=== PATIENT | male | born 1960 | race American Indian/Alaskan Native ===

== ENCOUNTER 2017-02-24 11:29 | Emergency (ER) | payer MEDICARE, MEDICAID ==
[2017-02-24 11:41] VITALS: BP 98/83
[2017-02-24] MEDS ORDERED: Bupivacaine 0.5%/EPINEPHrine 1:200,000 30 ML SDV INJECT ONE (12:02)
--- NOTE | 2017-02-24 12:04 | EDM.PDOC ---
ED HPI Skin/Rash - General Chief Complaint: Skin Complaint Stated Complaint: BOIL ON TESTICLE Time Seen by Provider: 02/24/17 11:51 Source: Reports: Patient - History of Present Illness INITIAL COMMENTS - FREE TEXT/NARRATIVE: Patient here today as he has noted a boil on his scrotum. He first noted this 2 days ago and this is growing and painful. Denies fever/chills. 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 ELECTRICIAN: Reports: Other (see below) Other 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 ELECTRICIAN: percocet at 0600 - Related Data Allergies Allergy/AdvReac Type Severity Reaction Status Date / Time No Known Allergies Allergy Verified 02/24/17 11:33 Home Meds: Ambulatory Orders Medication Instructions Recorded Confirmed Clopidogrel [Plavix] 75 mg PO DAILY 01/15/15 12/09/16 Rosuvastatin [Crestor] 1 tab PO BEDTIME 01/15/15 12/09/16 Cyclobenzaprine [Flexeril] 10 mg PO TID 04/20/16 12/09/16 Isosorbide Mononitrate [Isosorbide 120 mg PO BID 04/20/16 12/09/16 Mononitrate ER] Metoprolol Tartrate [Metoprolol 25 mg PO BID 04/20/16 12/09/16 Tartrate] Ranolazine [Ranexa] 500 mg PO BID 04/20/16 12/09/16 Acetaminophen/oxyCODONE [Percocet 1 tab PO Q8HR PRN 08/15/16 12/09/16 325-5 MG] Fluticasone/Salmeterol [Advair 1 puff INH BID PRN 08/15/16 12/09/16 250-50 Diskus] Pantoprazole [Protonix] 40 mg PO DAILY 08/15/16 12/09/16 Amitriptyline [Elavil] 75 mg PO BEDTIME 09/10/16 12/09/16 Aspirin 81 mg PO BID 09/10/16 12/09/16 Multivits,Ca,Min/Iron/FA/Lycop 1 tab PO DAILY 09/10/16 12/09/16 [Centrum Men's Tablet] Cephalexin [Keflex] 500 mg PO BID #14 capsule 02/24/17 Past Medical History HEENT History: Reports: Impaired vision Cardiovascular History: Reports: Bypass, CAD, High cholesterol, Hypertension, Stents, Other (see below) Other Cardiovascular History: Triple Bypass in November 2012, perpipheral vascular disease; 2 stents of Oct 2016: total of 9 stents. Respiratory History: Reports: Asthma, COPD Gastrointestinal History: Reports: GERD, GI bleed, Inflammatory bowel disease, PUD Genitourinary History: Reports: BPH, Prostate disorder Musculoskeletal History: Reports: Arthritis, Back pain, chronic, RA Other Musculoskeletal History: compression fracture Endocrine/Metabolic History: Reports: Other (see below) Other Endocrine/Metabolic History: hyperglycemia - Past Surgical History Cardiovascular Surgical History: Reports: Coronary artery bypass, Coronary artery stent Musculoskeletal Surgical History: Reports: Other (see below) Other Musculoskeletal Surgeries/Procedures:: lower back surgery, L4-S1 fusion, plate to R ulna, R knee arthroscopy Social & Family History - Family History Family Medical History: Noncontributory - Tobacco Use Smoking Status *Q: Current Every Day Smoker Years of Tobacco use: 45 Packs/Tins Daily: 1 Used Tobacco, but Quit: No - Caffeine Use Caffeine Use: Reports: Coffee, Soda - Alcohol Use Days Per Week of Alcohol Use: 0 - Recreational Drug Use Recreational Drug Use: No - Living Situation & Occupation Living situation: Reports: Occupation: unemployed ED ROS GENERAL - Review of Systems Review Of Systems: See Below Constitutional: Denies: fever, chills, malaise, weakness Respiratory: Reports: No Symptoms Cardiovascular: Reports: No symptoms : Reports: other (boil to scrotum) ED EXAM, SKIN/RASH Exam: See Below Exam Limited By: No limitations General Appearance: alert, WD/WN, no apparent distress Respiratory/Chest: no respiratory distress, lungs clear Cardiovascular: regular rate, rhythm, no murmur GI/Abdominal: normal bowel sounds, soft, non tender (Male) Exam: Other (Abscess to mid-scrotum adjacent to perineum. ) Skin: Warm, Dry, Other (scrotal abscess with warmth and erythema) ED SKIN PROCEDURES - I&D Site: scrotum Skin prep: providone-iodine (betadine), isopropyl alcohol (alcohol) Local anesthesia - Bupivicaine (Marcaine): 0.5% plain Local anesthetic volume: 4cc Area incised with: 11 blade Drainage: purulent, moderate amount Sterile dressing: other (Gauze) Complications: No Course - Vital Signs Last Recorded V/S: Last Vital Signs Temp 96.6 F 02/24/17 11:34 Pulse 96 02/24/17 11:34 Resp 16 02/24/17 11:34 BP 98/83 02/24/17 11:34 Pulse Ox 98 02/24/17 11:34 - Orders/Labs/Meds Orders: Active Orders 24 hr Category Date Time Status CULTURE WOUND [RM] Stat Lab 02/24/17 12:20 Received Meds: Medications Discontinued Medications Generic Name Dose Route Start Last Admin Trade Name Wu PRN Reason Stop Dose Admin Bupivacaine HCl 10 ml 02/24/17 12:10 02/24/17 12:23 Sensorcaine-Mpf 0.5% INJECT 02/24/17 12:11 10 ml ONETIME ONE Administration - Re-Assessments/Exams Free Text/Narrative Re-Assessment/Exam: Options discussed, patient is anti-coagulated due to atrial fibrillation so initial treatment with PO antibiotics was recommended. Patient requesting this to be drained, R/V/SE discussed at length and patient verbalized understanding of this. Consent was signed, area drained without difficulty and very minimal bleeding. Will start Keflex BID x7 days. Wound care instructions discussed, patient verbalized understanding of this. He is to follow-up with PCP on Monday. 02/24/17 22:06 Departure - Departure Time of Disposition: 12:25 Disposition: Home, Self-Care 01 Condition: good Clinical Impression: Scrotal abscess Prescriptions: Cephalexin [Keflex] 500 mg PO BID #14 capsule Instructions: Abscess Referrals: Danny Espino MD [Primary Care Provider] - Forms: ED Department Discharge Additional Instructions: Keep area clean and dry. Apply warm compresses to keep this draining. Take full course of antibiotics, I recommend probiotic with this. Follow-up with primary provider next week or certainly back to ER if any worsening or fever > 101F. - My Orders Last 24 Hours: My Active Orders 02/24/17 12:20 CULTURE WOUND [RM] Stat - Assessment/Plan Last 24 Hours: My Active Orders 02/24/17 12:20 CULTURE WOUND [RM] Stat
[2017-02-24] MEDS ORDERED: Bupivacaine 0.5% 10 ML SDV INJECT ONE (12:10)
== END 2017-02-24 12:45 | disposition home or self-care (01) ==
LOC: JD.ED 11:29
DX: N49.2 Inflammatory disorders of scrotum (principal); E78.00 Pure hypercholesterolemia, unspecified; I25.10 Atherosclerotic heart disease of native coronary artery without angina pectoris; I11.9 Hypertensive heart disease without heart failure; Z95.5 Presence of coronary angioplasty implant and graft; K21.9 Gastro-esophageal reflux disease without esophagitis; F17.210 Nicotine dependence, cigarettes, uncomplicated; Z79.899 Other long term (current) drug therapy
CPT/HCPCS: 54700; 56405; 87070; 99283; 99284-25

== ENCOUNTER 2017-03-29 10:29 | Day surgery (SDC) | payer OTHER, MEDICAID, MEDICARE ==
--- NOTE | 2017-03-29 05:52 | PCM.HP ---
H&P History of Present Illness - General Date of Service: 03/29/17 Admit Problem/Dx: sebaceous cyst to right chest, reflux, heartburn, history of tubular adenomatous colon polyps, family hx of colon cancer -nephew age 40, opioid induced constipation, tobacco dependence, left flank pain need for diagnostic EGD and surveillance colonoscopy and excision of chest sebaceous cyst. Source of Information: Patient History Limitations: Reports: No limitations - History of Present Illness Initial Comments - Free Text/Narative: The patient is a 56-year-old male referred by Dr. Espino for colonoscopy and sebaceous cyst removal. The patient presents today for the above noted concern. He was last evaluated in the clinic on 01/25/17. Patient has significant cardiac history. Patient was cleared for procedure by Dr. Mora. However, it was noted if this was a screening colonoscopy he could not stop the Plavix. If there were known lesions he could stop 7 days prior. He was instructed to stay on aspirin. Case discussed with Dr. Perez. Dr. Perez's polyp detection rate is 50%. Paitent instructed to stop Plavix 5 days prior to endoscopy. Dr. Perez was aware of risks. Patient was to continue aspirin. Dr. Mora's office updated. patient denies any major health changes since his last visit. He did complete the prep. He has had some intermittent nausea lately. He has some LUQ pain today. He has had this off and on, mostly in the flank, today, is more abdominal. He has been holding his Plavix since . He has been taking his aspirin. The patient has hx of intermittent constipation.. Has hx of adenomatous colon polyp. NO: diarrhea/ hematochezia/ melena/blood on tissue paper. Told he had internal hemorrhoids. Has 1 soft, brown, formed, BMs daily to every three days. Bowel movements are described as regular and easy to hard pass. No unintentional weight loss. Has lost weight cut out soda was drinking 6 plus sodas daily, now down to 3 sodas daily. No change in stool caliber. Denies history of ulcerative colitis or Crohn's disease. Denies any family history of inflammatory bowel disease. Family hx of colon cancer at 40 in a nephew. He thought last colonoscopy was at age 40 ( however, last colonoscopy 2011 with adenomatous polyp and three year follow up recommended.) Has reflux, heartburn. Takes Protonix. Has had reflux for years. Has had EGDs in the past. Last EGD was 5-10 years ago in [place]. Told he had a ulcer, "told he was missing a door." He still does have reflux and reflux come up his nose. No vomit on his pillows. Nothing makes reflux better. Spicy foods and tomatoes make symptoms worse. Has nausea. NO: vomiting, or dysphagia. He does smoke cigarettes. He has a sebaceous cyst that he is concerned about to his central chest. He reports the cyst seems to come and go and he will squeeze it and get a white bloody stinky discharge out of it. Cyst is still bothersome, no signs of infection. - Related Data Allergies/Adverse Reactions: Allergies Allergy/AdvReac Type Severity Reaction Status Date / Time No Known Allergies Allergy Verified 03/28/17 15:23 Home Medications: Home Meds Clopidogrel [Plavix] 75 mg PO DAILY 01/15/15 [History] Rosuvastatin [Crestor] 20 mg PO BEDTIME 01/15/15 [History] Metoprolol Tartrate [Metoprolol Tartrate] 25 mg PO BID 04/20/16 [History] Acetaminophen/oxyCODONE [Percocet 325-5 MG] 1 tab PO Q8HR PRN 08/15/16 [History] Pantoprazole [Protonix] 40 mg PO DAILY 08/15/16 [History] Amitriptyline [Elavil] 75 mg PO BEDTIME 09/10/16 [History] Aspirin 81 mg PO BID 09/10/16 [History] Fish Oil/[place]-3 Fatty Acids [Fish Oil 1,000 MG] 1,000 mg PO DAILY 03/28/17 [ History] Ipratropium/Albuterol Sulfate [Combivent Respimat Inhal [place]] 1 puff INH ASDIRECTED 03/28/17 [History] Isosorbide Mononitrate [Isosorbide Mononitrate ER] 60 mg PO DAILY 03/28/17 [ History] Lisinopril 10 mg PO DAILY 03/28/17 [History] Nitroglycerin [Nitrostat] 0.4 mg SL ASDIRECTED PRN 03/28/17 [History] Orphenadrine [Norflex] 100 mg PO ASDIRECTED PRN 03/28/17 [History] Ranolazine [Ranexa] 500 mg PO DAILY 03/28/17 [History] Umeclidinium Brm/Vilanterol Tr [Anoro Ellipta 62.5-25 Mcg INH] 1 puff INH DAILY 03/28/17 [History] metFORMIN [Glucophage XR] 500 mg PO DAILY 03/28/17 [History] traMADol HCl [Tramadol HCl] 50 mg PO QID PRN 03/28/17 [History] Past Medical History HEENT History: Reports: Hard of hearing, Impaired vision, Other (see below) Other HEENT History: hard of hearing Cardiovascular History: Reports: Bypass, CAD, High cholesterol, Hypertension, Stents, Other (see below) Other Cardiovascular History: Triple Bypass in November 2012, perpipheral vascular disease; 2 stents of Oct 2016: total of 9 stents. 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 Musculoskeletal History: Reports: Arthritis, Back pain, chronic, RA Other Musculoskeletal History: compression fracture, chronic pain, lumbar degenerative disc disease, polyarthraliga, sternum pain Neurological History: Reports: None Psychiatric History: Reports: None Endocrine/Metabolic History: Reports: Diabetes, type II, Other (see below) Other Endocrine/Metabolic History: hyperglycemia Hematologic History: Reports: None Immunologic History: Reports: None Oncologic (Cancer) History: Reports: None Dermatologic History: Reports: Other (see below) Other Dermatologic History: sebaceous cyst - Past Surgical History Cardiovascular Surgical History: Reports: Coronary artery bypass, Coronary artery stent GI Surgical History: Reports: Colonoscopy, EGD Musculoskeletal Surgical History: Reports: Other (see below) Other Musculoskeletal Surgeries/Procedures:: lower back surgery, L4-S1 fusion, plate to R ulna, R knee arthroscopy Social & Family History - Family History Family Medical History: Noncontributory - Tobacco Use Smoking Status *Q: Current Every Day Smoker Years of Tobacco use: 45 Packs/Tins Daily: 1 Used Tobacco, but Quit: No - Caffeine Use Caffeine Use: Reports: Coffee, Soda - Alcohol Use Days Per Week of Alcohol Use: 0 - Recreational Drug Use Recreational Drug Use: No - Living Situation & Occupation Living situation: Reports: Occupation: unemployed H&P Review of Systems - Review of Systems: Review Of Systems: See Below Free Text/Narrative: Denies any exertional chest pain. Has exertional shortness of breath. Has chronic non-exertional chest pain. History of any easy bleeding or bruising. No personal history of clotting or bleeding disorders. He thinks his sister has a clotting disorder. Sister is diabetic. No history of anesthetic complications. No history of familial anesthetic complications. Has chronic chest pain. Has been evaluated by cardiology. He has hx of chest pain. NO: Palpitations. Occasionally has lower extremity edema. NO: dyspnea at rest. Has Orthopnea. NO: claudication. Has wheezing, obstructive sleep apnea , chronic cough. NO: upper respiratory symptoms in the last two weeks. History of blood thinner use, has been on Plavix since 2012. Slight anemia presently, 13.7. No history of seizure or stroke. No history of fever, chills, or nightsweats. Follows with Dr. Mora [facility] in cardiology. -Hx of CABG in 2012. Hx of 7 plus cardiac stents placed. Reports last stent placement was September 2016. -History of severe ischemic heart disease history of bypass as well as multivessel angioplasty and stenting. -March 2016: Angiography and occluded vein graft to RCA with stenting. -September 2016: Presented to [facility] ED for chest pain -September 2016 CT no PE, no dissecting aneurysm. Multiple very small soft tissue nodule; reveals unchanged from prior CT 10/19/2016: Coronary artery catheterization EF greater than 55%. Angioplasty as well as stenting of vein graft to RCA. Placement of primary stenting of proximal RCA using drug-eluting stent. 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 Patient was diagnosed with chronic chest pain syndrome. His school office assistant did not feel his chest pain was related to his ischemic heart disease. He felt he was optimized from a cardiac standpoint. Follow up in 6 months is recommended. EKG 09/29/2016 reportedly normal ECG in sinus rhythm. I do not see the actual EKG tracing. This in the ED report from [facility] in [place]. NO: pulmonology evaluation. Hx of back pain. History of chronic left flank pain. History of chronic pain. Follows with pain management. Denies any UTI symptoms. Recent UA negative. Records received from [facility]: Appears patient had colonoscopy 03/27/2012. Follow up colonoscopy was recommended 3 years due to tubular adenoma. I did not get the actual operative report. CABG x3 in 2012 Cardiac cath November 2013 Amoxicillin is listed as an allergy 01/23/2014 Persantine nuclear stress test negative for ischemia EF was 47%. I did locate mention of an EGD completed 08/09/2011 that showed a hiatal hernia , duodenitis, normal esophagus and stomach Diverticulosis on CT scan in [place] Hx updated All other systems reviewed and were negative except as per history of present illness. General: Reports: no symptoms. Denies: fever, chills HEENT: Reports: no symptoms Pulmonary: Reports: No Symptoms. Denies: Shortness of Breath Cardiovascular: Reports: no symptoms. Denies: chest pain, palpitations Gastrointestinal: Reports: Abdominal pain (left flank pain; hx constipation; did finish prep; intermittent nausea recently), Other (see hpi) Genitourinary: Reports: no symptoms Musculoskeletal: Reports: other (chronic joint pain) Skin: Reports: other (sebaceous cyst to right chest is bothersome; no s/s infection) Psychiatric: Reports: no symptoms Neurological: Reports: No Symptoms Hematologic/Lymphatic: Reports: no symptoms, other (stopped Plavix on 03/22) Immunologic: Reports: no symptoms Exam - Exam Exam: See Below - Vital Signs Weight: 112.945 kg - Exam General: alert, oriented HEENT: Conjunctiva clear. No: Scleral icterus Lungs: Clear to auscultation, Normal respiratory effort Cardiovascular: regular rate, regular rhythm, normal S1, normal S2 Abdomen: normal bowel sounds, soft, tenderness (LUQ, mild -moderate) Back Exam: normal inspection Extremities: normal inspection. No: clubbing, cyanosis, edema Skin: warm, dry, intact, other (small cystic lesion to right chest, to the right of upper sternotomy scar) Neuro Extensive - Mental Status: alert, oriented x3, normal mood/affect, normal cognition Psychiatric: alert, normal affect, normal mood *Q Meaningful Use (ADM) - VTE *Q VTE Criteria *Q: - Stroke *Q Stroke Criteria *Q: - AMI *Q AMI Criteria *Q: - Problem List (1) Reflux esophagitis SNOMED Code(s): 370826103 ICD Code: K21.0 - GASTRO-ESOPHAGEAL REFLUX DISEASE WITH ESOPHAGITIS Status : Acute Current Visit: Yes (2) Heartburn SNOMED Code(s): 42396143 ICD Code: R12 - HEARTBURN Status: Acute Current Visit: Yes (3) History of adenomatous polyp of colon SNOMED Code(s): 298510144 ICD Code: Z86.010 - PERSONAL HISTORY OF COLONIC POLYPS Status: Acute Current Visit: Yes (4) Family history of colon cancer SNOMED Code(s): 320593237 ICD Code: Z80.0 - FAMILY HISTORY OF MALIGNANT NEOPLASM OF DIGESTIVE ORGANS Status: Acute Current Visit: Yes (5) Cyst SNOMED Code(s): 974890104 ICD Code: REH1297 - Status: Acute Current Visit: Yes (6) Constipation SNOMED Code(s): 40941304 ICD Code: K59.00 - CONSTIPATION, UNSPECIFIED Status: Acute Current Visit : Yes (7) Left lateral abdominal pain SNOMED Code(s): 299831738 ICD Code: R10.9 - UNSPECIFIED ABDOMINAL PAIN Status: Acute Current Visit : Yes (8) Abdominal pain SNOMED Code(s): 40193968 ICD Code: R10.9 - UNSPECIFIED ABDOMINAL PAIN Status: Acute Current Visit : No Qualifiers: Abdominal location: left upper quadrant Qualified Code(s): R10.12 - Left upper quadrant pain Problem List Initiated/Reviewed/Updated: Yes Orders Last 24hrs: Active Orders 24 hr Category Date Time Status Peripheral IV Care [RC] . DIRECTED Care 03/29/17 00:01 Active Verify Patient Consent Obtain [RC] ASDIRECTED Care 03/29/17 00:01 Active Lactated Ringers [Ringers, Lactated] 1,000 ml Med 03/29/17 00:01 Active IV ASDIRECTED Lidocaine 1%/Sod Bicarbonate [Buffered Lidocaine 1% in Med 03/29/17 00:01 Active NS 8.4%] 0.25 ml IV ONETIME PRN Sodium Chloride 0.9% [Saline Flush] Med 03/29/17 00:01 Active 10 ml FLUSH ASDIRECTED PRN Medication Administration Instruction [OM.PC] Routine Oth 03/29/17 00:01 Ordered Peripheral IV Insertion Adult [OM.PC] Routine Oth 03/29/17 00:01 Ordered Medication Orders Lactated Ringer's (Ringers, Lactated) 1,000 mls @ 125 mls/hr IV ASDIRECTED BRYCE Lidocaine/Sodium Bicarbonate (Buffered Lidocaine 1% In Ns 8.4%) 0.25 ml IV ONETIME PRN PRN Reason: Prior to IV Start Sodium Chloride (Saline Flush) 10 ml FLUSH ASDIRECTED PRN PRN Reason: Keep Vein Open Assessment/Plan Comment:: 56 year old male with sebaceous cyst to right chest, reflux, heartburn, history of tubular adenomatous colon polyps, family hx of colon cancer -nephew age 40, opioid induced constipation, left lateral abdominal pain, need for diagnostic EGD and surveillance colonoscopy and excision of chest sebaceous cyst. We discussed performing a diagnostic EGD and surveillance colonoscopy with excision of chest sebaceous cyst. We discussed the procedure and post operative expectations. We reviewed the risks and benefits of the procedure including pain , bleeding, infection, damage to surrounding structures, need for additional procedures, bowel perforation. Informed consent was obtained. This procedure will be done today at [facility] due to multiple comorbidities. Patient evaluated with Dr. Thalia Perez. Plan formulated by Dr. Thalia Perez. Anne-Marie Núñez NP scribing for Dr. Thalia Perez
--- NOTE | 2017-03-29 09:51 | PCM.PREANE ---
Preanesthetic Assessment - Anesthesia/Transfusion/Family Hx Anesthesia History: Prior Anesthesia Without Reaction Family History of Anesthesia Reaction: No Transfusion History: No Prior Transfusion(s) Intubation History: Unknown - Review of Systems General: No Symptoms Pulmonary: No Symptoms (History of COPD/smokes 0.75 packs/day times 45 years.), Wheezing (when asleep), Cough Cardiovascular: No Symptoms (History of HTN, CAD, CABG (2012) times 3,history of 9 plus cardiac stents placed with last ZACKERY stent placed 10/19/16, CHF, chronic chest pain syndrome, 10/19/16 Coronay artery catheterization EF greater than 55%), Dyspnea on Exertion, Lightheadedness (with over exertion.) Gastrointestinal: No symptoms (GERD), Constipation Neurological: No Symptoms (poly arthralgia's noted.), Numbness (chronic midline low back pain with bilateral sciatica), Tingling (left hand third finger tingling noted.), Difficulty Walking (patient walks currently with a cane.) Other: Reports: None (history of chronic back pain), Easy Bleeding, Easy Bruising, Diabetes (am blood sugar @ 1047= 136), Neck Pain (stiffness on occasion.) - Physical Assessment NPO Status Date: 03/29/17 NPO Status Time: 00:01 Pulse: 97 O2 Sat by Pulse Oximetry: 96 Respiratory Rate: 16 Blood Pressure: 130/100 Temperature: 36.2 C Height: 1.85 m Weight: 111 kg ASA Class: 3 Mental Status: Alert & Oriented x3 Airway Class: Mallampati = 2 Dentition: Reports: Dentures (upper), Partial, Missing Tooth/Teeth, Caries ( poor dentition noted.) Thyro-Mental Finger Breadths: 3 Mouth Opening Finger Breadths: 3 ROM/Head Extension: Full Lungs: Clear to auscultation, Normal respiratory effort, Decreased breath sounds Cardiovascular: Regular Rate, Regular Rhythm - Lab Values: hgb=13.7 hct=40.7 platelets= 302,000 bun=8 Cr=1.10 by=562 k=4.5 wj=562 co2=26 - Imaging/EKG Impressions: EKG: SR without any ischemia. - Allergies Allergies/Adverse Reactions: Allergies Allergy/AdvReac Type Severity Reaction Status Date / Time No Known Allergies Allergy Verified 03/28/17 15:23 - Anesthesia Plan Pre-Op Medication Ordered: Beta Martha Beta Martha: Metoprolol Med Last Dose Date: 03/29/17 Med Last Dose Time: 07:30 - Acknowledgements Anesthesia Type Planned: MAC Pt an Appropriate Candidate for the Planned Anesthesia: Yes Alternatives and Risks of Anesthesia Discussed w Pt/Guardian: Yes Pt/Guardian Understands and Agrees with Anesthesia Plan: Yes PreAnesthesia Questionnaire HEENT History: Reports: Hard of hearing, Impaired vision, Other (see below) Other HEENT History: hard of hearing Cardiovascular History: Reports: Bypass, CAD, High cholesterol, Hypertension, Stents, Other (see below) Other Cardiovascular History: Triple Bypass in November 2012, perpipheral vascular disease; 2 stents of Oct 2016: total of 9 stents. 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 Musculoskeletal History: Reports: Arthritis, Back pain, chronic, RA Other Musculoskeletal History: compression fracture, chronic pain, lumbar degenerative disc disease, polyarthraliga, sternum pain Neurological History: Reports: None Psychiatric History: Reports: None Endocrine/Metabolic History: Reports: Diabetes, type II, Other (see below) Other Endocrine/Metabolic History: hyperglycemia Hematologic History: Reports: None Immunologic History: Reports: None Oncologic (Cancer) History: Reports: None Dermatologic History: Reports: Other (see below) Other Dermatologic History: sebaceous cyst - Past Surgical History Cardiovascular Surgical History: Reports: Coronary artery bypass, Coronary artery stent GI Surgical History: Reports: Colonoscopy, EGD Musculoskeletal Surgical History: Reports: Other (see below) Other Musculoskeletal Surgeries/Procedures:: lower back surgery, L4-S1 fusion, plate to R ulna, R knee arthroscopy - SUBSTANCE USE Smoking Status *Q: Current Every Day Smoker Tobacco Use Within Last Twelve Months: Cigarettes Days Per Week of Alcohol Use: 0 Recreational Drug Use History: No - HOME MEDS Home Medications: Home Meds Clopidogrel [Plavix] 75 mg PO DAILY 01/15/15 [History] Rosuvastatin [Crestor] 20 mg PO BEDTIME 01/15/15 [History] Metoprolol Tartrate [Metoprolol Tartrate] 25 mg PO BID 04/20/16 [History] Acetaminophen/oxyCODONE [Percocet 325-5 MG] 1 tab PO Q8HR PRN 08/15/16 [History] Pantoprazole [Protonix] 40 mg PO DAILY 08/15/16 [History] Amitriptyline [Elavil] 75 mg PO BEDTIME 09/10/16 [History] Aspirin 81 mg PO BID 09/10/16 [History] Fish Oil/[place]-3 Fatty Acids [Fish Oil 1,000 MG] 1,000 mg PO DAILY 03/28/17 [ History] Ipratropium/Albuterol Sulfate [Combivent Respimat Inhal [place]] 1 puff INH ASDIRECTED 03/28/17 [History] Isosorbide Mononitrate [Isosorbide Mononitrate ER] 60 mg PO DAILY 03/28/17 [ History] Lisinopril 10 mg PO DAILY 03/28/17 [History] Nitroglycerin [Nitrostat] 0.4 mg SL ASDIRECTED PRN 03/28/17 [History] Orphenadrine [Norflex] 100 mg PO ASDIRECTED PRN 03/28/17 [History] Ranolazine [Ranexa] 500 mg PO DAILY 03/28/17 [History] Umeclidinium Brm/Vilanterol Tr [Anoro Ellipta 62.5-25 Mcg INH] 1 puff INH DAILY 03/28/17 [History] metFORMIN [Glucophage XR] 500 mg PO DAILY 03/28/17 [History] traMADol HCl [Tramadol HCl] 50 mg PO QID PRN 03/28/17 [History] - CURRENT (IN HOUSE) MEDS Current Meds: Current Medications Lactated Ringer's (Ringers, Lactated) 1,000 mls @ 125 mls/hr IV ASDIRECTED BRYCE Lidocaine/Sodium Bicarbonate (Buffered Lidocaine 1% In Ns 8.4%) 0.25 ml IV ONETIME PRN PRN Reason: Prior to IV Start Sodium Chloride (Saline Flush) 10 ml FLUSH ASDIRECTED PRN PRN Reason: Keep Vein Open
[~2017-03-29 10:29] MED LIST: Lactated Ringers 1,000 ML IV SCH; Lidocaine 1%/Sod Bicarbonate in NS 8.4% 1 ML Syringe IV PRN; Sodium Chloride 0.9% 10 ML Syringe FLUSH PRN
[2017-03-29] MEDS ORDERED: Lidocaine 1% with EPINEPHrine 1:100,000 20 ML MDV ONE (10:52)
[2017-03-29] MEDS ORDERED: Bupivacaine 0.5%/EPINEPHrine 1:200,000 50 ML MDV ONE (10:53)
[2017-03-29] MEDS ORDERED: Bacitracin Oint 15 GM Tube ONE (11:54)
[2017-03-29] MEDS ORDERED: Propofol 200 MG/20 ML SDV ONE ×2 (11:56→12:29)
[2017-03-29] MEDS ORDERED: Lidocaine 1% 4 ML ONE (11:56)
[2017-03-29] MEDS ORDERED: Midazolam 1 MG/ML 2 ML SDV ONE (11:56)
[2017-03-29] MEDS ORDERED: fentaNYL 100 MCG/2 ML SDV ONE (11:56)
--- NOTE | 2017-03-29 12:49 | PCM48HPAN ---
Post Anesthesia Note - EVALUATION WITHIN 48HRS OF ANESTHETIC Vital Signs in Normal Range: Yes Patient Participated in Evaluation: Yes Respiratory Function Stable: Yes Airway Patent: Yes Cardiovascular Function Stable: Yes Hydration Status Stable: Yes Pain Control Satisfactory: Yes Nausea and Vomiting Control Satisfactory: Yes Mental Status Recovered: Yes
--- NOTE | 2017-03-29 12:52 | PCM.OPNOTE ---
- General Post-Op/Procedure Note Date of Surgery/Procedure: 03/29/17 Operative Procedure(s): Diagnostic EGD with cold forceps biopsy, Diagnostic colonoscopy with hot snare and cold forceps polypectomy, Excision of chest wall sebaceous cyst Pre Op Diagnosis: Chest wall sebaceous cyst, reflux, heartburn, history of adenomatous colon polyps Post-Op Diagnosis: Sebaceous cyst, colon polyps, poor prep Anesthesia Technique: MAC Primary Surgeon: Thalia Perez Anesthesia Provider: Ty Gill Emergency Operator: Anne-Marie Núñez Pathology: 1. Small bowel biopsy 2. Antral biopsy 3. Distal esophageal biopsy 4. Ascending colon polyp 5. Hepatic flexure polyp 6. Transverse colon polyp 7. Splenic flexure polyp 8. Descending colon polyp 9. Rectal polyp 10. Chest wall sebaceous cyst Fluid Replacement, Intraop: 1,000 (mL crystalloid ) EBL in mLs: 1 Complications: None Condition: Good Free Text/Narrative:: INDICATION FOR PROCEDURE: The patient is a 56-year-old man who was referred to me by Dr. Danny Espino for evaluation for GERD, heartburn, sebaceous cyst, personal history of adenomatous polyps, family history of colon cancer in a nephew. Performing a colonoscopy and EGD as well as the removal of the chest sebaceous cyst and the associated risks of the procedures had been discussed with the patient. The patient found these risks acceptable and agreed to proceed. DESCRIPTION OF PROCEDURE: The patient was taken to the operating room and placed in the supine position. The chest was prepped and draped in usual sterile fashion. Local anesthetic was injected and treat the lesion which had been preoperatively marked. A 6 mm punch was used to excise to excise the central punctum and associated surrounding tissue down to subcutaneous fat. The specimen was passed off the field. The skin was then approximated using 2 interrupted 4-0 Monocryl sutures. Bacitracin and Band-Aid was applied. The patient was then repositioned into the left lateral decubitus position. After induction of adequate sedation, a bite block was placed. A standard Olympus gastroscope was inserted into the oropharynx and guided down the esophagus without difficulty. The gastroesophageal junction was appreciated at 42 cm from the teeth. There was no evidence of stricture or esophageal ulcerations. The scope was advanced into the stomach, and there were no ulcers or obvious inflammation. The scope was passed into the proximal jejunum and the duodenum which were unremarkable. There were no petechiae or ulcerations. The proximal jejunum was grossly normal in appearance. Multiple cold forceps biopsies were obtained of the proximal jejunum and duodenum. The scope was withdrawn into the antrum, and additional cold forceps biopsies were obtained. The remainder of the gastric body was examined, and there were no additional findings. The scope was retroflexed, and there was no evidence of hiatal hernia. The scope was straightened and withdrawn to the GE junction. Additional cold forceps biopsies were obtained of the distal esophagus. The scope was withdrawn through the remainder of the esophagus and no further abnormalities were noted. The posterior oropharynx was grossly normal in appearance. The scope was fully withdrawn and attention was then turned to the colonoscopy. A digital rectal exam was performed which was unremarkable. The prostate was non-nodular. An adult Olympus colonoscope was inserted into the rectum and guided under direct visualization to the appendiceal orifice and ileocecal valve. The patient's prep quality was poor, views were about 50% in the ascending colon and the transverse colon as well as part of the descending colon due to retained solid stool that could not be irrigated or suctioned. The scope was then slowly withdrawn through the colon. There was no evidence of angiodysplasias. There were numerous small polyps noted throughout the colon. A small ascending colon polyp was noted and removed using hot snare and retrieved. A hepatic flexure small sessile polyp was noted and removed using hot snare and retrieved. A transverse colon polyp was removed using cold forceps biopsies. A splenic flexure colon polyp was removed using hot snare and retrieved. A descending colon polyp was removed using hot snare and retrieved. A rectal polyp was removed using hot snare and retrieved. The scope was withdrawn into the rectum and retroflexed. There was no significant prominence of the patient's internal hemorrhoids. The scope was straightened, the colon was desufflated, and the scope was withdrawn. The patient was awakened from sedation and transferred to the recovery room in stable condition having tolerated the procedure well. POSTOPERATIVE PLAN: I discussed with the patient and his my intraoperative findings and recommendations. The patient will follow up in approximately 2 weeks to discuss pathology and how their symptoms are progressing. I do think the patient may benefit from a gallbladder workup as his upper endoscopy was fairly unremarkable given his symptoms. The patient is to restart his Plavix tomorrow. We will also remove any remaining sutures at the time of his followup visit. He will need a repeat colonoscopy in no greater than one year due to the poor quality of his prep and we discussed this. The patient is to call with any worsening of symptoms or questions prior to the appointment.
[2017-03-29 13:40] VITALS: BP 111/71
== END 2017-03-29 13:31 | disposition home or self-care (01) ==
LOC: JD.SDS 10:29
PROVIDERS: ATTEND Surgery
PROC: 0DBK8ZX Excision of Ascending Colon, Via Natural or Artificial Opening Endoscopic, Diagnostic (ICD-10-PCS; principal; 2017-03-29)
PROC: 0DBL8ZX Excision of Transverse Colon, Via Natural or Artificial Opening Endoscopic, Diagnostic (ICD-10-PCS; 2017-03-29)
PROC: 0DBP8ZX Excision of Rectum, Via Natural or Artificial Opening Endoscopic, Diagnostic (ICD-10-PCS; 2017-03-29)
PROC: 0DBL8ZX Excision of Transverse Colon, Via Natural or Artificial Opening Endoscopic, Diagnostic (ICD-10-PCS; 2017-03-29)
PROC: 0DB68ZX Excision of Stomach, Via Natural or Artificial Opening Endoscopic, Diagnostic (ICD-10-PCS; 2017-03-29)
PROC: 0HB5XZZ Excision of Chest Skin, External Approach (ICD-10-PCS; 2017-03-29)
DX: K21.0 Gastro-esophageal reflux disease with esophagitis (principal); K59.00 Constipation, unspecified; L72.3 Sebaceous cyst; Z80.0 Family history of malignant neoplasm of digestive organs; R10.9 Unspecified abdominal pain; Z95.1 Presence of aortocoronary bypass graft; Z98.61 Coronary angioplasty status; I10 Essential (primary) hypertension; I73.9 Peripheral vascular disease, unspecified; F17.210 Nicotine dependence, cigarettes, uncomplicated
CPT/HCPCS: 11400; 43239; 45380; 45385; 82962; 88304; 88305; A9270; J2250; J3010; J7120; 00400; J2704

== ENCOUNTER 2017-06-27 19:35 | Emergency (ER) | payer MEDICARE, OTHER, MEDICAID ==
[2017-06-27] MEDS ORDERED: Nitroglycerin 0.4 MG Tab.SL SL PRN (19:58)
[2017-06-27] MEDS ORDERED: Aspirin 81 MG Tab.Chew PO ONE (19:58)
--- NOTE | 2017-06-27 19:58 | EDM.PDOC ---
ED HPI GENERAL MEDICAL PROBLEM - General Chief Complaint: Chest Pain Stated Complaint: CHEST PAIN Time Seen by Provider: 06/27/17 19:51 - History of Present Illness INITIAL COMMENTS - FREE TEXT/NARRATIVE: 56-year-old male presents emergency room with chest pain. This chest pain started early this morning around 3 AM. Describes his pain as a 10 out of 10 it is subsided to about a 9 out of 10 at this point. Patient has advanced coronary artery disease he had three-vessel bypass in November 2012 and after that time he's had 9 stents placed most recently 2 stents placed in October of this last year cording to the patient he has a non-operable lesion. Patient has not had any associated nausea vomiting or shortness of breath the pain is substernal. Patient has not used nitroglycerin because he's been told not to use because his blood pressure drops. Patient is treated for hypertension hyperlipidemia and he continues to smoke. Chest Pain Score (Numeric/FACES): 9 - Related Data Allergies Allergy/AdvReac Type Severity Reaction Status Date / Time No Known Allergies Allergy Verified 06/27/17 19:43 Home Meds: Home Meds Clopidogrel [Plavix] 75 mg PO DAILY 01/15/15 [History] Rosuvastatin [Crestor] 20 mg PO BEDTIME 01/15/15 [History] Metoprolol Tartrate 25 mg PO BID 04/20/16 [History] Acetaminophen/oxyCODONE [Percocet 325-5 MG] 1 tab PO Q8HR PRN 08/15/16 [History] Pantoprazole [ProTONIX] 40 mg PO DAILY 08/15/16 [History] Amitriptyline [Elavil] 75 mg PO BEDTIME 09/10/16 [History] Aspirin 81 mg PO BID 09/10/16 [History] Fish Oil/[place]-3 Fatty Acids [Fish Oil 1,000 MG] 1,000 mg PO DAILY 03/28/17 [ History] Ipratropium/Albuterol Sulfate [Combivent Respimat Inhal [place]] 1 puff INH ASDIRECTED 03/28/17 [History] Isosorbide Mononitrate [Isosorbide Mononitrate ER] 60 mg PO DAILY 03/28/17 [ History] Lisinopril 10 mg PO DAILY 03/28/17 [History] Nitroglycerin [Nitrostat] 0.4 mg SL ASDIRECTED PRN 03/28/17 [History] Orphenadrine [Norflex] 100 mg PO ASDIRECTED PRN 03/28/17 [History] Ranolazine [Ranexa] 500 mg PO DAILY 03/28/17 [History] Umeclidinium Brm/Vilanterol Tr [Anoro Ellipta 62.5-25 Mcg INH] 1 puff INH DAILY 03/28/17 [History] metFORMIN [Glucophage XR] 500 mg PO DAILY 03/28/17 [History] traMADol HCl [Tramadol HCl] 50 mg PO QID PRN 03/28/17 [History] Past Medical History HEENT History: Reports: Hard of Hearing, Impaired Vision, Other (See Below) Other HEENT History: hard of hearing Cardiovascular History: Reports: Bypass, CAD, High Cholesterol, Hypertension, Stents, Other (See Below) Other Cardiovascular History: Triple Bypass in November 2012, perpipheral vascular disease; 2 stents of Oct 2016: total of 9 stents. 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 Musculoskeletal History: Reports: Arthritis, Back Pain, Chronic, RA Other Musculoskeletal History: compression fracture, chronic pain, lumbar degenerative disc disease, polyarthraliga, sternum pain Neurological History: Reports: None Psychiatric History: Reports: None Endocrine/Metabolic History: Reports: Diabetes, Type II, Other (See Below) Other Endocrine/Metabolic History: hyperglycemia Hematologic History: Reports: None Immunologic History: Reports: None Oncologic (Cancer) History: Reports: None Dermatologic History: Reports: Other (See Below) Other Dermatologic History: sebaceous cyst - Past Surgical History Cardiovascular Surgical History: Reports: Coronary Artery Bypass, Coronary Artery Stent Musculoskeletal Surgical History: Reports: Other (See Below) Social & Family History - Family History Family Medical History: Noncontributory - Tobacco Use Smoking Status *Q: Current Every Day Smoker Years of Tobacco use: 25 Packs/Tins Daily: 0.2 Used Tobacco, but Quit: No - Caffeine Use Caffeine Use: Reports: Coffee, Soda - Alcohol Use Days Per Week of Alcohol Use: 0 - Recreational Drug Use Recreational Drug Use: No - Living Situation & Occupation Living situation: Reports: Occupation: Unemployed ED ROS GENERAL - Review of Systems Review Of Systems: See Below Constitutional: Reports: No Symptoms HEENT: Reports: No Symptoms Respiratory: Denies: Shortness of Breath, Cough, Sputum Cardiovascular: Reports: Dyspnea on Exertion. Denies: Chest Pain, Edema, Palpitations GI/Abdominal: Reports: Abdominal Pain. Denies: Constipation, Diarrhea, Nausea, Vomiting : Reports: No Symptoms Skin: Reports: No Symptoms Neurological: Reports: No Symptoms Psychiatric: Reports: No Symptoms ED EXAM, GENERAL - Physical Exam Exam: See Below Exam Limited By: No Limitations General Appearance: Alert, No Apparent Distress Ears: Normal External Exam, Normal Canal, Hearing Grossly Normal, Normal TMs Nose: Normal Inspection, Normal Mucosa Throat/Mouth: Normal Inspection, Normal Oropharynx, No Airway Compromise Head: Atraumatic Neck: Normal Inspection, Supple, Non-Tender, Full Range of Motion. No: Lymphadenopathy (L), Lymphadenopathy (R) Respiratory/Chest: No Respiratory Distress, Lungs Clear Cardiovascular: Regular Rate, Rhythm, No Edema, No Murmur GI/Abdominal: Normal Bowel Sounds, Soft, Non-Tender, Other (Morbid obesity) Extremities: Normal Inspection, No Pedal Edema Neurological: Alert, Oriented, Normal Cognition Course - Vital Signs Last Recorded V/S: Last Vital Signs Temp 36.7 C 06/27/17 19:40 Pulse 91 06/27/17 19:40 Resp 18 06/27/17 19:40 BP 145/88 H 06/27/17 19:40 Pulse Ox 95 06/27/17 19:40 - Orders/Labs/Meds Orders: Active Orders 24 hr Category Date Time Status EKG Documentation Completion [RC] STAT Care 06/27/17 19:59 Active Chest 1V Frontal [CR] Stat Exams 06/27/17 19:59 Taken Sodium Chloride 0.9% [Normal Saline] 1,000 ml Med 06/27/17 20:15 Active IV ASDIRECTED Medication Orders Sodium Chloride (Normal Saline) 1,000 mls @ 75 mls/hr IV ASDIRECTED BRYCE Last Admin: 06/27/17 20:14 Dose: 75 mls/hr Labs: Laboratory Tests 06/27/17 06/27/17 06/27/17 Range/Units 19:50 19:50 19:50 WBC 10.68 H (4.23-9.07) K/mm3 RBC 4.08 L (4.63-6.08) M/mm3 Hgb 12.7 L (13.7-17.5) gm/L Hct 38.4 L (40.1-51.0) % MCV 94.1 H (79.0-92.2) fl MCH 31.1 (25.7-32.2) pg MCHC 33.1 (32.2-35.5) g/dl RDW Std Deviation 45.6 H (35.1-43.9) fL Plt Count 301 (163-337) K/mm3 MPV 8.9 L (9.4-12.3) fl Neutrophils % (Manual) 56 (40-60) % Band Neutrophils % 0 (0-10) % Lymphocytes % (Manual) 41 H (20-40) % Atypical Lymphs % 0 % Monocytes % (Manual) 1 L (2-10) % Eosinophils % (Manual) 1 (0.8-7.0) % Basophils % (Manual) 1 (0.2-1.2) Platelet Estimate Adequate Plt Morphology Comment Normal RBC Morph Comment Normal PT 10.0 (8.0-13.0) SECONDS INR 0.92 APTT (22-36) SECONDS Sodium 139 (136-145) mEq/L Potassium 3.5 (3.5-5.1) mEq/L Chloride 106 (98-107) mEq/L Carbon Dioxide 23 (21-32) mEq/L Anion Gap 13.5 (5-15) BUN 12 (7-18) mg/dL Creatinine 1.4 H (0.7-1.3) mg/dL Est Cr Clr Drug Dosing 67.84 mL/min Estimated GFR (MDRD) 53 (>60) mL/min BUN/Creatinine Ratio 8.6 L (14-18) Glucose 154 H (74-106) mg/dL Calcium 8.5 (8.5-10.1) mg/dL Total Bilirubin 0.3 (0.2-1.0) mg/dL AST 18 (15-37) U/L ALT 26 (16-63) U/L Alkaline Phosphatase 85 (46-116) U/L Troponin I < 0.017 (0.00-0.056) ng/mL Total Protein 7.4 (6.4-8.2) g/dl Albumin 3.8 (3.4-5.0) g/dl Globulin 3.6 gm/dL Albumin/Globulin Ratio 1.1 (1-2) Lipase 154 (73-393) U/L 06/27/17 06/27/17 Range/Units 19:50 23:05 WBC (4.23-9.07) K/mm3 RBC (4.63-6.08) M/mm3 Hgb (13.7-17.5) gm/L Hct (40.1-51.0) % MCV (79.0-92.2) fl MCH (25.7-32.2) pg MCHC (32.2-35.5) g/dl RDW Std Deviation (35.1-43.9) fL Plt Count (163-337) K/mm3 MPV (9.4-12.3) fl Neutrophils % (Manual) (40-60) % Band Neutrophils % (0-10) % Lymphocytes % (Manual) (20-40) % Atypical Lymphs % % Monocytes % (Manual) (2-10) % Eosinophils % (Manual) (0.8-7.0) % Basophils % (Manual) (0.2-1.2) Platelet Estimate Plt Morphology Comment RBC Morph Comment PT (8.0-13.0) SECONDS INR APTT 27 (22-36) SECONDS Sodium (136-145) mEq/L Potassium (3.5-5.1) mEq/L Chloride (98-107) mEq/L Carbon Dioxide (21-32) mEq/L Anion Gap (5-15) BUN (7-18) mg/dL Creatinine (0.7-1.3) mg/dL Est Cr Clr Drug Dosing mL/min Estimated GFR (MDRD) (>60) mL/min BUN/Creatinine Ratio (14-18) Glucose (74-106) mg/dL Calcium (8.5-10.1) mg/dL Total Bilirubin (0.2-1.0) mg/dL AST (15-37) U/L ALT (16-63) U/L Alkaline Phosphatase (46-116) U/L Troponin I < 0.017 (0.00-0.056) ng/mL Total Protein (6.4-8.2) g/dl Albumin (3.4-5.0) g/dl Globulin gm/dL Albumin/Globulin Ratio (1-2) Lipase (73-393) U/L Meds: Medications Generic Name Dose Route Start Last Admin Trade Name Wu PRN Reason Stop Dose Admin Sodium Chloride 1,000 mls @ 75 mls/hr 06/27/17 20:15 06/27/17 20:14 Normal Saline IV 75 mls/hr ASDIRECTED BRYCE Administration Discontinued Medications Generic Name Dose Route Start Last Admin Trade Name Wu PRN Reason Stop Dose Admin Aspirin 324 mg 06/27/17 19:58 06/27/17 20:05 Aspirin PO 06/27/17 19:59 324 mg ONETIME ONE Administration Morphine Sulfate 2 mg 06/27/17 20:07 06/27/17 20:15 Morphine IVPUSH 06/27/17 20:08 2 mg ONETIME ONE Administration Morphine Sulfate 2 mg 06/27/17 20:57 06/27/17 21:03 Morphine IVPUSH 06/27/17 20:58 2 mg ONETIME ONE Administration Morphine Sulfate 2 mg 06/27/17 21:59 06/27/17 22:08 Morphine IVPUSH 06/27/17 22:00 2 mg ONETIME ONE Administration Nitroglycerin 0.4 mg 06/27/17 19:58 Nitrostat SL 06/27/17 20:09 Q5M PRN Chest Pain - Re-Assessments/Exams Free Text/Narrative Re-Assessment/Exam: 06/27/17 23:30 Second troponin pending. The patient's pain is down to about a 3 this is baseline for him he wants to go home. Awaiting second troponin. 06/28/17 00:10 Second troponin negative patient wants to go home his pain is controlled. He agrees to follow-up with his interventional sale consultant by the end of this week or first part of next week. Departure - Departure Time of Disposition: 00:10 Disposition: Home, Self-Care 01 Clinical Impression: Chest pain Forms: ED Department Discharge Additional Instructions: Return to the emergency room with any questions problems or worsening symptoms. Follow-up with your heart doctor by the end of this week or first part of next week. - My Orders Last 24 Hours: My Active Orders 06/27/17 19:59 EKG Documentation Completion [RC] STAT Chest 1V Frontal [CR] Stat 06/27/17 20:15 Sodium Chloride 0.9% [Normal Saline] 1,000 ml IV ASDIRECTED - Assessment/Plan Last 24 Hours: My Active Orders 06/27/17 19:59 EKG Documentation Completion [RC] STAT Chest 1V Frontal [CR] Stat 06/27/17 20:15 Sodium Chloride 0.9% [Normal Saline] 1,000 ml IV ASDIRECTED
[2017-06-27] MEDS ORDERED: Morphine 2 MG/ML Syringe IVPUSH ONE ×3 (20:07→21:59)
[2017-06-27] MEDS ORDERED: Sodium Chloride 0.9% 1,000 ML IV SCH (20:15)
[2017-06-28 01:57] VITALS: BP 130/87
--- NOTE | 2017-06-28 07:11 | CR ---
Chest: Portable view of the chest was obtained. Comparison: Previous chest x-ray of 12/09/16. Heart size and mediastinum are within normal limits. Previous sternotomy is noted. Lungs are clear with no acute infiltrates. Bony structures are grossly intact. Impression: 1. Nothing acute is appreciated on portable chest x-ray. Diagnostic code #2
== END 2017-06-28 00:32 | disposition home or self-care (01) ==
LOC: JD.ED 19:35
DX: R07.9 Chest pain, unspecified (principal); F17.210 Nicotine dependence, cigarettes, uncomplicated; I10 Essential (primary) hypertension; I25.10 Atherosclerotic heart disease of native coronary artery without angina pectoris; E78.00 Pure hypercholesterolemia, unspecified; J45.909 Unspecified asthma, uncomplicated; J44.9 Chronic obstructive pulmonary disease, unspecified; G47.30 Sleep apnea, unspecified; K21.9 Gastro-esophageal reflux disease without esophagitis; M19.90 Unspecified osteoarthritis, unspecified site; E11.9 Type 2 diabetes mellitus without complications; Z95.1 Presence of aortocoronary bypass graft; Z95.5 Presence of coronary angioplasty implant and graft; Z79.84 Long term (current) use of oral hypoglycemic drugs; Z79.899 Other long term (current) drug therapy; Z79.02 Long term (current) use of antithrombotics/antiplatelets
CPT/HCPCS: 36415; 71010; 80053; 83690; 84484; 85025; 85610; 85730; 93005; 96361; 96374; 96376; 99285; A9270; J2270; J7040; 99284

== ENCOUNTER 2017-08-04 11:47 | Emergency (ER) | payer MEDICARE, OTHER, MEDICAID ==
[2017-08-04] MEDS ORDERED: Sodium Chloride 0.9% 10 ML Syringe FLUSH PRN (12:21)
[2017-08-04] MEDS ORDERED: Ondansetron 4 MG/2 ML SDV IVPUSH ONE (12:21)
[2017-08-04] MEDS ORDERED: Ketorolac 15 MG/ML SDV IVPUSH ONE (12:23)
--- NOTE | 2017-08-04 12:59 | EDM.PDOC ---
ED HPI GENERAL MEDICAL PROBLEM - General Chief Complaint: Chest Pain Stated Complaint: CHEST PAIN Time Seen by Provider: 08/04/17 12:05 Source of Information: Reports: Patient History Limitations: Reports: No Limitations - History of Present Illness INITIAL COMMENTS - FREE TEXT/NARRATIVE: 56-year-old male presents for evaluation and treatment of chest pain. Patient reports that the chest pain began last night and was present again this morning when he woke up. He reports that the pain radiates into both sides of his neck, left arm and into his right shoulder blade. Patient has a past medical history of chest pain. He states that this is worse than normal. He has seen cardiology in the past was inserted to come to the ER if he develops worsening chest pain. Patient reports "a little " shortness of breath, nausea and fatigue. He also reports "a little "of dizziness. No vomiting or syncope. Patient is currently in a pain contract and is on Percocet and Lyrica for chronic chest pain. He also has nitroglycerin at home. He did not take any nitroglycerin prior to arrival in the ER. Past cardiac history includes a triple bypass in 9 stents. Currently sees cardiology and pain management for his chronic chest pain. Patient reports he took a Percocet last around on 7 AM. Patient was supposed to see and Pretty today for cholecystectomy consult and about constipation. Reports his last bowel movement was Monday. Previously has had an ultrasound and HIDA scan. Believes the plan is to take his gallbladder out. Patient has been seen in the ER numerous occasions for chest pain. On my previous encounters with him he has had a negative cardiac workup. Patient reports to me he saw his supervisor pleating last month. He had an angiogram done which shows "a clogged artery "states there is nothing more to be done. He is unsure how much percentages occluded. Next visit with cardiology as September 01. States the supervisor pleating did not feel any intervention was needed. No plan for stents or bypass currently. Patient is a diabetic. He is a current every day smoker. Reports he is cutting down on his smoking. mid sternum, right shoulder blade, jaw Pain Score (Numeric/FACES): 9 - Related Data Allergies Allergy/AdvReac Type Severity Reaction Status Date / Time No Known Allergies Allergy Verified 08/04/17 11:58 Home Meds: Home Meds Clopidogrel [Plavix] 75 mg PO DAILY 01/15/15 [History] Rosuvastatin [Crestor] 20 mg PO BEDTIME 01/15/15 [History] Metoprolol Tartrate 25 mg PO BID 04/20/16 [History] Pantoprazole [ProTONIX] 40 mg PO DAILY 08/15/16 [History] Amitriptyline [Elavil] 75 mg PO BEDTIME 09/10/16 [History] Aspirin 81 mg PO BID 09/10/16 [History] Fish Oil/[place]-3 Fatty Acids [Fish Oil 1,000 MG] 1,000 mg PO DAILY 03/28/17 [ History] Ipratropium/Albuterol Sulfate [Combivent Respimat Inhal [place]] 1 puff INH ASDIRECTED 03/28/17 [History] Isosorbide Mononitrate [Isosorbide Mononitrate ER] 60 mg PO DAILY 03/28/17 [ History] Lisinopril 10 mg PO DAILY 03/28/17 [History] Nitroglycerin [Nitrostat] 0.4 mg SL ASDIRECTED PRN 03/28/17 [History] Orphenadrine [Norflex] 100 mg PO ASDIRECTED PRN 03/28/17 [History] Ranolazine [Ranexa] 1,000 mg PO DAILY 03/28/17 [History] Umeclidinium Brm/Vilanterol Tr [Anoro Ellipta 62.5-25 Mcg INH] 1 puff INH DAILY 03/28/17 [History] metFORMIN [Glucophage XR] 500 mg PO DAILY 03/28/17 [History] Ondansetron [Zofran ODT] 4 mg PO Q6H 08/04/17 [History] Pregabalin [Lyrica] 50 mg PO BID 08/04/17 [History] oxyCODONE HCl/Acetaminophen [Oxycodone-Acetaminophen 10-300] 1 each PO QID 08/04 [History] Past Medical History HEENT History: Reports: Hard of Hearing, Impaired Vision, Other (See Below) Other HEENT History: hard of hearing Cardiovascular History: Reports: Bypass, CAD, High Cholesterol, Hypertension, Stents, Other (See Below) Other Cardiovascular History: Triple Bypass in November 2012, perpipheral vascular disease; 2 stents of Oct 2016: total of 9 stents. Respiratory History: Reports: Asthma, COPD, Sleep Apnea, SOB Gastrointestinal History: Reports: Colon Polyp, GERD, GI Bleed, Helicobacter Pylori, Inflammatory Bowel Disease, PUD, Other (See Below) Other Gastrointestinal History: tubular adenoma, constipation, PUD Genitourinary History: Reports: BPH, Prostate Disorder SOFTWARE SUPPORT SPECIALIST History: Reports: None Musculoskeletal History: Reports: Arthritis, Back Pain, Chronic, RA Other Musculoskeletal History: compression fracture, chronic pain, lumbar degenerative disc disease, polyarthraliga, sternum pain Neurological History: Reports: None Psychiatric History: Reports: None Endocrine/Metabolic History: Reports: Diabetes, Type II, Other (See Below) Other Endocrine/Metabolic History: hyperglycemia Hematologic History: Reports: None Immunologic History: Reports: None Oncologic (Cancer) History: Reports: None Dermatologic History: Reports: Other (See Below) Other Dermatologic History: sebaceous cyst - Past Surgical History Cardiovascular Surgical History: Reports: Coronary Artery Bypass, Coronary Artery Stent Musculoskeletal Surgical History: Reports: Other (See Below) Social & Family History - Family History Family Medical History: Noncontributory - Tobacco Use Smoking Status *Q: Current Every Day Smoker Years of Tobacco use: 46 Packs/Tins Daily: 0.5 Used Tobacco, but Quit: No - Caffeine Use Caffeine Use: Reports: Soda - Alcohol Use Days Per Week of Alcohol Use: 0 - Recreational Drug Use Recreational Drug Use: No - Living Situation & Occupation Living situation: Reports: Occupation: Unemployed ED ROS GENERAL - Review of Systems Review Of Systems: See Below Constitutional: Reports: Fatigue Respiratory: Reports: Shortness of Breath ("little bit") Cardiovascular: Reports: Chest Pain GI/Abdominal: Reports: Nausea. Denies: Abdominal Pain, Vomiting Neurological: Reports: Dizziness ('little bit"). Denies: Syncope ED EXAM, GENERAL - Physical Exam Exam: See Below Exam Limited By: No Limitations General Appearance: Alert, WD/WN, No Apparent Distress Nose: Normal Inspection Throat/Mouth: Normal Inspection, Normal Voice, No Airway Compromise Neck: Normal Inspection Respiratory/Chest: No Respiratory Distress, Lungs Clear, Normal Breath Sounds Cardiovascular: Normal Peripheral Pulses, Regular Rate, Rhythm, No Murmur, Other (scar to thechest from previous sternometry ) GI/Abdominal: Soft, Non-Tender Neurological: Alert, Oriented, Normal Cognition Psychiatric: Normal Affect, Normal Mood Skin Exam: Warm, Dry, Normal Color EKG INTERPRETATION EKG Date: 08/04/17 Time: 11:55 Rhythm: NSR Rate (Beats/Min): 76 [place]: Normal P-Wave: Present QRS: Normal ST-T: Normal QT: Normal EKG Interpretation Comments: NSR at 76 bpm. No acute changes. Reviewed by myself and Dr. Maldonado. Course - Vital Signs Last Recorded V/S: Last Vital Signs Temp 36.5 C 08/04/17 11:47 Pulse 70 08/04/17 14:02 Resp 12 08/04/17 14:02 BP 100/65 08/04/17 14:02 Pulse Ox 98 08/04/17 14:02 - Orders/Labs/Meds Orders: Active Orders 24 hr Category Date Time Status Cardiac Monitoring [RC] . DIRECTED Care 08/04/17 12:21 Active EKG Documentation Completion [RC] STAT Care 08/04/17 12:21 Active Peripheral IV Care [RC] . DIRECTED Care 08/04/17 12:21 Active Peripheral IV Insertion Adult [OM.PC] Routine Oth 08/04/17 12:19 Ordered Labs: Laboratory Tests 08/04/17 08/04/17 08/04/17 Range/Units 12:00 12:00 12:00 WBC 12.95 H (4.23-9.07) K/mm3 RBC 4.25 L (4.63-6.08) M/mm3 Hgb 13.1 L (13.7-17.5) gm/L Hct 40.2 (40.1-51.0) % MCV 94.6 H (79.0-92.2) fl MCH 30.8 (25.7-32.2) pg MCHC 32.6 (32.2-35.5) g/dl RDW Std Deviation 46.1 H (35.1-43.9) fL Plt Count 274 (163-337) K/mm3 MPV 9.0 L (9.4-12.3) fl Neut % (Auto) 78.0 H (34.0-67.9) % Lymph % (Auto) 14.8 L (21.8-53.1) % [place] % (Auto) 5.6 (5.3-12.2) % Eos % (Auto) 1.2 (0.8-7.0) Baso % (Auto) 0.1 (0.1-1.2) % Neut # (Auto) 10.09 H (1.78-5.38) K/mm3 Lymph # (Auto) 1.92 (1.32-3.57) K/mm3 [place] # (Auto) 0.73 (0.30-0.82) K/mm3 Eos # (Auto) 0.16 (0.04-0.54) K/mm3 Baso # (Auto) 0.01 (0.01-0.08) K/mm3 PT 10.0 (8.0-13.0) SECONDS INR 0.92 Sodium 137 (136-145) mEq/L Potassium 4.2 (3.5-5.1) mEq/L Chloride 104 (98-107) mEq/L Carbon Dioxide 24 (21-32) mEq/L Anion Gap 13.2 (5-15) BUN 14 (7-18) mg/dL Creatinine 1.1 (0.7-1.3) mg/dL Est Cr Clr Drug Dosing 86.76 mL/min Estimated GFR (MDRD) > 60 (>60) mL/min BUN/Creatinine Ratio 12.7 L (14-18) Glucose 143 H (74-106) mg/dL Calcium 8.5 (8.5-10.1) mg/dL Total Bilirubin 0.4 (0.2-1.0) mg/dL AST 13 L (15-37) U/L ALT 20 (16-63) U/L Alkaline Phosphatase 76 (46-116) U/L CK-MB (CK-2) 0.5 (0-3.6) ng/ml Troponin I < 0.017 (0.00-0.056) ng/mL Total Protein 6.9 (6.4-8.2) g/dl Albumin 3.5 (3.4-5.0) g/dl Globulin 3.4 gm/dL Albumin/Globulin Ratio 1.0 (1-2) Lipase 106 (73-393) U/L Meds: Medications Discontinued Medications Generic Name Dose Route Start Last Admin Trade Name Freq PRN Reason Stop Dose Admin Ketorolac Tromethamine 15 mg 08/04/17 12:23 08/04/17 12:41 Toradol IVPUSH 08/04/17 12:24 15 mg ONETIME ONE Administration Ondansetron HCl 4 mg 08/04/17 12:21 08/04/17 12:41 Zofran IVPUSH 08/04/17 12:22 4 mg ONETIME ONE Administration Sodium Chloride 10 ml 08/04/17 12:21 08/04/17 12:41 Saline Flush FLUSH 10 ml ASDIRECTED PRN Administration Keep Vein Open - Radiology Interpretation Free Text/Narrative:: chest [address] Sal[place]: Nothing acute is seen on portable chest xray - Re-Assessments/Exams Free Text/Narrative Re-Assessment/Exam: 08/04/17 13:40 Labs returned. I reviewed the labs, chest xray and ekg results with the patient. Does not appear to be cardiac in nature. Possibly is gallbladder. HIDA scan showed and EF of 44% and ultrasound showed minimal dilation to the ducts. Patient was given toradol for pain control due to him being in a pain contract for his chest pain, I felt it was inappropriate to give narcotics unless an acute event was occurring. The patient repeatedly asked for something more for pain. I advised him to take the medication he has at home for his pain. ' Discharge instructions as documented . Departure - Departure Time of Disposition: 13:45 Disposition: Home, Self-Care 01 Condition: Fair Clinical Impression: Atypical chest pain Instructions: Nonspecific Chest Pain Referrals: PCP,None [Primary Care Provider] - Forms: ED Department Discharge Additional Instructions: Continue with your current plan of care. Take your pain medicine and your nitroglycerin as needed. Follow up with your supervisor pleating and your GI specialist as planned. Please return to the ER if your symptoms change or worsen. - My Orders Last 24 Hours: My Active Orders 08/04/17 12:19 Peripheral IV Insertion Adult [OM.PC] Routine 08/04/17 12:21 Cardiac Monitoring [RC] . DIRECTED EKG Documentation Completion [RC] STAT Peripheral IV Care [RC] . DIRECTED - Assessment/Plan Last 24 Hours: My Active Orders 08/04/17 12:19 Peripheral IV Insertion Adult [OM.PC] Routine 08/04/17 12:21 Cardiac Monitoring [RC] . DIRECTED EKG Documentation Completion [RC] STAT Peripheral IV Care [RC] . DIRECTED
[2017-08-04 14:05] VITALS: BP 100/65
--- NOTE | 2017-08-04 15:03 | CR ---
Chest: Portable view of the chest was obtained. Comparison: Previous chest x-ray of 06/27/17. Heart size at the upper limits of normal. Upper mediastinum is normal. Previous sternotomy is noted. Lungs are clear with no acute infiltrates. Bony structures are grossly intact. Impression: 1. Nothing acute is seen on portable chest x-ray. Diagnostic code #2
== END 2017-08-04 14:05 | disposition home or self-care (01) ==
LOC: JD.ED 11:47
DX: R07.89 Other chest pain (principal); F17.210 Nicotine dependence, cigarettes, uncomplicated; I25.10 Atherosclerotic heart disease of native coronary artery without angina pectoris; E78.00 Pure hypercholesterolemia, unspecified; I10 Essential (primary) hypertension; J44.9 Chronic obstructive pulmonary disease, unspecified; K21.9 Gastro-esophageal reflux disease without esophagitis; E11.65 Type 2 diabetes mellitus with hyperglycemia; Z79.82 Long term (current) use of aspirin; Z79.84 Long term (current) use of oral hypoglycemic drugs; Z79.899 Other long term (current) drug therapy
CPT/HCPCS: 36415; 71010; 80053; 82553; 83690; 84484; 85025; 85610; 93005; 96374; 96375; 99285; J1885; J2405; J7050

== ENCOUNTER 2017-11-17 10:06 | Emergency (ER) | payer MEDICARE, OTHER, MEDICAID ==
[2017-11-17 10:18] VITALS: BP 133/91
[2017-11-17] MEDS ORDERED: HYDROmorphone 1 MG/ML Syringe IM ONE ×2 (10:40→11:51)
--- NOTE | 2017-11-17 11:08 | EDM.PDOC ---
ED HPI GENERAL MEDICAL PROBLEM - General Chief Complaint: Back Pain or Injury Stated Complaint: FALL/BACK PAIN Time Seen by Provider: 11/17/17 10:22 Source of Information: Reports: Patient, Family History Limitations: Reports: No Limitations - History of Present Illness INITIAL COMMENTS - FREE TEXT/NARRATIVE: The patient slipped on his handicap ramp at home and hit his head and hurt his c -spine, thoracic and lumbar spine. He may have had a LOC. He came to [facility] to see his doctor Dr Espino for an appointment. Dr Espino told the patient to come here to get evaluated. He has a headache, neck pain, and back pain. He has no chest pain, shortness of breath, abdominal pain, or numbness. He has generalized weakness that is not localized to one side. Onset: Sudden Duration: Hour(s): Location: Reports: Head, Neck, Back Quality: Reports: Sharp Severity: Severe Improves with: Reports: Immobilization Worsens with: Reports: Movement Context: Reports: Activity (He fell going down his handicapped ramp) Associated Symptoms: Reports: Headaches. Denies: Chest Pain, Cough, Fever/ Chills, Nausea/Vomiting Back Pain Score (Numeric/FACES): 10 - Related Data Allergies Allergy/AdvReac Type Severity Reaction Status Date / Time No Known Allergies Allergy Verified 11/17/17 10:18 Home Meds: Home Meds Clopidogrel [Plavix] 75 mg PO DAILY 01/15/15 [History] Rosuvastatin [Crestor] 20 mg PO BEDTIME 01/15/15 [History] Metoprolol Tartrate 25 mg PO BID 04/20/16 [History] Pantoprazole [ProTONIX] 40 mg PO DAILY 08/15/16 [History] Amitriptyline [Elavil] 75 mg PO BEDTIME 09/10/16 [History] Aspirin 81 mg PO BID 09/10/16 [History] Fish Oil/[place]-3 Fatty Acids [Fish Oil 1,000 MG] 1,000 mg PO DAILY 03/28/17 [ History] Ipratropium/Albuterol Sulfate [Combivent Respimat Inhal [place]] 1 puff INH ASDIRECTED 03/28/17 [History] Isosorbide Mononitrate [Isosorbide Mononitrate ER] 60 mg PO DAILY 03/28/17 [ History] Lisinopril 10 mg PO DAILY 03/28/17 [History] Nitroglycerin [Nitrostat] 0.4 mg SL ASDIRECTED PRN 03/28/17 [History] Orphenadrine [Norflex] 100 mg PO ASDIRECTED PRN 03/28/17 [History] Ranolazine [Ranexa] 1,000 mg PO BID 03/28/17 [History] Umeclidinium Brm/Vilanterol Tr [Anoro Ellipta 62.5-25 Mcg INH] 1 puff INH DAILY PRN 03/28/17 [History] metFORMIN [Glucophage XR] 500 mg PO DAILY 03/28/17 [History] Ondansetron [Zofran ODT] 4 mg PO Q6H 08/04/17 [History] Pregabalin [Lyrica] 75 mg PO BID 08/04/17 [History] oxyCODONE HCl/Acetaminophen [Oxycodone-Acetaminophen 10-300] 1 each PO QID 08/04 [History] Past Medical History HEENT History: Reports: Hard of Hearing, Impaired Vision, Other (See Below) Other HEENT History: hard of hearing Cardiovascular History: Reports: Bypass, CAD, High Cholesterol, Hypertension, Stents, Other (See Below) Other Cardiovascular History: Triple Bypass in November 2012, perpipheral vascular disease; 2 stents of Oct 2016: total of 9 stents. 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: None Musculoskeletal History: Reports: Arthritis, Back Pain, Chronic, RA Other Musculoskeletal History: compression fracture, chronic pain, lumbar degenerative disc disease, polyarthraliga, sternum pain Neurological History: Reports: None Psychiatric History: Reports: None Endocrine/Metabolic History: Reports: Diabetes, Type II, Other (See Below) Other Endocrine/Metabolic History: hyperglycemia Hematologic History: Reports: None Immunologic History: Reports: None Oncologic (Cancer) History: Reports: None Dermatologic History: Reports: Other (See Below) Other Dermatologic History: sebaceous cyst - Past Surgical History Cardiovascular Surgical History: Reports: Coronary Artery Bypass, Coronary Artery Stent Musculoskeletal Surgical History: Reports: Other (See Below) Social & Family History - Family History Family Medical History: Noncontributory - Tobacco Use Smoking Status *Q: Current Every Day Smoker Years of Tobacco use: 40 Packs/Tins Daily: 0.5 Used Tobacco, but Quit: No - Caffeine Use Caffeine Use: Reports: Coffee, Soda - Alcohol Use Days Per Week of Alcohol Use: 0 - Recreational Drug Use Recreational Drug Use: No - Living Situation & Occupation Living situation: Reports: Occupation: Unemployed ED ROS GENERAL - Review of Systems Review Of Systems: See Below Constitutional: Reports: No Symptoms HEENT: Reports: No Symptoms Respiratory: Reports: No Symptoms Cardiovascular: Reports: No Symptoms Endocrine: Reports: No Symptoms GI/Abdominal: Reports: No Symptoms : Reports: No Symptoms Musculoskeletal: Reports: Neck Pain, Back Pain ED EXAM,LOWER BACK PAIN/INJURY - Physical Exam Exam: See Below Exam Limited By: No Limitations General Appearance: Alert, No Apparent Distress Ears: Normal External Exam Nose: Normal Inspection Head: Normocephalic, Other (Pain upon palpation to the occipital region) Neck: Tender Midline (mid cervical spine) Respiratory/Chest: No Respiratory Distress, Lungs Clear, Normal Breath Sounds Cardiovascular: Regular Rate, Rhythm, No Edema, No Murmur GI/Abdominal: Soft, Non-Tender, No Organomegaly, No Mass Back Exam: Vertebral Tenderness (Thoracic and lumbar spine) Extremities: Normal Inspection Neurological: Alert, No Motor/Sensory Deficits, Oriented x 3 Course - Vital Signs Last Recorded V/S: Last Vital Signs Temp 97.4 F 11/17/17 10:15 Pulse 50 L 11/17/17 10:15 Resp 13 11/17/17 10:15 BP 133/91 H 11/17/17 10:15 Pulse Ox 99 11/17/17 10:15 - Orders/Labs/Meds Orders: Active Orders 24 hr Category Date Time Status Lumbar Spine 2 or 3V [CR] Stat Exams 11/17/17 10:35 Taken Thoracic Spine 2V [CR] Stat Exams 11/17/17 10:35 Taken HYDROmorphone [Dilaudid] Med 11/17/17 11:51 Once 1 mg IM ONETIME ONE Meds: Medications Discontinued Medications Generic Name Dose Route Start Last Admin Trade Name Elvinq PRN Reason Stop Dose Admin Hydromorphone HCl 1 mg 11/17/17 10:40 11/17/17 10:54 Dilaudid IM 11/17/17 10:41 1 mg ONETIME ONE Administration - Re-Assessments/Exams Free Text/Narrative Re-Assessment/Exam: 11/17/17 11:[address] of his head and cervical spine. I also ordered an x-ray of his thoracic and lumbar spine. His CTs show nothing acute his lumbar and thoracic spine show arthritis and there is some decreased vertebral height. Nothing appears acute. I gave him a couple doses of dilaudid. He has enough percocet at home. He sees [facility]. Departure - Departure Time of Disposition: 12:00 Disposition: Home, Self-Care 01 Condition: Good Clinical Impression: Acute exacerbation of chronic low back pain Fall Qualifiers: Encounter type: initial encounter Qualified Code(s): W19.XXXA - Unspecified fall, initial encounter Contusion of scalp Qualifiers: Encounter type: initial encounter Qualified Code(s): S00.03XA - Contusion of scalp, initial encounter Cervical strain Qualifiers: Encounter type: initial encounter Qualified Code(s): S16.1XXA - Strain of muscle, fascia and tendon at neck level, initial encounter Thoracic back pain Qualifiers: Chronicity: acute Back pain laterality: bilateral Qualified Code(s): M54.6 - Pain in thoracic spine - Discharge Information Referrals: Danny Espino MD [Primary Care Provider] - Forms: ED Department Discharge Additional Instructions: Take your medication as prescribed. Ice the areas that hurt. Follow up with Dr Espino. - My Orders Last 24 Hours: My Active Orders 11/17/17 10:35 Lumbar Spine 2 or 3V [CR] Stat Thoracic Spine 2V [CR] Stat 11/17/17 11:51 HYDROmorphone [Dilaudid] 1 mg IM ONETIME ONE - Assessment/Plan Last 24 Hours: My Active Orders 11/17/17 10:35 Lumbar Spine 2 or 3V [CR] Stat Thoracic Spine 2V [CR] Stat 11/17/17 11:51 HYDROmorphone [Dilaudid] 1 mg IM ONETIME ONE
--- NOTE | 2017-11-17 11:45 | CT ---
CT cervical spine Technique: Multiple axial sections were obtained from above C1 inferiorly to the top of T3. Reconstructed sagittal and coronal images were reviewed. Comparison: No prior cervical spine imaging. Findings: Degenerative spurring is between C1 and the dens of C2. Prominent osteophytes are seen anteriorly at C2-C3 and C3-C4. Lesser osteophytes are seen at C6-C7 and C7-T1 as well as calcification anterior to the discs at C5-C6 and C6-C7. Mild degenerative change is scattered throughout the apophyseal joints. Minimal degenerative spurring is scattered within the uncovertebral joints. Mild scoliosis is seen. Posterior skull base is intact. Vertebral bodies and posterior arches are intact. No fracture is seen. No bony central or bony neural foraminal stenosis is seen. No abnormal subluxation is seen on the reconstructed sagittal images. Impression: 1. Multilevel degenerative change as noted above. 2. No acute fracture or abnormal subluxation is seen. Diagnostic code #2
--- NOTE | 2017-11-17 11:46 | CT ---
Head CT Technique: Multiple axial sections through the brain were obtained. Intravenous contrast was not utilized. Comparison: No prior intracranial imaging. Findings: Ventricles along with basal cisterns and sulci over the convexities are within normal limits for the patient's age. No abnormal parenchymal densities are seen. No evidence of intracranial hemorrhage. No midline shift or mass effect is seen. Bone window settings were reviewed which shows minimal mucosal thickening within the ethmoid and maxillary sinuses which is incidental. No acute calvarial abnormality is identified. Impression: 1. Sinus findings which are incidental. 2. No acute intracranial abnormality is seen. No skull fracture is identified. Diagnostic code #2
--- NOTE | 2017-11-17 12:46 | CR ---
Lumbar spine: AP, lateral and coned-down lateral views centered to the lumbosacral junction were obtained. Comparison: Previous lumbar spine exam of 05/03/16. Moderate disc space narrowing is seen at L5-S1. Compression deformities are seen within the lower thoracic spine and at L1. These are stable. Posterior disc space narrowing is noted at L1-L2. Scattered endplate osteophytes are seen. Pedicles are intact. Transverse and spinous processes are intact. No abnormal subluxation is seen. Impression: 1. Compression deformities within the lower thoracic spine and at L1. These findings are stable from previous exam. 2. Degenerative change as noted above which is also stable. 3. Nothing acute is seen. Diagnostic code #2
--- NOTE | 2017-11-17 13:29 | CR ---
Thoracic spine: AP and lateral views of the thoracic spine were obtained. Comparison: Prior thoracic spine exam of 05/03/16. Multiple compression deformities with anterior wedging is seen within the lower thoracic spine. These findings are stable from prior exam. Scattered disc space narrowing throughout the thoracic spine is seen as well as anterior endplate osteophytes. No new compression deformity is seen. No abnormal subluxation or discrete fracture is seen. Impression: 1. Stable compression deformities. Mild degenerative change. 2. Nothing acute is appreciated on two-view thoracic spine study. Diagnostic code #2
== END 2017-11-17 12:22 | disposition home or self-care (01) ==
LOC: JD.ED 10:06
DX: S16.1XXA Strain of muscle, fascia and tendon at neck level, initial encounter (principal); S00.03XA Contusion of scalp, initial encounter; M54.5 Low back pain; M54.6 Pain in thoracic spine; F17.210 Nicotine dependence, cigarettes, uncomplicated; I25.10 Atherosclerotic heart disease of native coronary artery without angina pectoris; I10 Essential (primary) hypertension; Z95.5 Presence of coronary angioplasty implant and graft; J44.9 Chronic obstructive pulmonary disease, unspecified; Z79.82 Long term (current) use of aspirin; E11.9 Type 2 diabetes mellitus without complications; W01.0XXA Fall on same level from slipping, tripping and stumbling without subsequent striking against object, initial encounter; Z79.899 Other long term (current) drug therapy; Z95.1 Presence of aortocoronary bypass graft
CPT/HCPCS: 70450; 72070; 72100; 72125; 96372; 99284; J1170; 99283

== ENCOUNTER 2017-11-30 12:44 | Emergency (ER) | payer MEDICARE, OTHER, MEDICAID ==
--- NOTE | 2017-11-30 12:50 | EDM.PDOC ---
ED HPI GENERAL MEDICAL PROBLEM - General Chief Complaint: Chest Pain Stated Complaint: CHEST PAIN Time Seen by Provider: 11/30/17 12:50 - History of Present Illness INITIAL COMMENTS - FREE TEXT/NARRATIVE: 57-year-old male presents emergency room with abdominal pain. This pain has been getting worse over the last couple weeks. Patient states she' s had severe constipation hasn't been able to have movement 2 weeks. The pain is progressively getting worse over the last 4-5 days the pain started a radiated into his chest. Patient has a history of coronary artery disease he's had open-heart surgery with resultant three-vessel bypass and multiple stents after this. Patient is not having chest pressure or typical heart type pain. Patient denies any nausea or vomiting. The patient is on chronic opioid therapy. Chest Pain Score (Numeric/FACES): 10 - Related Data Allergies Allergy/AdvReac Type Severity Reaction Status Date / Time No Known Allergies Allergy Verified 11/30/17 12:48 Home Meds: Home Meds Clopidogrel [Plavix] 75 mg PO DAILY 01/15/15 [History] Rosuvastatin [Crestor] 20 mg PO BEDTIME 01/15/15 [History] Metoprolol Tartrate 25 mg PO BID 04/20/16 [History] Pantoprazole [ProTONIX] 40 mg PO DAILY 08/15/16 [History] Amitriptyline [Elavil] 75 mg PO BEDTIME 09/10/16 [History] Aspirin 81 mg PO BID 09/10/16 [History] Fish Oil/[place]-3 Fatty Acids [Fish Oil 1,000 MG] 1,000 mg PO DAILY 03/28/17 [ History] Ipratropium/Albuterol Sulfate [Combivent Respimat Inhal [place]] 1 puff INH ASDIRECTED 03/28/17 [History] Isosorbide Mononitrate [Isosorbide Mononitrate ER] 60 mg PO DAILY 03/28/17 [ History] Lisinopril 10 mg PO DAILY 03/28/17 [History] Nitroglycerin [Nitrostat] 0.4 mg SL ASDIRECTED PRN 03/28/17 [History] Orphenadrine [Norflex] 100 mg PO ASDIRECTED PRN 03/28/17 [History] Ranolazine [Ranexa] 1,000 mg PO BID 03/28/17 [History] Umeclidinium Brm/Vilanterol Tr [Anoro Ellipta 62.5-25 Mcg INH] 1 puff INH DAILY PRN 03/28/17 [History] metFORMIN [Glucophage XR] 500 mg PO DAILY 03/28/17 [History] Ondansetron [Zofran ODT] 4 mg PO Q6H 08/04/17 [History] Pregabalin [Lyrica] 75 mg PO BID 08/04/17 [History] oxyCODONE HCl/Acetaminophen [Oxycodone-Acetaminophen 10-300] 1 each PO QID 08/04 [History] Lactulose 20 gm PO Q12H #1000 ml 11/30/17 [Rx] Past Medical History HEENT History: Reports: Hard of Hearing, Impaired Vision, Other (See Below) Other HEENT History: hard of hearing Cardiovascular History: Reports: Bypass, CAD, High Cholesterol, Hypertension, Stents, Other (See Below) Other Cardiovascular History: Triple Bypass in November 2012, perpipheral vascular disease; 2 stents of Oct 2016: total of 9 stents. Respiratory History: Reports: Asthma, COPD, Sleep Apnea, SOB Gastrointestinal History: Reports: Colon Polyp, GERD, GI Bleed, Helicobacter Pylori, Inflammatory Bowel Disease, PUD, Other (See Below) Other Gastrointestinal History: tubular adenoma, constipation, PUD Genitourinary History: Reports: BPH, Prostate Disorder CATALOGUE LIBRARIAN History: Reports: None Musculoskeletal History: Reports: Arthritis, Back Pain, Chronic, RA Other Musculoskeletal History: compression fracture, chronic pain, lumbar degenerative disc disease, polyarthraliga, sternum pain Neurological History: Reports: None Psychiatric History: Reports: None Endocrine/Metabolic History: Reports: Diabetes, Type II, Other (See Below) Other Endocrine/Metabolic History: hyperglycemia Hematologic History: Reports: None Immunologic History: Reports: None Oncologic (Cancer) History: Reports: None Dermatologic History: Reports: Other (See Below) Other Dermatologic History: sebaceous cyst - Past Surgical History Cardiovascular Surgical History: Reports: Coronary Artery Bypass, Coronary Artery Stent Musculoskeletal Surgical History: Reports: Other (See Below) Social & Family History - Family History Family Medical History: Noncontributory - Tobacco Use Smoking Status *Q: Current Every Day Smoker Years of Tobacco use: 40 Packs/Tins Daily: 0.5 Used Tobacco, but Quit: No - Caffeine Use Caffeine Use: Reports: Coffee, Soda - Alcohol Use Days Per Week of Alcohol Use: 0 - Recreational Drug Use Recreational Drug Use: No - Living Situation & Occupation Living situation: Reports: Occupation: Unemployed ED ROS GENERAL - Review of Systems Review Of Systems: See Below Constitutional: Denies: Fever, Chills HEENT: Reports: No Symptoms Respiratory: Reports: No Symptoms Cardiovascular: Reports: Chest Pain. Denies: Dyspnea on Exertion, Edema GI/Abdominal: Reports: Abdominal Pain, Constipation. Denies: Nausea, Vomiting : Reports: No Symptoms Musculoskeletal: Reports: No Symptoms Neurological: Reports: No Symptoms Psychiatric: Reports: No Symptoms Hematologic/Lymphatic: Reports: No Symptoms Immunologic: Reports: No Symptoms ED EXAM, GENERAL - Physical Exam Exam: See Below Exam Limited By: No Limitations General Appearance: Alert, No Apparent Distress Head: Atraumatic, Normocephalic Neck: Normal Inspection, Supple, Non-Tender, Full Range of Motion Respiratory/Chest: No Respiratory Distress, Lungs Clear, Normal Breath Sounds Cardiovascular: Regular Rate, Rhythm, No Edema, No Murmur GI/Abdominal: Normal Bowel Sounds, Other (Diffuse mild discomfort with palpation ). No: Guarding, Rigid, Rebound Back Exam: Normal Inspection. No: CVA Tenderness (L), CVA Tenderness (R) Extremities: Normal Inspection, No Pedal Edema Psychiatric: Normal Affect, Normal Mood Course - Vital Signs Last Recorded V/S: Last Vital Signs Temp 35.8 C 11/30/17 12:48 Pulse 85 11/30/17 12:48 Resp 20 11/30/17 12:48 BP 128/82 11/30/17 12:48 Pulse Ox 96 11/30/17 12:48 - Orders/Labs/Meds Labs: Laboratory Tests 11/30/17 11/30/17 11/30/17 Range/Units 12:50 12:50 12:50 WBC 12.79 H (4.23-9.07) K/mm3 RBC 4.41 L (4.63-6.08) M/mm3 Hgb 13.8 (13.7-17.5) gm/L Hct 41.8 (40.1-51.0) % MCV 94.8 H (79.0-92.2) fl MCH 31.3 (25.7-32.2) pg MCHC 33.0 (32.2-35.5) g/dl RDW Std Deviation 48.3 H (35.1-43.9) fL Plt Count 341 H (163-337) K/mm3 MPV 8.9 L (9.4-12.3) fl Neutrophils % (Manual) 66 H (40-60) % Band Neutrophils % 1 (0-10) % Lymphocytes % (Manual) 29 (20-40) % Atypical Lymphs % 0 % Monocytes % (Manual) 3 (2-10) % Eosinophils % (Manual) 1 (0.8-7.0) % Basophils % (Manual) 0 L (0.2-1.2) Platelet Estimate Adequate RBC Morph Comment Normal PT 9.8 (8.0-13.0) SECONDS INR 0.90 APTT 21 L (22-36) SECONDS Sodium 136 (136-145) mEq/L Potassium 4.3 (3.5-5.1) mEq/L Chloride 103 (98-107) mEq/L Carbon Dioxide 24 (21-32) mEq/L Anion Gap 13.3 (5-15) BUN 16 (7-18) mg/dL Creatinine 1.2 (0.7-1.3) mg/dL Est Cr Clr Drug Dosing 78.61 mL/min Estimated GFR (MDRD) > 60 (>60) mL/min BUN/Creatinine Ratio 13.3 L (14-18) Glucose 116 H (74-106) mg/dL Calcium 8.4 L (8.5-10.1) mg/dL Total Bilirubin 0.3 (0.2-1.0) mg/dL AST 17 (15-37) U/L ALT 20 (16-63) U/L Alkaline Phosphatase 119 H (46-116) U/L Troponin I < 0.017 (0.00-0.056) ng/mL Total Protein 7.4 (6.4-8.2) g/dl Albumin 3.6 (3.4-5.0) g/dl Globulin 3.8 gm/dL Albumin/Globulin Ratio 1.0 (1-2) Lipase 82 (73-393) U/L Meds: Medications Discontinued Medications Generic Name Dose Route Start Last Admin Trade Name Freq PRN Reason Stop Dose Admin Sodium Chloride 500 mls @ 999 mls/hr 11/30/17 13:17 11/30/17 13:23 Normal Saline IV 11/30/17 13:47 999 mls/hr .BOLUS ONE Administration Sodium Chloride 100 mls @ 80 mls/hr 11/30/17 13:30 11/30/17 14:21 Normal Saline IV 80 mls/hr ASDIRECTED BRYCE Administration Iopamidol 100 ml 11/30/17 13:20 11/30/17 14:21 [id number] (76%) IVPUSH 11/30/17 13:21 100 ml ONETIME ONE Administration Oxycodone/Acetaminophen 2 tab 11/30/17 15:50 11/30/17 16:10 Percocet 325-5 Mg PO 11/30/17 15:51 2 tab ONETIME ONE Administration Sodium Chloride 10 ml 11/30/17 13:20 11/30/17 14:21 Saline Flush FLUSH 10 ml ONETIME PRN Administration IV FLUSH - Re-Assessments/Exams Free Text/Narrative Re-Assessment/Exam: 12/01/17 07:39 Patient had an EKG done this did not show any changes compared to priors. His pain was somewhat atypical for his cardiac presentations in the past. Because of this constipation attention was focused on this also with him having multiple vascular issues it was considered that perhaps he was having some ischemic bowel/mesentery discomfort. Laboratory evaluation was nondiagnostic troponin negative CT was obtained of the chest abdomen pelvis with IV contrast showed good flow mesenteric arteries showed pretty full stool concentration. Patient had some a lengthy workup did discuss checking a second troponin on him and he was ready to go home at that point. Departure - Departure Time of Disposition: 15:45 Disposition: Home, Self-Care 01 Clinical Impression: Abdominal pain of unknown cause, Constipation Prescriptions: Lactulose 20 gm PO Q12H #1000 ml Instructions: Constipation, Adult Referrals: Danny Espino MD [Primary Care Provider] - Forms: ED Department Discharge Additional Instructions: Return to the emergency room with any questions problems worsening symptoms. Go to the pharmacy and get your lactulose filled take 2 tablespoons twice daily. When you're having reasonable BMs decrease to once daily. 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 Continue and resume your normal medications.
[2017-11-30 12:52] VITALS: BP 128/82
[2017-11-30] MEDS ORDERED: Sodium Chloride 0.9% 500 ML IV ONE (13:17)
[2017-11-30] MEDS ORDERED: Iopamidol 755 Mg/ML 100 ML Bottle IVPUSH ONE (13:20)
[2017-11-30] MEDS ORDERED: Sodium Chloride 0.9% 10 ML Syringe FLUSH PRN (13:20)
[2017-11-30] MEDS ORDERED: Sodium Chloride 0.9% 100 ML IV SCH (13:30)
--- NOTE | 2017-11-30 15:33 | CT ---
CT chest Technique: Multiple sections through the chest were obtained. Intravenous contrast was utilized. Comparison: No prior chest CT. Findings: Aorta shows no dissection or other aneurysm. Sternotomy is noted. No findings of pulmonary embolism are seen. Mediastinum and hilar regions show no adenopathy or mass. No axillary adenopathy is seen. Lungs are clear with no acute pulmonary densities. No pneumothorax is seen. No pleural effusion is seen. Slight extrapleural fat is seen posteriorly within both lung bases as an incidental note. Bone window setting show scattered degenerative endplate spurring within the spine. No acute bony abnormality is seen. Impression: 1. No findings of aortic aneurysm or aortic dissection. 2. Other incidental findings as noted above. Nothing acute is seen. Diagnostic code #2 CT abdomen and pelvis Technique: Multiple axial sections were obtained from above the dome of the diaphragm inferiorly through the pubic symphysis. Intravenous contrast was utilized. No oral contrast has been given. Portal phase imaging also obtained through the abdomen and pelvis. Findings: Aorta shows atherosclerotic change without aneurysmal dilatation. Single renal arteries are seen which appear to be patent. Celiac artery appears patent. Superior mesenteric artery is patent. Inferior mesenteric artery appears to be patent. Mild atherosclerotic change continues into the iliac vessels. No focal stenosis is seen. No dissection is seen. Liver shows no focal parenchymal abnormality. Spleen appears within normal limits. Adrenal glands show no nodule. Kidneys show symmetric contrast enhancement without hydronephrosis or mass. Pancreas is within normal limits. Gallbladder contains no calcified gallstones. No retroperitoneal adenopathy or mesenteric abnormalities are seen. No pelvic mass or adenopathy is seen. Appendix is felt to be visualized and appears within normal limits. No free fluid or inflammatory change is seen. Scattered degenerative change is seen within the spine. Slight increased stool is noted throughout the colon. Slight diverticuli are seen within the descending colon. No findings of diverticulitis are seen. Impression: 1. No findings of aortic aneurysm or dissection. Major branch vessels of the aorta aorta appear patent. 2. Mild increased stool within the colon and other incidental findings. No acute abnormality is identified on CT study of the abdomen and pelvis. Diagnostic code #2
[2017-11-30] MEDS ORDERED: Acetaminophen/oxyCODONE 325-5 MG Tab PO ONE (15:50)
== END 2017-11-30 16:38 | disposition home or self-care (01) ==
LOC: JD.ED 12:44
DX: K59.00 Constipation, unspecified (principal); F17.210 Nicotine dependence, cigarettes, uncomplicated; I10 Essential (primary) hypertension; J44.9 Chronic obstructive pulmonary disease, unspecified; K21.9 Gastro-esophageal reflux disease without esophagitis; E11.9 Type 2 diabetes mellitus without complications; Z95.1 Presence of aortocoronary bypass graft; Z95.5 Presence of coronary angioplasty implant and graft; Z79.84 Long term (current) use of oral hypoglycemic drugs; Z79.02 Long term (current) use of antithrombotics/antiplatelets; Z79.82 Long term (current) use of aspirin; Z79.899 Other long term (current) drug therapy
CPT/HCPCS: 36415; 71260; 74177; 80053; 83690; 84484; 85025; 85610; 85730; 93005; 96360; 99285; A9270; J7030; J7040; J7050; Q9967; 93010; 99283-25

== ENCOUNTER 2018-01-04 10:57 | Emergency (ER) | payer MEDICARE, OTHER, MEDICAID ==
[2018-01-04 11:13] VITALS: BP 100/79
--- NOTE | 2018-01-04 11:34 | EDM.PDOC ---
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 Patient reports that the chest pain started around 3 AM this morning. He states that it has been intermittent. Currently rates the pain as a 7 out of 10. Reports it was much worse this morning. Patient reports he has chronic sternal pain. States this does not this does not feel similar. He is a type II diabetic. Reports significant cardiac history including triple bypass and several coronary artery stents. He sees cardiology in [place]. Last visit was last month. He was instructed to follow-up in 6 months. He does have a sublingual nitroglycerin. He did not take any today as he is concerned about his blood pressure. Patient also complains of abdominal pain. Reports that the abdominal pain is located in the left flank and left lower quadrant. He reports that this started last night. The abdominal pain became more severe last night. He reports over the last 5 days he has had diarrhea. Reports about 3-4 episodes of diarrhea per day. No melena or hematochezia. Patient reports associated symptoms of shortness of breath. He reports chills with this he has these all the time. No fevers, nausea or vomiting. Patient reports his had an appointment today. He states he tried to get into his primary care provider but he was out of town and therefore he decided to present to the ER. Location: Reports: Chest, Abdomen Treatments LEAD CONSULTANT: Reports: Other (see below) Abdomen Pain Score (Numeric/FACES): 10 - Related Data Allergies Allergy/AdvReac Type Severity Reaction Status Date / Time No Known Allergies Allergy Verified 11/30/17 12:48 Home Meds: Home Meds Clopidogrel [Plavix] 75 mg PO DAILY 01/15/15 [History] Rosuvastatin [Crestor] 20 mg PO BEDTIME 01/15/15 [History] Metoprolol Tartrate 25 mg PO BID 04/20/16 [History] Pantoprazole [ProTONIX] 40 mg PO DAILY 09/19/16 [History] Amitriptyline [Elavil] 75 mg PO BEDTIME 09/10/16 [History] Aspirin 81 mg PO BID 09/10/16 [History] Fish Oil/[place]-3 Fatty Acids [Fish Oil 1,000 MG] 1,000 mg PO DAILY 03/28/17 [ History] Ipratropium/Albuterol Sulfate [Combivent Respimat Inhal [place]] 1 puff INH ASDIRECTED 03/28/17 [History] Isosorbide Mononitrate [Isosorbide Mononitrate ER] 60 mg PO DAILY 03/28/17 [ History] Lisinopril 10 mg PO DAILY 03/28/17 [History] Nitroglycerin [Nitrostat] 0.4 mg SL ASDIRECTED PRN 03/28/17 [History] Orphenadrine [Norflex] 100 mg PO ASDIRECTED PRN 03/28/17 [History] Ranolazine [Ranexa] 1,000 mg PO BID 03/28/17 [History] Umeclidinium Brm/Vilanterol Tr [Anoro Ellipta 62.5-25 Mcg INH] 1 puff INH DAILY PRN 03/28/17 [History] metFORMIN [Glucophage XR] 500 mg PO DAILY 03/28/17 [History] Ondansetron [Zofran ODT] 4 mg PO Q6H 08/04/17 [History] Pregabalin [Lyrica] 75 mg PO BID 08/04/17 [History] oxyCODONE HCl/Acetaminophen [Oxycodone-Acetaminophen 10-300] 1 each PO QID 08/04 [History] Lactulose 20 gm PO Q12H #1000 ml 11/30/17 [Rx] Diclofenac Sodium [Voltaren] 1 applic TOP TID PRN 01/04/18 [History] Past Medical History HEENT History: Reports: Hard of Hearing, Impaired Vision, Other (See Below) Other HEENT History: hard of hearing Cardiovascular History: Reports: Bypass, CAD, High Cholesterol, Hypertension, Stents, Other (See Below) Other Cardiovascular History: Triple Bypass in November 2012, perpipheral vascular disease; 2 stents of Oct 2016: total of 9 stents. 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 Musculoskeletal History: Reports: Arthritis, Back Pain, Chronic, RA Other Musculoskeletal History: compression fracture, chronic pain, lumbar degenerative disc disease, polyarthraliga, sternum pain Neurological History: Reports: None Psychiatric History: Reports: None Endocrine/Metabolic History: Reports: Diabetes, Type II, Other (See Below) Other Endocrine/Metabolic History: hyperglycemia Hematologic History: Reports: None Immunologic History: Reports: None Oncologic (Cancer) History: Reports: None Dermatologic History: Reports: Other (See Below) Other Dermatologic History: sebaceous cyst - Past Surgical History Cardiovascular Surgical History: Reports: Coronary Artery Bypass, Coronary Artery Stent Musculoskeletal Surgical History: Reports: Other (See Below) Social & Family History - Family History Family Medical History: Noncontributory - Tobacco Use Smoking Status *Q: Current Every Day Smoker Years of Tobacco use: 46 Packs/Tins Daily: 0.5 Used Tobacco, but Quit: No - Caffeine Use Caffeine Use: Reports: Coffee, Soda - Alcohol Use Days Per Week of Alcohol Use: 0 - Recreational Drug Use Recreational Drug Use: No - Living Situation & Occupation Living situation: Reports: Occupation: Unemployed ED ROS GENERAL - Review of Systems Review Of Systems: See Below Constitutional: Reports: Chills. Denies: Fever Respiratory: Reports: Shortness of Breath. Denies: Cough Cardiovascular: Reports: Chest Pain GI/Abdominal: Reports: Abdominal Pain, Diarrhea. Denies: Hematochezia, Melena, Nausea, Vomiting : Reports: Dysuria ED EXAM, GI/ABD - Physical Exam Exam: See Below Exam Limited By: No Limitations General Appearance: Alert, WD/WN, No Apparent Distress Ears: Normal External Exam Nose: Normal Inspection Throat/Mouth: Normal Inspection, Normal Lips, Normal Voice, No Airway Compromise Respiratory/Chest: No Respiratory Distress, Lungs Clear, Normal Breath Sounds, Other (scars from previous sternomety) Cardiovascular: Normal Peripheral Pulses, Regular Rate, Rhythm, No Murmur GI/Abdominal Exam: Normal Bowel Sounds, Soft, Non-Tender Neurological: Alert, Oriented, Normal Cognition Psychiatric: Normal Affect, Normal Mood Skin Exam: Warm, Dry, Normal Color EKG INTERPRETATION EKG Date: 01/04/18 Time: 11:05 Rhythm: NSR Rate (Beats/Min): 88 [place]: Normal P-Wave: Present QRS: Normal ST-T: Normal QT: Normal EKG Interpretation Comments: NSR at 88 bpm. Early "R" wave transition - consider RVH pattern, septal hypertrophy. No signs of ischmia. No change from 11-30-17 EKG. Reviewed by myself and Dr. Umaña. Course - Vital Signs Last Recorded V/S: Last Vital Signs Temp 35.6 C 01/04/18 11:10 Pulse 90 01/04/18 11:10 Resp 13 01/04/18 11:10 BP 100/79 01/04/18 11:10 Pulse Ox 98 01/04/18 11:10 - Orders/Labs/Meds Labs: Laboratory Tests 01/04/18 01/04/18 01/04/18 Range/Units 11:17 11:17 14:36 WBC 10.85 H (4.23-9.07) K/mm3 RBC 4.18 L (4.63-6.08) M/mm3 Hgb 13.4 L (13.7-17.5) gm/L Hct 39.7 L (40.1-51.0) % MCV 95.0 H (79.0-92.2) fl MCH 32.1 (25.7-32.2) pg MCHC 33.8 (32.2-35.5) g/dl RDW Std Deviation 46.6 H (35.1-43.9) fL Plt Count 367 H (163-337) K/mm3 MPV 9.1 L (9.4-12.3) fl Neutrophils % (Manual) 72 H (40-60) % Band Neutrophils % 1 (0-10) % Lymphocytes % (Manual) 23 (20-40) % Atypical Lymphs % 0 % Monocytes % (Manual) 3 (2-10) % Eosinophils % (Manual) 1 (0.8-7.0) % Basophils % (Manual) 0 L (0.2-1.2) Platelet Estimate Adequate RBC Morph Comment Normal Sodium 138 (136-145) mEq/L Potassium 4.5 (3.5-5.1) mEq/L Chloride 105 (98-107) mEq/L Carbon Dioxide 21 (21-32) mEq/L Anion Gap 16.5 H (5-15) BUN 17 (7-18) mg/dL Creatinine 1.2 (0.7-1.3) mg/dL Est Cr Clr Drug Dosing 78.61 mL/min Estimated GFR (MDRD) > 60 (>60) mL/min BUN/Creatinine Ratio 14.2 (14-18) Glucose 115 H (74-106) mg/dL Calcium 8.1 L (8.5-10.1) mg/dL Total Bilirubin 0.3 (0.2-1.0) mg/dL AST 17 (15-37) U/L ALT 32 (16-63) U/L Alkaline Phosphatase 101 (46-116) U/L CK-MB (CK-2) 0.5 (0-3.6) ng/ml Troponin I < 0.017 (0.00-0.056) ng/mL C-Reactive Protein 0.2 (<1.0) mg/dL Total Protein 7.0 (6.4-8.2) g/dl Albumin 3.5 (3.4-5.0) g/dl Globulin 3.5 gm/dL Albumin/Globulin Ratio 1.0 (1-2) Lipase 242 (73-393) U/L Urine Color (Yellow) Urine Appearance (Clear) Urine pH (5.0-8.0) Ur Specific [place] (1.005-1.030) Urine Protein (Negative) Urine Glucose (UA) (Negative) Urine Ketones (Negative) Urine Occult Blood (Negative) Urine Nitrite (Negative) Urine Bilirubin (Negative) Urine Urobilinogen (0.2-1.0) Ur Leukocyte Esterase (Negative) Urine RBC (0-5) /hpf Urine WBC (0-5) /hpf Ur Epithelial Cells (0-5) /hpf Urine Bacteria (FEW) /hpf Urine Mucus (FEW) /hpf Urine Opiates Screen Negative (NEGATIVE) Ur Buprenorphine Scrn Negative (NEGATIVE) Ur Oxycodone Screen Negative (NEGATIVE) Urine Methadone Screen Negative (NEGATIVE) Ur Propoxyphene Screen Negative (NEGATIVE) Ur Barbiturates Screen Negative (NEGATIVE) Ur Tricyclics Screen Presumptive positive H (NEGATIVE) Ur Phencyclidine Scrn Negative (NEGATIVE) Ur Amphetamine Screen Negative (NEGATIVE) U Methamphetamines Scrn Negative (NEGATIVE) U Benzodiazepines Scrn Negative (NEGATIVE) U Cocaine Metab Screen Negative (NEGATIVE) U Marijuana (THC) Screen Negative (NEGATIVE) 01/04/18 Range/Units 14:36 WBC (4.23-9.07) K/mm3 RBC (4.63-6.08) M/mm3 Hgb (13.7-17.5) gm/L Hct (40.1-51.0) % MCV (79.0-92.2) fl MCH (25.7-32.2) pg MCHC (32.2-35.5) g/dl RDW Std Deviation (35.1-43.9) fL Plt Count (163-337) K/mm3 MPV (9.4-12.3) fl Neutrophils % (Manual) (40-60) % Band Neutrophils % (0-10) % Lymphocytes % (Manual) (20-40) % Atypical Lymphs % % Monocytes % (Manual) (2-10) % Eosinophils % (Manual) (0.8-7.0) % Basophils % (Manual) (0.2-1.2) Platelet Estimate RBC Morph Comment Sodium (136-145) mEq/L Potassium (3.5-5.1) mEq/L Chloride (98-107) mEq/L Carbon Dioxide (21-32) mEq/L Anion Gap (5-15) BUN (7-18) mg/dL Creatinine (0.7-1.3) mg/dL Est Cr Clr Drug Dosing mL/min Estimated GFR (MDRD) (>60) mL/min BUN/Creatinine Ratio (14-18) Glucose (74-106) mg/dL Calcium (8.5-10.1) mg/dL Total Bilirubin (0.2-1.0) mg/dL AST (15-37) U/L ALT (16-63) U/L Alkaline Phosphatase (46-116) U/L CK-MB (CK-2) (0-3.6) ng/ml Troponin I (0.00-0.056) ng/mL C-Reactive Protein (<1.0) mg/dL Total Protein (6.4-8.2) g/dl Albumin (3.4-5.0) g/dl Globulin gm/dL Albumin/Globulin Ratio (1-2) Lipase (73-393) U/L Urine Color Yellow (Yellow) Urine Appearance Clear (Clear) Urine pH 6.0 (5.0-8.0) Ur Specific [place] 1.025 (1.005-1.030) Urine Protein Trace H (Negative) Urine Glucose (UA) Negative (Negative) Urine Ketones Negative (Negative) Urine Occult Blood Negative (Negative) Urine Nitrite Negative (Negative) Urine Bilirubin Negative (Negative) Urine Urobilinogen 0.2 (0.2-1.0) Ur Leukocyte Esterase Negative (Negative) Urine RBC 0-5 (0-5) /hpf Urine WBC 0-5 (0-5) /hpf Ur Epithelial Cells 0-5 (0-5) /hpf Urine Bacteria Few (FEW) /hpf Urine Mucus Moderate H (FEW) /hpf Urine Opiates Screen (NEGATIVE) Ur Buprenorphine Scrn (NEGATIVE) Ur Oxycodone Screen (NEGATIVE) Urine Methadone Screen (NEGATIVE) Ur Propoxyphene Screen (NEGATIVE) Ur Barbiturates Screen (NEGATIVE) Ur Tricyclics Screen (NEGATIVE) Ur Phencyclidine Scrn (NEGATIVE) Ur Amphetamine Screen (NEGATIVE) U Methamphetamines Scrn (NEGATIVE) U Benzodiazepines Scrn (NEGATIVE) U Cocaine Metab Screen (NEGATIVE) U Marijuana (THC) Screen (NEGATIVE) Meds: Medications Discontinued Medications Generic Name Dose Route Start Last Admin Trade Name Freq PRN Reason Stop Dose Admin Famotidine 20 mg 01/04/18 11:39 01/04/18 11:57 Pepcid IVPUSH 01/04/18 11:40 20 mg ONETIME ONE Administration Ketorolac Tromethamine 30 mg 01/04/18 11:39 01/04/18 11:57 Toradol IVPUSH 01/04/18 11:40 30 mg ONETIME ONE Administration Sodium Chloride 10 ml 01/04/18 11:41 01/04/18 11:57 Saline Flush FLUSH 10 ml ASDIRECTED PRN Administration Keep Vein Open - Radiology Interpretation Free Text/Narrative:: chest xray shows no acute intrathroacic process abdominal xray shows no acute process. - Re-Assessments/Exams Free Text/Narrative Re-Assessment/Exam: 01/04/18 14:28 I reviewed the labs, EKG and imaging with the patient. We will discharge him home with follow-up. Patient is requesting something for pain. I will have him take his medication he has at home. Discharge instructions document. Departure - Departure Time of Disposition: 14:28 Disposition: Home, Self-Care 01 Condition: Good Clinical Impression: Atypical chest pain Abdominal pain Qualifiers: Abdominal location: left upper quadrant Qualified Code(s): R10.12 - Left upper quadrant pain - Discharge Information Instructions: Abdominal Pain, Adult, [id number], Nonspecific Chest Pain, Easy -to-Read Referrals: Danny Espino MD [Primary Care Provider] - Forms: ED Department Discharge Additional Instructions: Take your medication you have at home for pain control. Follow-up with your primary care provider in 1-2 weeks for recheck. Continue with your current plan of care. Please return to the ER if your symptoms change or worsen.
[2018-01-04] MEDS ORDERED: Famotidine 20 MG/2 ML SDV IVPUSH ONE (11:39)
[2018-01-04] MEDS ORDERED: Ketorolac 30 MG/ML SDV IVPUSH ONE (11:39)
[2018-01-04] MEDS ORDERED: Sodium Chloride 0.9% 10 ML Syringe FLUSH PRN (11:41)
--- NOTE | 2018-01-04 14:06 | CR ---
Chest: Two views of the chest were obtained. Comparison: Prior chest x-ray of 08/04/[address] chest of 11/30/17. Heart size and mediastinum are normal. Sternotomy is noted. Lungs are clear. Compression deformities are noted within the lower thoracic spine which are old. Mild degenerative change is noted within the spine. Impression: 1. Incidental findings. Nothing acute is seen. Diagnostic code #2
--- NOTE | 2018-01-04 14:07 | CR ---
Abdomen: Supine and upright views of the abdomen were obtained. Comparison: Previous abdominal x-ray of 04/20/16. Degenerative change is seen within the spine. Bowel gas pattern appears normal. No free air is seen. No soft tissue abnormality is seen. Impression: 1. Incidental findings. Diagnostic code #2
== END 2018-01-04 14:39 | disposition home or self-care (01) ==
LOC: JD.ED 10:57
DX: R07.89 Other chest pain (principal); R10.12 Left upper quadrant pain; I10 Essential (primary) hypertension; E78.00 Pure hypercholesterolemia, unspecified; I25.10 Atherosclerotic heart disease of native coronary artery without angina pectoris; K21.9 Gastro-esophageal reflux disease without esophagitis; E11.9 Type 2 diabetes mellitus without complications; F17.210 Nicotine dependence, cigarettes, uncomplicated; Z79.82 Long term (current) use of aspirin; Z79.02 Long term (current) use of antithrombotics/antiplatelets; Z79.899 Other long term (current) drug therapy; Z79.84 Long term (current) use of oral hypoglycemic drugs; Z95.5 Presence of coronary angioplasty implant and graft
CPT/HCPCS: 36415; 71046; 74019; 80053; 80306; 81001; 82553; 83690; 84484; 85025; 86140; 93005; 96374; 96375; 99284; J1885; J7050; 93010

== ENCOUNTER 2018-03-29 10:41 | Emergency (ER) | payer MEDICARE, OTHER, MEDICAID ==
[2018-03-29 10:53] VITALS: BP 147/100
[2018-03-29] MEDS ORDERED: Sodium Chloride 0.9% 10 ML Syringe FLUSH PRN (11:05)
[2018-03-29] MEDS ORDERED: Ketorolac 30 MG/ML SDV IVPUSH ONE (11:11)
--- NOTE | 2018-03-29 11:24 | EDM.PDOC ---
<Cinthia Don - Last Filed: 03/29/18 12:23> ED HPI GENERAL MEDICAL PROBLEM - General Chief Complaint: Chest Pain Stated Complaint: CHEST PAINS Time Seen by Provider: 03/29/18 10:51 Source of Information: Reports: Patient History Limitations: Reports: No Limitations - History of Present Illness INITIAL COMMENTS - FREE TEXT/NARRATIVE: Patient is a 57 YO male who presents today for chest pain. He states the pain started at 0030 this morning. He described the pain as sharp and radiating to the left arm. The pain gets worse with inspiration. He did not take anything for this pain. He reports nausea and vomiting at 0330. He had onset of left sided headache that started around the onset of his chest pain. He denies diaphoresis, vision changes, dizziness or lightheadedness. He states he has been experiencing fever, chills, cough, nausea and vomiting since Monday. He also reports some mild abdominal pain. He denies diarrhea. He denies any sick contacts. He states the only reason he decided to come in today is because he was bringing his granddaughter in for an appointment. He states he is eating and drinking well. He smokes about 1 pack a day. He has a cardiac history consistent of 9 stents in 2014 and triple bypass in 2012. He is currently on Plavix but has not filled his medications recently. left anterior chest/wrist Pain Score (Numeric/FACES): 8 - Related Data Allergies Allergy/AdvReac Type Severity Reaction Status Date / Time No Known Allergies Allergy Verified 03/29/18 10:53 Home Meds: Home Meds Umeclidinium Brm/Vilanterol Tr [Anoro Ellipta 62.5-25 Mcg INH] 1 puff INH DAILY PRN 03/28/17 [History] metFORMIN [Glucophage XR] 500 mg PO DAILY 03/28/17 [History] Diclofenac Sodium [Voltaren] 1 applic TOP TID PRN 01/04/18 [History] LORazepam [Ativan] 2 mg PO DAILY 03/29/18 [History] traMADol HCl [Tramadol HCl] 50 mg PO DAILY 03/29/18 [History] Past Medical History HEENT History: Reports: Hard of Hearing, Impaired Vision, Other (See Below) Other HEENT History: hard of hearing Cardiovascular History: Reports: Bypass, CAD, High Cholesterol, Hypertension, Stents, Other (See Below) Other Cardiovascular History: Triple Bypass in November 2012, perpipheral vascular disease; 2 stents of Oct 2016: total of 9 stents. Respiratory History: Reports: Asthma, COPD, Sleep Apnea, SOB Gastrointestinal History: Reports: Colon Polyp, GERD, GI Bleed, Helicobacter Pylori, Inflammatory Bowel Disease, PUD, Other (See Below) Other Gastrointestinal History: tubular adenoma, constipation, PUD Genitourinary History: Reports: BPH, Prostate Disorder ORTHO RN History: Reports: None Musculoskeletal History: Reports: Arthritis, Back Pain, Chronic, RA Other Musculoskeletal History: compression fracture, chronic pain, lumbar degenerative disc disease, polyarthraliga, sternum pain Neurological History: Reports: None Psychiatric History: Reports: None Endocrine/Metabolic History: Reports: Diabetes, Type II, Other (See Below) Other Endocrine/Metabolic History: hyperglycemia Hematologic History: Reports: None Immunologic History: Reports: None Oncologic (Cancer) History: Reports: None Dermatologic History: Reports: Other (See Below) Other Dermatologic History: sebaceous cyst - Past Surgical History Cardiovascular Surgical History: Reports: Coronary Artery Bypass, Coronary Artery Stent Musculoskeletal Surgical History: Reports: Other (See Below) Social & Family History - Family History Family Medical History: Noncontributory - Tobacco Use Smoking Status *Q: Current Every Day Smoker Years of Tobacco use: 40 Packs/Tins Daily: 0.5 Used Tobacco, but Quit: No - Caffeine Use Caffeine Use: Reports: Coffee, Soda - Alcohol Use Days Per Week of Alcohol Use: 0 - Recreational Drug Use Recreational Drug Use: No - Living Situation & Occupation Living situation: Reports: Occupation: Unemployed ED ROS GENERAL - Review of Systems Review Of Systems: See Below Constitutional: Reports: Fever, Chills, Fatigue HEENT: Reports: No Symptoms Respiratory: Reports: Pleuritic Chest Pain, Cough Cardiovascular: Reports: Chest Pain (left side radiating down the arm, worse with movement and inspiration). Denies: Lightheadedness, Palpitations, Syncope GI/Abdominal: Reports: Abdominal Pain (mild generalized abdominal pain). Denies : Constipation, Diarrhea Skin: Reports: No Symptoms Neurological: Reports: Headache (left side, throbbing). Denies: Dizziness, Numbness, Tingling Psychiatric: Reports: No Symptoms ED EXAM, GENERAL - Physical Exam Exam: See Below Exam Limited By: No Limitations General Appearance: Alert, WD/WN, No Apparent Distress Eye Exam: Bilateral Eye: EOMI, PERRL Throat/Mouth: Normal Inspection, Normal Gums, Normal Oropharynx Head: Atraumatic Respiratory/Chest: No Respiratory Distress, Normal Breath Sounds, Rhonchi ( right upper lobe, expiratory ), Other (chest tenderness on left and right side, reproducing the pain the patient is reporting). No: Crackles, Wheezing Cardiovascular: Regular Rate, Rhythm, No Edema, No Murmur GI/Abdominal: Normal Bowel Sounds, Soft, Non-Tender, No Distention, No Mass Neurological: Alert, Oriented, CN II-XII Intact, Normal Cognition, Normal Gait, No Motor/Sensory Deficits Psychiatric: Normal Affect, Normal Mood Skin Exam: Warm, Dry, Intact, Normal Color, No Rash Course - Vital Signs Last Recorded V/S: Last Vital Signs Temp 97.8 F 03/29/18 10:41 Pulse 90 03/29/18 10:41 Resp 18 03/29/18 10:41 BP 147/100 H 03/29/18 10:41 Pulse Ox 99 03/29/18 10:41 - Orders/Labs/Meds Orders: Active Orders 24 hr Category Date Time Status EKG 12 Lead [EKG Documentation Completion] [RC] STAT Care 03/29/18 11:05 Inactive EKG Documentation Completion [RC] ASDIRECTED Care 03/29/18 11:05 Active Peripheral IV Care [RC] . DIRECTED Care 03/29/18 11:05 Active Sodium Chloride 0.9% [Saline Flush] Med 03/29/18 11:05 Active 10 ml FLUSH ASDIRECTED PRN fentaNYL [Sublimaze] Med 03/29/18 12:46 Once 100 mcg IVPUSH ONETIME ONE Peripheral IV Insertion Adult [OM.PC] Stat Oth 03/29/18 11:04 Ordered EKG 12 Lead [EK] Stat Ther 03/29/18 11:04 Ordered Medication Orders Fentanyl (Sublimaze) 100 mcg IVPUSH ONETIME ONE Stop: 03/29/18 12:47 Sodium Chloride (Saline Flush) 10 ml FLUSH ASDIRECTED PRN PRN Reason: Keep Vein Open Last Admin: 03/29/18 11:08 Dose: 10 ml Labs: Laboratory Tests 03/29/18 03/29/18 Range/Units 10:35 10:35 WBC 8.59 (4.23-9.07) K/mm3 RBC 4.17 L (4.63-6.08) M/mm3 Hgb 13.1 L (13.7-17.5) gm/L Hct 39.7 L (40.1-51.0) % MCV 95.2 H (79.0-92.2) fl MCH 31.4 (25.7-32.2) pg MCHC 33.0 (32.2-35.5) g/dl RDW Std Deviation 47.9 H (35.1-43.9) fL Plt Count 344 H (163-337) K/mm3 MPV 9.2 L (9.4-12.3) fl Neutrophils % (Manual) 69 H (40-60) % Band Neutrophils % 1 (0-10) % Lymphocytes % (Manual) 29 (20-40) % Atypical Lymphs % 0 % Monocytes % (Manual) 1 L (2-10) % Eosinophils % (Manual) 0 L (0.8-7.0) % Basophils % (Manual) 0 L (0.2-1.2) Platelet Estimate Adequate RBC Morph Comment Normal Sodium 137 (136-145) mEq/L Potassium 3.9 (3.5-5.1) mEq/L Chloride 103 (98-107) mEq/L Carbon Dioxide 24 (21-32) mEq/L Anion Gap 13.9 (5-15) BUN 13 (7-18) mg/dL Creatinine 1.1 (0.7-1.3) mg/dL Est Cr Clr Drug Dosing 85.75 mL/min Estimated GFR (MDRD) > 60 (>60) mL/min BUN/Creatinine Ratio 11.8 L (14-18) Glucose 114 H (74-106) mg/dL Calcium 8.3 L (8.5-10.1) mg/dL Total Bilirubin 0.4 (0.2-1.0) mg/dL AST 13 L (15-37) U/L ALT 34 (16-63) U/L Alkaline Phosphatase 82 (46-116) U/L Troponin I < 0.017 (0.00-0.056) ng/mL Total Protein 7.3 (6.4-8.2) g/dl Albumin 3.8 (3.4-5.0) g/dl Globulin 3.5 gm/dL Albumin/Globulin Ratio 1.1 (1-2) Meds: Medications Generic Name Dose Route Start Last Admin Trade Name Wu PRN Reason Stop Dose Admin Fentanyl 100 mcg 03/29/18 12:46 Sublimaze IVPUSH 03/29/18 12:47 ONETIME ONE Sodium Chloride 10 ml 03/29/18 11:05 03/29/18 11:08 Saline Flush FLUSH 10 ml ASDIRECTED PRN Administration Keep Vein Open Discontinued Medications Generic Name Dose Route Start Last Admin Trade Name Wu PRN Reason Stop Dose Admin Fentanyl 100 mcg 03/29/18 11:42 03/29/18 11:50 Sublimaze IVPUSH 03/29/18 11:43 100 mcg ONETIME ONE Administration Ketorolac Tromethamine 30 mg 03/29/18 11:11 03/29/18 11:22 Toradol IVPUSH 03/29/18 11:12 30 mg ONETIME ONE Administration - Re-Assessments/Exams Free Text/Narrative Re-Assessment/Exam: 03/29/18 11:16 Labs ordered to include CBC, CMP, Troponin I. Ordered tordol 30 mg IV for pain. EKG and chest x-ray ordered. Patient's pain is reproducible to palpation of both the right and left chest, ribs 2-5. Patient states this is the pain that he has been experiencing. Patient has symptoms consistent with a viral infection which also could be the cause of his chest wall pain. 03/29/18 11:20 EKG shows normal sinus rhythm. No ischemic changes noted. 03/29/18 12:20 Chest x-ray shows no acute changes. Departure - Departure Disposition: Home, Self-Care 01 Clinical Impression: Atypical chest pain Headache Qualifiers: Headache type: unspecified Headache chronicity pattern: acute headache Intractability: not intractable Qualified Code(s): R51 - Headache Referrals: Danny Espino MD [Primary Care Provider] - Forms: ED Department Discharge Additional Instructions: Take your medication as prescribed. Please return if you are worse of follow up with your doctor. - My Orders Last 24 Hours: My Active Orders 03/29/18 11:05 EKG 12 Lead [EKG Documentation Completion] [RC] STAT 03/29/18 12:46 fentaNYL [Sublimaze] 100 mcg IVPUSH ONETIME ONE - Assessment/Plan Last 24 Hours: My Active Orders 03/29/18 11:05 EKG 12 Lead [EKG Documentation Completion] [RC] STAT 03/29/18 12:46 fentaNYL [Sublimaze] 100 mcg IVPUSH ONETIME ONE <Óscar Maldonado A - Last Filed: 03/29/18 12:51> EKG INTERPRETATION EKG Date: 03/29/18 Time: 12:48 Rhythm: NSR Rate (Beats/Min): 86 [place]oss: Normal P-Wave: Present QRS: Normal ST-T: Normal QT: Normal Course - Re-Assessments/Exams Free Text/Narrative Re-Assessment/Exam: 03/29/18 12:48 I examined the patient and agree with Tae's assessment and plan. His EKG shows a NSR with no acute changes. His CBC and CMP look good. His troponin is negative. He had a headache so I gave him some fentanyl and that helped. I will discharge him home. Departure - Departure Time of Disposition: 12:50 Condition: Good
[2018-03-29] MEDS ORDERED: fentaNYL 100 MCG/2 ML SDV IVPUSH ONE ×2 (11:42→12:46)
--- NOTE | 2018-03-29 12:02 | CR ---
Chest: Portable view of the chest was obtained. Comparison: Prior chest x-ray of 01/04/18. Heart size and mediastinum are normal. Previous sternotomy is noted. Lungs are clear with no acute parenchymal densities. Bony structures are grossly intact. Impression: 1. Nothing acute is seen on portable chest x-ray. Diagnostic code #1
== END 2018-03-29 13:10 | disposition home or self-care (01) ==
LOC: JD.ED 10:41
DX: R07.89 Other chest pain (principal); R51 Headache; J44.9 Chronic obstructive pulmonary disease, unspecified; E11.9 Type 2 diabetes mellitus without complications; F17.210 Nicotine dependence, cigarettes, uncomplicated; Z79.84 Long term (current) use of oral hypoglycemic drugs
CPT/HCPCS: 36415; 71045; 80053; 84484; 85025; 93005; 96374; 96375; 96376; 99285; J1885; J3010; J7050

== ENCOUNTER 2018-07-10 11:18 | Emergency (ER) | payer MEDICARE, OTHER, MEDICAID ==
[2018-07-10] MEDS ORDERED: Sodium Chloride 0.9% 10 ML Syringe FLUSH PRN (11:24)
[2018-07-10 11:27] VITALS: BP 109/87
[2018-07-10] MEDS ORDERED: Sodium Chloride 0.9% 1,000 ML IV ONE ×3 (11:39→13:06)
--- NOTE | 2018-07-10 11:43 | EDM.PDOC ---
ED HPI GENERAL MEDICAL PROBLEM - General Chief Complaint: Chest Pain Stated Complaint: CHEST PAIN Time Seen by Provider: 07/10/18 11:24 Source of Information: Reports: Patient History Limitations: Reports: No Limitations - History of Present Illness INITIAL COMMENTS - FREE TEXT/NARRATIVE: 57-year-old male presents for evaluation and treatment of chest pain and syncope. Patient reports been having left-sided chest pain intermittent for several weeks. He was seen in the ED on June 30. Complete workup was done including ekg , chest xray and labs; did not appear to be cardiac at that time he was sent home. He reports this morning he woke up with chest pain. Currently rates the pain is an 8 out of 10. States it feels different from his previous chest pain episodes. States that it comes and goes. Patient reports this morning he felt dizzy. He was walking to the bathroom. He states that his body was jerking. He fell back and hit his head. He is currently complaining of a headache and back pain. States he has been feeling dizzy. The first episode of syncope occurred around 7:30 AM this morning. Sounds as if the [facility] ambulance came checked him out. EMS took his vitals reported blood pressure 91/63, heart rate of 107 and respirations 18. This is at 0944. Patient then drove to [place]. They stopped at [facility]. While he was at [facility] he states that he felt dizzy and had a second syncopal episode. Was out for approximately 4-5 seconds. He is denying any nausea, vomiting or vision changes. Patient has chronic back pain. Patient has a past medical history of multiple cardiac issues including multiple stents and bypass. Primary care provider Susan is Dr. Nicholas. He does see cardiology. He did take all his medications this morning including Plavix, metoprolol, lisinopril, Imdur, Ativan, Voltaren and Percocet. Back Pain Score (Numeric/FACES): 10 Left Chest Pain Score (Numeric/FACES): 7 - Related Data Allergies Allergy/AdvReac Type Severity Reaction Status Date / Time No Known Allergies Allergy Verified 07/10/18 11:26 Home Meds: Home Meds metFORMIN [Glucophage XR] 500 mg PO DAILY 03/28/17 [History] Diclofenac Sodium [Voltaren] 1 applic TOP TID PRN 01/04/18 [History] LORazepam [Ativan] 2 mg PO DAILY 03/29/18 [History] Acetaminophen/oxyCODONE [Percocet 325-10 MG] 1 tab PO Q6H PRN 07/10/18 [History] Clopidogrel Bisulfate [Clopidogrel] 75 mg PO DAILY 07/10/18 [History] Isosorbide Mononitrate [Isosorbide Mononitrate ER] 120 mg PO DAILY 07/10/18 [ History] Lisinopril 10 mg PO DAILY 07/10/18 [History] Metoprolol Succinate 50 mg PO BID 07/10/18 [History] Pantoprazole Sodium 40 mg PO DAILY 07/10/18 [History] Pregabalin [Lyrica] 100 mg PO TID 07/10/18 [History] Rosuvastatin Calcium 20 mg PO DAILY 07/10/18 [History] Past Medical History HEENT History: Reports: Hard of Hearing, Impaired Vision, Other (See Below) Other HEENT History: hard of hearing Cardiovascular History: Reports: Bypass, CAD, High Cholesterol, Hypertension, Stents, Other (See Below) Other Cardiovascular History: Triple Bypass in November 2012, perpipheral vascular disease; 2 stents of Oct 2016: total of 9 stents. Respiratory History: Reports: Asthma, COPD, Sleep Apnea, SOB Gastrointestinal History: Reports: Colon Polyp, GERD, GI Bleed, Helicobacter Pylori, Inflammatory Bowel Disease, PUD, Other (See Below) Other Gastrointestinal History: tubular adenoma, constipation, PUD Genitourinary History: Reports: BPH, Prostate Disorder [employer] History: Reports: None Musculoskeletal History: Reports: Arthritis, Back Pain, Chronic, RA Other Musculoskeletal History: compression fracture, chronic pain, lumbar degenerative disc disease, polyarthraliga, sternum pain Neurological History: Reports: None Psychiatric History: Reports: None Endocrine/Metabolic History: Reports: Diabetes, Type II, Other (See Below) Other Endocrine/Metabolic History: hyperglycemia Hematologic History: Reports: None Immunologic History: Reports: None Oncologic (Cancer) History: Reports: None Dermatologic History: Reports: Other (See Below) Other Dermatologic History: sebaceous cyst - Past Surgical History Cardiovascular Surgical History: Reports: Coronary Artery Bypass, Coronary Artery Stent Musculoskeletal Surgical History: Reports: Other (See Below) Social & Family History - Family History Family Medical History: Noncontributory - Tobacco Use Smoking Status *Q: Never Smoker - Caffeine Use Caffeine Use: Reports: None - Recreational Drug Use Recreational Drug Use: No - Living Situation & Occupation Living situation: Reports: Occupation: Unemployed ED ROS GENERAL - Review of Systems Review Of Systems: See Below Cardiovascular: Reports: Chest Pain, Lightheadedness, Syncope GI/Abdominal: Denies: Abdominal Pain, Nausea, Vomiting Neurological: Reports: Dizziness, Headache, Syncope ED EXAM, GENERAL - Physical Exam Exam: See Below Exam Limited By: No Limitations General Appearance: Alert, WD/WN, No Apparent Distress Nose: Normal Inspection Throat/Mouth: Normal Inspection, Normal Lips, Normal Voice, No Airway Compromise Respiratory/Chest: No Respiratory Distress, Lungs Clear, Normal Breath Sounds Cardiovascular: Normal Peripheral Pulses, Regular Rate, Rhythm, No Murmur GI/Abdominal: Soft, Non-Tender Neurological: Alert, Oriented, Normal Cognition Psychiatric: Normal Affect, Normal Mood Skin Exam: Warm, Dry, Normal Color EKG INTERPRETATION EKG Date: 07/10/18 Time: 11:30 Rhythm: Other (sinus tachycardia at 101 bpm) Rate (Beats/Min): 101 [place]: Normal P-Wave: Present QRS: Normal ST-T: Normal QT: Normal Comparison: Change From Previous EKG EKG Interpretation Comments: Sinus tachycardia at 101 bpm. Prolonged Qt with a QTc of 546. Flipped t waves V1 -V5. This is a change from 06-30-18 ekg. Course - Vital Signs Last Recorded V/S: Last Vital Signs Temp 97.6 F 07/10/18 11:23 Pulse 106 H 07/10/18 11:23 Resp 14 07/10/18 11:23 BP 109/87 07/10/18 11:23 Pulse Ox 94 L 07/10/18 11:23 - Orders/Labs/Meds Orders: Active Orders 24 hr Category Date Time Status Cardiac Monitoring [RC] . DIRECTED Care 07/10/18 11:39 Active EKG 12 Lead [EKG Documentation Completion] [RC] STAT Care 07/10/18 11:24 Active Peripheral IV Care [RC] . DIRECTED Care 07/10/18 11:24 Active DRUG SCREEN, URINE [URCHEM] Stat Lab 07/10/18 11:50 Ordered UA W/MICROSCOPIC [URIN] Stat Lab 07/10/18 11:50 Ordered Peripheral IV Insertion Adult [OM.PC] Routine Oth 07/10/18 11:24 Ordered Labs: Laboratory Tests 07/10/18 07/10/18 07/10/18 Range/Units 11:35 11:35 11:35 WBC 12.93 H (4.23-9.07) K/mm3 RBC 4.20 L (4.63-6.08) M/mm3 Hgb 13.5 L (13.7-17.5) gm/L Hct 39.3 L (40.1-51.0) % MCV 93.6 H (79.0-92.2) fl MCH 32.1 (25.7-32.2) pg MCHC 34.4 (32.2-35.5) g/dl RDW Std Deviation 45.0 H (35.1-43.9) fL Plt Count 337 (163-337) K/mm3 MPV 8.8 L (9.4-12.3) fl Neut % (Auto) 63.1 (34.0-67.9) % Lymph % (Auto) 26.4 (21.8-53.1) % [place] % (Auto) 7.5 (5.3-12.2) % Eos % (Auto) 1.9 (0.8-7.0) Baso % (Auto) 0.2 (0.1-1.2) % Neut # (Auto) 8.17 H (1.78-5.38) K/mm3 Lymph # (Auto) 3.41 (1.32-3.57) K/mm3 [place] # (Auto) 0.97 H (0.30-0.82) K/mm3 Eos # (Auto) 0.24 (0.04-0.54) K/mm3 Baso # (Auto) 0.02 (0.01-0.08) K/mm3 Manual Slide Review Abnormal smear PT (9.5-12.1) SECONDS INR APTT (24-31) SECONDS D-Dimer, Quantitative (0.19-0.50) mg/L Sodium 133 L (136-145) mEq/L Potassium 4.3 (3.5-5.1) mEq/L Chloride 99 (98-107) mEq/L Carbon Dioxide 22 (21-32) mEq/L Anion Gap 16.3 H (5-15) BUN 17 (7-18) mg/dL Creatinine 1.9 H (0.7-1.3) mg/dL Est Cr Clr Drug Dosing 49.65 mL/min Estimated GFR (MDRD) 37 (>60) mL/min BUN/Creatinine Ratio 8.9 L (14-18) Glucose 138 H (74-106) mg/dL Calcium 8.1 L (8.5-10.1) mg/dL Total Bilirubin 0.4 (0.2-1.0) mg/dL AST 14 L (15-37) U/L ALT 21 (16-63) U/L Alkaline Phosphatase 87 (46-116) U/L CK-MB (CK-2) (0-3.6) ng/ml Troponin I < 0.017 (0.00-0.056) ng/mL NT-Pro-B Natriuret Pep 157 H (0-125) pg/mL Total Protein 7.4 (6.4-8.2) g/dl Albumin 3.8 (3.4-5.0) g/dl Globulin 3.6 gm/dL Albumin/Globulin Ratio 1.1 (1-2) Lipase (73-393) U/L Urine Color (Yellow) Urine Appearance (Clear) Urine pH (5.0-8.0) Ur Specific Pool (1.005-1.030) Urine Protein (Negative) Urine Glucose (UA) (Negative) Urine Ketones (Negative) Urine Occult Blood (Negative) Urine Nitrite (Negative) Urine Bilirubin (Negative) Urine Urobilinogen (0.2-1.0) Ur Leukocyte Esterase (Negative) Urine RBC (0-5) /hpf Urine WBC (0-5) /hpf Ur Epithelial Cells (0-5) /hpf Calcium Oxalate Crystal (NONE) Urine Bacteria (FEW) /hpf Urine Mucus (FEW) /hpf Urine Opiates Screen (NEGATIVE) Ur Buprenorphine Scrn (NEGATIVE) Ur Oxycodone Screen (NEGATIVE) Urine Methadone Screen (NEGATIVE) Ur Propoxyphene Screen (NEGATIVE) Ur Barbiturates Screen (NEGATIVE) Ur Tricyclics Screen (NEGATIVE) Ur Phencyclidine Scrn (NEGATIVE) Ur Amphetamine Screen (NEGATIVE) U Methamphetamines Scrn (NEGATIVE) U Benzodiazepines Scrn (NEGATIVE) U Cocaine Metab Screen (NEGATIVE) U Marijuana (THC) Screen (NEGATIVE) Ethyl Alcohol 0.00 (0.00) gm% 07/10/18 07/10/18 07/10/18 Range/Units 11:35 11:35 11:35 WBC (4.23-9.07) K/mm3 RBC (4.63-6.08) M/mm3 Hgb (13.7-17.5) gm/L Hct (40.1-51.0) % MCV (79.0-92.2) fl MCH (25.7-32.2) pg MCHC (32.2-35.5) g/dl RDW Std Deviation (35.1-43.9) fL Plt Count (163-337) K/mm3 MPV (9.4-12.3) fl Neut % (Auto) (34.0-67.9) % Lymph % (Auto) (21.8-53.1) % [place] % (Auto) (5.3-12.2) % Eos % (Auto) (0.8-7.0) Baso % (Auto) (0.1-1.2) % Neut # (Auto) (1.78-5.38) K/mm3 Lymph # (Auto) (1.32-3.57) K/mm3 [place] # (Auto) (0.30-0.82) K/mm3 Eos # (Auto) (0.04-0.54) K/mm3 Baso # (Auto) (0.01-0.08) K/mm3 Manual Slide Review PT 10.2 (9.5-12.1) SECONDS INR 0.93 APTT 31 (24-31) SECONDS D-Dimer, Quantitative 0.40 (0.19-0.50) mg/L Sodium (136-145) mEq/L Potassium (3.5-5.1) mEq/L Chloride (98-107) mEq/L Carbon Dioxide (21-32) mEq/L Anion Gap (5-15) BUN (7-18) mg/dL Creatinine (0.7-1.3) mg/dL Est Cr Clr Drug Dosing mL/min Estimated GFR (MDRD) (>60) mL/min BUN/Creatinine Ratio (14-18) Glucose (74-106) mg/dL Calcium (8.5-10.1) mg/dL Total Bilirubin (0.2-1.0) mg/dL AST (15-37) U/L ALT (16-63) U/L Alkaline Phosphatase (46-116) U/L CK-MB (CK-2) (0-3.6) ng/ml Troponin I (0.00-0.056) ng/mL NT-Pro-B Natriuret Pep (0-125) pg/mL Total Protein (6.4-8.2) g/dl Albumin (3.4-5.0) g/dl Globulin gm/dL Albumin/Globulin Ratio (1-2) Lipase 101 (73-393) U/L Urine Color (Yellow) Urine Appearance (Clear) Urine pH (5.0-8.0) Ur Specific Pool (1.005-1.030) Urine Protein (Negative) Urine Glucose (UA) (Negative) Urine Ketones (Negative) Urine Occult Blood (Negative) Urine Nitrite (Negative) Urine Bilirubin (Negative) Urine Urobilinogen (0.2-1.0) Ur Leukocyte Esterase (Negative) Urine RBC (0-5) /hpf Urine WBC (0-5) /hpf Ur Epithelial Cells (0-5) /hpf Calcium Oxalate Crystal (NONE) Urine Bacteria (FEW) /hpf Urine Mucus (FEW) /hpf Urine Opiates Screen (NEGATIVE) Ur Buprenorphine Scrn (NEGATIVE) Ur Oxycodone Screen (NEGATIVE) Urine Methadone Screen (NEGATIVE) Ur Propoxyphene Screen (NEGATIVE) Ur Barbiturates Screen (NEGATIVE) Ur Tricyclics Screen (NEGATIVE) Ur Phencyclidine Scrn (NEGATIVE) Ur Amphetamine Screen (NEGATIVE) U Methamphetamines Scrn (NEGATIVE) U Benzodiazepines Scrn (NEGATIVE) U Cocaine Metab Screen (NEGATIVE) U Marijuana (THC) Screen (NEGATIVE) Ethyl Alcohol (0.00) gm% 07/10/18 07/10/18 07/10/18 Range/Units 11:35 11:50 11:50 WBC (4.23-9.07) K/mm3 RBC (4.63-6.08) M/mm3 Hgb (13.7-17.5) gm/L Hct (40.1-51.0) % MCV (79.0-92.2) fl MCH (25.7-32.2) pg MCHC (32.2-35.5) g/dl RDW Std Deviation (35.1-43.9) fL Plt Count (163-337) K/mm3 MPV (9.4-12.3) fl Neut % (Auto) (34.0-67.9) % Lymph % (Auto) (21.8-53.1) % [place] % (Auto) (5.3-12.2) % Eos % (Auto) (0.8-7.0) Baso % (Auto) (0.1-1.2) % Neut # (Auto) (1.78-5.38) K/mm3 Lymph # (Auto) (1.32-3.57) K/mm3 [place] # (Auto) (0.30-0.82) K/mm3 Eos # (Auto) (0.04-0.54) K/mm3 Baso # (Auto) (0.01-0.08) K/mm3 Manual Slide Review PT (9.5-12.1) SECONDS INR APTT (24-31) SECONDS D-Dimer, Quantitative (0.19-0.50) mg/L Sodium (136-145) mEq/L Potassium (3.5-5.1) mEq/L Chloride (98-107) mEq/L Carbon Dioxide (21-32) mEq/L Anion Gap (5-15) BUN (7-18) mg/dL Creatinine (0.7-1.3) mg/dL Est Cr Clr Drug Dosing mL/min Estimated GFR (MDRD) (>60) mL/min BUN/Creatinine Ratio (14-18) Glucose (74-106) mg/dL Calcium (8.5-10.1) mg/dL Total Bilirubin (0.2-1.0) mg/dL AST (15-37) U/L ALT (16-63) U/L Alkaline Phosphatase (46-116) U/L CK-MB (CK-2) < 0.5 (0-3.6) ng/ml Troponin I (0.00-0.056) ng/mL NT-Pro-B Natriuret Pep (0-125) pg/mL Total Protein (6.4-8.2) g/dl Albumin (3.4-5.0) g/dl Globulin gm/dL Albumin/Globulin Ratio (1-2) Lipase (73-393) U/L Urine Color Fannie H (Yellow) Urine Appearance Slt cloudy H (Clear) Urine pH 5.0 (5.0-8.0) Ur Specific Pool > or = 1.030 (1.005-1.030) Urine Protein 2+ H (Negative) Urine Glucose (UA) Negative (Negative) Urine Ketones 1+ H (Negative) Urine Occult Blood Negative (Negative) Urine Nitrite Negative (Negative) Urine Bilirubin 2+ H (Negative) Urine Urobilinogen 1.0 (0.2-1.0) Ur Leukocyte Esterase Negative (Negative) Urine RBC Not seen (0-5) /hpf Urine WBC Not seen (0-5) /hpf Ur Epithelial Cells 20-30 H (0-5) /hpf Calcium Oxalate Crystal Many H (NONE) Urine Bacteria Few (FEW) /hpf Urine Mucus Moderate H (FEW) /hpf Urine Opiates Screen Negative (NEGATIVE) Ur Buprenorphine Scrn Negative (NEGATIVE) Ur Oxycodone Screen Negative (NEGATIVE) Urine Methadone Screen Negative (NEGATIVE) Ur Propoxyphene Screen Negative (NEGATIVE) Ur Barbiturates Screen Negative (NEGATIVE) Ur Tricyclics Screen Presumptive positive H (NEGATIVE) Ur Phencyclidine Scrn Negative (NEGATIVE) Ur Amphetamine Screen Negative (NEGATIVE) U Methamphetamines Scrn Negative (NEGATIVE) U Benzodiazepines Scrn Negative (NEGATIVE) U Cocaine Metab Screen Negative (NEGATIVE) U Marijuana (THC) Screen Negative (NEGATIVE) Ethyl Alcohol (0.00) gm% 07/10/18 Range/Units 14:38 WBC (4.23-9.07) K/mm3 RBC (4.63-6.08) M/mm3 Hgb (13.7-17.5) gm/L Hct (40.1-51.0) % MCV (79.0-92.2) fl MCH (25.7-32.2) pg MCHC (32.2-35.5) g/dl RDW Std Deviation (35.1-43.9) fL Plt Count (163-337) K/mm3 MPV (9.4-12.3) fl Neut % (Auto) (34.0-67.9) % Lymph % (Auto) (21.8-53.1) % [place] % (Auto) (5.3-12.2) % Eos % (Auto) (0.8-7.0) Baso % (Auto) (0.1-1.2) % Neut # (Auto) (1.78-5.38) K/mm3 Lymph # (Auto) (1.32-3.57) K/mm3 [place] # (Auto) (0.30-0.82) K/mm3 Eos # (Auto) (0.04-0.54) K/mm3 Baso # (Auto) (0.01-0.08) K/mm3 Manual Slide Review PT (9.5-12.1) SECONDS INR APTT (24-31) SECONDS D-Dimer, Quantitative (0.19-0.50) mg/L Sodium (136-145) mEq/L Potassium (3.5-5.1) mEq/L Chloride (98-107) mEq/L Carbon Dioxide (21-32) mEq/L Anion Gap (5-15) BUN (7-18) mg/dL Creatinine (0.7-1.3) mg/dL Est Cr Clr Drug Dosing mL/min Estimated GFR (MDRD) (>60) mL/min BUN/Creatinine Ratio (14-18) Glucose (74-106) mg/dL Calcium (8.5-10.1) mg/dL Total Bilirubin (0.2-1.0) mg/dL AST (15-37) U/L ALT (16-63) U/L Alkaline Phosphatase (46-116) U/L CK-MB (CK-2) (0-3.6) ng/ml Troponin I < 0.017 (0.00-0.056) ng/mL NT-Pro-B Natriuret Pep (0-125) pg/mL Total Protein (6.4-8.2) g/dl Albumin (3.4-5.0) g/dl Globulin gm/dL Albumin/Globulin Ratio (1-2) Lipase (73-393) U/L Urine Color (Yellow) Urine Appearance (Clear) Urine pH (5.0-8.0) Ur Specific Pool (1.005-1.030) Urine Protein (Negative) Urine Glucose (UA) (Negative) Urine Ketones (Negative) Urine Occult Blood (Negative) Urine Nitrite (Negative) Urine Bilirubin (Negative) Urine Urobilinogen (0.2-1.0) Ur Leukocyte Esterase (Negative) Urine RBC (0-5) /hpf Urine WBC (0-5) /hpf Ur Epithelial Cells (0-5) /hpf Calcium Oxalate Crystal (NONE) Urine Bacteria (FEW) /hpf Urine Mucus (FEW) /hpf Urine Opiates Screen (NEGATIVE) Ur Buprenorphine Scrn (NEGATIVE) Ur Oxycodone Screen (NEGATIVE) Urine Methadone Screen (NEGATIVE) Ur Propoxyphene Screen (NEGATIVE) Ur Barbiturates Screen (NEGATIVE) Ur Tricyclics Screen (NEGATIVE) Ur Phencyclidine Scrn (NEGATIVE) Ur Amphetamine Screen (NEGATIVE) U Methamphetamines Scrn (NEGATIVE) U Benzodiazepines Scrn (NEGATIVE) U Cocaine Metab Screen (NEGATIVE) U Marijuana (THC) Screen (NEGATIVE) Ethyl Alcohol (0.00) gm% Meds: Medications Discontinued Medications Generic Name Dose Route Start Last Admin Trade Name Freq PRN Reason Stop Dose Admin Acetaminophen 650 mg 07/10/18 12:11 07/10/18 12:17 Tylenol PO 07/10/18 12:12 650 mg NOW ONE Administration Sodium Chloride 1,000 mls @ 999 mls/hr 07/10/18 11:39 07/10/18 11:58 Normal Saline IV 07/10/18 12:39 999 mls/hr ONETIME ONE Administration Sodium Chloride 1,000 mls @ 999 mls/hr 07/10/18 12:14 07/10/18 12:58 Normal Saline IV 07/10/18 13:14 999 mls/hr ONETIME ONE Administration Sodium Chloride 1,000 mls @ 999 mls/hr 07/10/18 13:06 07/10/18 14:02 Normal Saline IV 07/10/18 14:06 999 mls/hr ONETIME ONE Administration Sodium Chloride 10 ml 07/10/18 11:24 07/10/18 11:55 Saline Flush FLUSH 10 ml ASDIRECTED PRN Administration Keep Vein Open - Radiology Interpretation Free Text/Narrative:: Chest: Portable view of the chest was obtained. Comparison: Prior chest x-ray of 06/30/18. Heart size and mediastinum are normal. Prior sternotomy is noted. Lungs are clear without acute parenchymal change. Bony structures are grossly intact. Impression: 1. Nothing acute is seen on portable chest x-ray. Head CT Technique: Multiple axial sections through the brain were obtained. Intravenous contrast was not utilized. Comparison: Previous head CT study of 11/17/17. Findings: Ventricles along with basal cisterns and sulci over convexities are mildly prominent. No abnormal parenchymal densities are seen. No evidence of intracranial hemorrhage. No midline shift or mass effect is seen. Slight atherosclerotic calcification is seen within the right vertebral artery. No acute calvarial abnormality is appreciated. Minimal sinus findings are seen within the right maxillary sinus which are incidental. Impression: 1. Incidental findings. Nothing acute is appreciated on noncontrast head CT study. - Re-Assessments/Exams Free Text/Narrative Re-Assessment/Exam: 07/10/18 13:30 Checked on The Patient. He Continues to Complain of Chest Pain. He States He Did Not Any Relief with Tylenol. Given That His Blood Pressure Is Low I'm Unwilling to Give Him Any Narcotics. His Kidney Function Is Also Increased and Therefore Toradol is not safe either. Patient reports that he took a Percocet this morning. Of note his urine drug screen is negative for any opioids. I reviewed labs, EKG and imaging with the patient. His blood pressure continues to be low but is steadily improving. Blood pressure at this time is 89/53. I feel that he likely is dehydrated and his blood pressure was low this morning. He then took all his medications including his Imdur, Toprol and lisinopril. This caused him to have hypotension and then a syncopal event. Plan will be to monitor in the ED for a while longer. He will receive 3 L of fluid for his hypotension and be considered to monitor. We will repeat his troponin here in a few hours. 07/10/18 14:41 b/p continues to improve. 91/61 at this time. 07/10/18 15:21 b/p 94/61. Repeat trop is negative at <0.017 07/10/18 15:41 Blood pressure 112/70 at this time. Patient is alert. Reviewed the repeat troponin with patient. He continuous to ask for pain medication. Given that he is in pain contract he can take his medication he has at home. Will discharge home. Discharge instructions as documented. Departure - Departure Time of Disposition: 15:42 Disposition: Home, Self-Care 01 Condition: Fair Clinical Impression: Dehydration, Hypotension Instructions: Hypotension, [id number], Dehydration, Adult, [id number] Referrals: PCP,None [Ordering Only Provider] - Danny Espino MD [Primary Care Provider] - Millie Jimenez NP [Ordering Only Provider] - Forms: ED Department Discharge Additional Instructions: Make sure you are drinking plenty of fluids. Drink water, gatorade or powerade. Avoid caffeined beverages as these can at as a diuretic. Continue with your current medications and plan of care. you will likely still feel lightheaded stay. Take your time when you are getting up and move slowly. Follow-up with your PCP this week for a recheck of your symptoms. you may need to have your labs rechecked. Please return to the ER should yours symptoms change or worsen. - My Orders Last 24 Hours: My Active Orders 07/10/18 11:24 EKG 12 Lead [EKG Documentation Completion] [RC] STAT Peripheral IV Care [RC] . DIRECTED Peripheral IV Insertion Adult [OM.PC] Routine 07/10/18 11:39 Cardiac Monitoring [RC] . DIRECTED 07/10/18 11:50 DRUG SCREEN, URINE [URCHEM] Stat UA W/MICROSCOPIC [URIN] Stat - Assessment/Plan Last 24 Hours: My Active Orders 07/10/18 11:24 EKG 12 Lead [EKG Documentation Completion] [RC] STAT Peripheral IV Care [RC] . DIRECTED Peripheral IV Insertion Adult [OM.PC] Routine 07/10/18 11:39 Cardiac Monitoring [RC] . DIRECTED 07/10/18 11:50 DRUG SCREEN, URINE [URCHEM] Stat UA W/MICROSCOPIC [URIN] Stat
--- NOTE | 2018-07-10 12:03 | CT ---
Head CT Technique: Multiple axial sections through the brain were obtained. Intravenous contrast was not utilized. Comparison: Previous head CT study of 11/17/17. Findings: Ventricles along with basal cisterns and sulci over convexities are mildly prominent. No abnormal parenchymal densities are seen. No evidence of intracranial hemorrhage. No midline shift or mass effect is seen. Slight atherosclerotic calcification is seen within the right vertebral artery. No acute calvarial abnormality is appreciated. Minimal sinus findings are seen within the right maxillary sinus which are incidental. Impression: 1. Incidental findings. Nothing acute is appreciated on noncontrast head CT study. Diagnostic code #2
[2018-07-10] MEDS ORDERED: Acetaminophen 325 MG Tab PO ONE (12:11)
--- NOTE | 2018-07-10 12:11 | CR ---
Chest: Portable view of the chest was obtained. Comparison: Prior chest x-ray of 06/30/18. Heart size and mediastinum are normal. Prior sternotomy is noted. Lungs are clear without acute parenchymal change. Bony structures are grossly intact. Impression: 1. Nothing acute is seen on portable chest x-ray. Diagnostic code #1
== END 2018-07-10 15:50 | disposition home or self-care (01) ==
LOC: JD.ED 11:18
DX: I95.9 Hypotension, unspecified (principal); E86.0 Dehydration; E11.9 Type 2 diabetes mellitus without complications; I10 Essential (primary) hypertension; E78.00 Pure hypercholesterolemia, unspecified; J44.9 Chronic obstructive pulmonary disease, unspecified; Z79.84 Long term (current) use of oral hypoglycemic drugs
CPT/HCPCS: 36415; 70450; 71045; 80053; 80306; 81001; 82553; 83690; 83880; 84484; 85025; 85379; 85610; 85730; 93005; 96360; 96361; 99285; A9270; G0480; J7040; J7050; 93010; 99284

== ENCOUNTER 2018-12-13 14:50 | Emergency (ER) | payer MEDICARE, MEDICAID ==
[2018-12-13 15:04] VITALS: BP 139/89
[2018-12-13] MEDS ORDERED: Acetaminophen/oxyCODONE 325-5 MG Tab PO ONE (15:25)
[2018-12-13] MEDS ORDERED: Sodium Chloride 0.9% 10 ML Syringe FLUSH PRN (15:25)
[2018-12-13] MEDS ORDERED: Doxycycline 100 MG Cap PO ONE (16:35)
--- NOTE | 2018-12-13 16:40 | EDM.PDOC ---
ED HPI GENERAL MEDICAL PROBLEM - General Chief Complaint: Chest Pain Stated Complaint: CHEST PAIN Time Seen by Provider: 12/13/18 15:00 Source of Information: Reports: Patient, RN Notes Reviewed - History of Present Illness INITIAL COMMENTS - FREE TEXT/NARRATIVE: 58-year-old male has had increasing cough congestion mild sore throat for the last several days. Today he is also having anterior chest tightness. He feels more short of breath than usual. He had some pain going to his jaw earlier this past morning not present at this time. He does have history of prior bypass surgery. He is type II diabetic. His coughing up mostly clear colored phlegm but occasionally colored phlegm as well. He's had some chills but no definite fever. Chest Pain Score (Numeric/FACES): 8 - Related Data Allergies Allergy/AdvReac Type Severity Reaction Status Date / Time No Known Allergies Allergy Verified 07/10/18 11:26 Home Meds: Home Meds metFORMIN [Glucophage XR] 500 mg PO DAILY 03/28/17 [History] Diclofenac Sodium [Voltaren] 1 applic TOP TID PRN 01/04/18 [History] LORazepam [Ativan] 2 mg PO DAILY 03/29/18 [History] Acetaminophen/oxyCODONE [Percocet 325-10 MG] 1 tab PO Q6H PRN 07/10/18 [History] Clopidogrel Bisulfate [Clopidogrel] 75 mg PO DAILY 07/10/18 [History] Isosorbide Mononitrate [Isosorbide Mononitrate ER] 120 mg PO DAILY 07/10/18 [ History] Lisinopril 10 mg PO DAILY 07/10/18 [History] Metoprolol Succinate 50 mg PO BID 07/10/18 [History] Pantoprazole Sodium 40 mg PO DAILY 07/10/18 [History] Pregabalin [Lyrica] 100 mg PO TID 07/10/18 [History] Rosuvastatin Calcium 20 mg PO DAILY 07/10/18 [History] Aspirin [Halfprin] 81 mg PO BID 12/13/18 [History] Doxycycline [Vibramycin] 100 mg PO BID #14 cap 12/13/18 [Rx] Past Medical History HEENT History: Reports: Hard of Hearing, Impaired Vision, Other (See Below) Other HEENT History: hard of hearing Cardiovascular History: Reports: Bypass, CAD, High Cholesterol, Hypertension, Stents, Other (See Below) Other Cardiovascular History: Triple Bypass in November 2012, perpipheral vascular disease; 2 stents of Oct 2016: total of 9 stents. Respiratory History: Reports: Asthma, COPD, Sleep Apnea, SOB Gastrointestinal History: Reports: Colon Polyp, GERD, GI Bleed, Helicobacter Pylori, Inflammatory Bowel Disease, PUD, Other (See Below) Other Gastrointestinal History: tubular adenoma, constipation, PUD Genitourinary History: Reports: BPH, Prostate Disorder ERP PM History: Reports: None Musculoskeletal History: Reports: Arthritis, Back Pain, Chronic, RA Other Musculoskeletal History: compression fracture, chronic pain, lumbar degenerative disc disease, polyarthraliga, sternum pain Neurological History: Reports: None Psychiatric History: Reports: None Endocrine/Metabolic History: Reports: Diabetes, Type II, Other (See Below) Other Endocrine/Metabolic History: hyperglycemia Hematologic History: Reports: None Immunologic History: Reports: None Oncologic (Cancer) History: Reports: None Dermatologic History: Reports: Other (See Below) Other Dermatologic History: sebaceous cyst - Infectious Disease History Infectious Disease History: Reports: Chicken Pox, Measles - Past Surgical History Cardiovascular Surgical History: Reports: Coronary Artery Bypass, Coronary Artery Stent Musculoskeletal Surgical History: Reports: Other (See Below) Social & Family History - Family History Family Medical History: Noncontributory - Tobacco Use Smoking Status *Q: Current Every Day Smoker Years of Tobacco use: 47 Packs/Tins Daily: 0.5 - Caffeine Use Caffeine Use: Reports: Coffee - Recreational Drug Use Recreational Drug Use: No - Living Situation & Occupation Living situation: Reports: Occupation: Unemployed ED ROS GENERAL - Review of Systems Review Of Systems: See Below Constitutional: Reports: Chills. Denies: Fever, Diaphoresis HEENT: Reports: Throat Pain Respiratory: Reports: Shortness of Breath Cardiovascular: Reports: Chest Pain GI/Abdominal: Denies: Abdominal Pain, Nausea, Vomiting Musculoskeletal: Denies: Neck Pain, Shoulder Pain Skin: Denies: Rash Neurological: Reports: Dizziness. Denies: Headache ED EXAM, GENERAL - Physical Exam Exam: See Below General Appearance: Alert, No Apparent Distress Eye Exam: Bilateral Eye: PERRL Throat/Mouth: Normal Inspection Neck: Supple Respiratory/Chest: No Respiratory Distress, Lungs Clear, Normal Breath Sounds Cardiovascular: Regular Rate, Rhythm GI/Abdominal: Soft, Non-Tender Extremities: Normal Inspection. No: Pedal Edema, Leg Pain Neurological: Alert, Oriented, No Motor/Sensory Deficits Skin Exam: Warm, Dry, Normal Color EKG INTERPRETATION EKG Date: 12/13/18 Rhythm: NSR P-Wave: Present QRS: Normal ST-T: Normal Course - Vital Signs Last Recorded V/S: Last Vital Signs Temp 97.1 F 12/13/18 14:57 Pulse 99 12/13/18 14:57 Resp 16 12/13/18 14:57 BP 139/89 12/13/18 14:57 Pulse Ox 98 12/13/18 14:57 - Orders/Labs/Meds Orders: Active Orders 24 hr Category Date Time Status EKG 12 Lead [EKG Documentation Completion] [RC] STAT Care 12/13/18 15:25 Active Peripheral IV Care [RC] . DIRECTED Care 12/13/18 15:25 Active Chest 1V Frontal [CR] Stat Exams 12/13/18 15:25 Taken Peripheral IV Insertion Adult [OM.PC] Stat Oth 12/13/18 15:25 Ordered Labs: Laboratory Tests 12/13/18 12/13/18 Range/Units 15:10 15:10 WBC 13.08 H (4.23-9.07) K/mm3 RBC 4.17 L (4.63-6.08) M/mm3 Hgb 13.0 L (13.7-17.5) gm/L Hct 39.0 L (40.1-51.0) % MCV 93.5 H (79.0-92.2) fl MCH 31.2 (25.7-32.2) pg MCHC 33.3 (32.2-35.5) g/dl RDW Std Deviation 44.0 H (35.1-43.9) fL Plt Count 332 (163-337) K/mm3 MPV 9.2 L (9.4-12.3) fl Neut % (Auto) 70.7 H (34.0-67.9) % Lymph % (Auto) 20.0 L (21.8-53.1) % [place] % (Auto) 7.3 (5.3-12.2) % Eos % (Auto) 1.3 (0.8-7.0) Baso % (Auto) 0.2 (0.1-1.2) % Neut # (Auto) 9.24 H (1.78-5.38) K/mm3 Lymph # (Auto) 2.61 (1.32-3.57) K/mm3 [place] # (Auto) 0.96 H (0.30-0.82) K/mm3 Eos # (Auto) 0.17 (0.04-0.54) K/mm3 Baso # (Auto) 0.03 (0.01-0.08) K/mm3 Manual Slide Review Normal smear Sodium 135 L (136-145) mEq/L Potassium 4.3 (3.5-5.1) mEq/L Chloride 101 (98-107) mEq/L Carbon Dioxide 22 (21-32) mEq/L Anion Gap 16.3 H (5-15) BUN 18 (7-18) mg/dL Creatinine 1.3 (0.7-1.3) mg/dL Est Cr Clr Drug Dosing 71.71 mL/min Estimated GFR (MDRD) 57 (>60) mL/min BUN/Creatinine Ratio 13.8 L (14-18) Glucose 139 H (74-106) mg/dL Calcium 8.6 (8.5-10.1) mg/dL Total Bilirubin 0.3 (0.2-1.0) mg/dL AST 19 (15-37) U/L ALT 33 (16-63) U/L Alkaline Phosphatase 83 (46-116) U/L Troponin I < 0.017 (0.00-0.056) ng/mL Total Protein 7.4 (6.4-8.2) g/dl Albumin 3.4 (3.4-5.0) g/dl Globulin 4.0 gm/dL Albumin/Globulin Ratio 0.9 L (1-2) Meds: Medications Discontinued Medications Generic Name Dose Route Start Last Admin Trade Name Freq PRN Reason Stop Dose Admin Doxycycline Hyclate 100 mg 12/13/18 16:35 12/13/18 16:57 Vibramycin PO 12/13/18 16:36 100 mg ONETIME ONE Administration Oxycodone/Acetaminophen 1 tab 12/13/18 15:25 12/13/18 15:35 Percocet 325-5 Mg PO 12/13/18 15:26 1 tab ONETIME ONE Administration Sodium Chloride 10 ml 12/13/18 15:25 12/13/18 15:36 Saline Flush FLUSH 10 ml ASDIRECTED PRN Administration Keep Vein Open - Re-Assessments/Exams Free Text/Narrative Re-Assessment/Exam: 12/13/18 16:39 Chest x-ray normal, troponin normal, white blood count very mildly elevated. Discharge instructions as documented. Departure - Departure Time of Disposition: 16:40 Disposition: Home, Self-Care 01 Condition: Fair Clinical Impression: Atypical chest pain, Bronchitis Prescriptions: Doxycycline [Vibramycin] 100 mg PO BID #14 cap Instructions: Acute Bronchitis, Adult, [id number] Referrals: Danny Espino MD [Primary Care Provider] - Forms: ED Department Discharge Additional Instructions: Rest, continue current medications as prescribed, doxycycline 100 mg twice daily for 1 week or until gone, follow-up with Dr. Espino if not much better within 4-5 days as expected, return to ED as needed if symptoms worsening in any way. - My Orders Last 24 Hours: My Active Orders 12/13/18 15:25 EKG 12 Lead [EKG Documentation Completion] [RC] STAT Peripheral IV Care [RC] . DIRECTED Chest 1V Frontal [CR] Stat Peripheral IV Insertion Adult [OM.PC] Stat - Assessment/Plan Last 24 Hours: My Active Orders 12/13/18 15:25 EKG 12 Lead [EKG Documentation Completion] [RC] STAT Peripheral IV Care [RC] . DIRECTED Chest 1V Frontal [CR] Stat Peripheral IV Insertion Adult [OM.PC] Stat
--- NOTE | 2018-12-14 06:51 | CR ---
Chest: Portable view of the chest was obtained. Comparison: Prior chest x-ray of 07/10/18. Heart size and mediastinum are within normal limits for portable technique. Previous sternotomy is seen. Lungs are clear with no acute parenchymal change. Bony structures are grossly intact. Impression: 1. Nothing acute is seen on portable chest x-ray. Diagnostic code #2
== END 2018-12-13 17:00 | disposition home or self-care (01) ==
LOC: JD.ED 14:50
DX: R07.89 Other chest pain (principal); J40 Bronchitis, not specified as acute or chronic; I25.10 Atherosclerotic heart disease of native coronary artery without angina pectoris; Z95.1 Presence of aortocoronary bypass graft; I10 Essential (primary) hypertension; E78.00 Pure hypercholesterolemia, unspecified; J44.9 Chronic obstructive pulmonary disease, unspecified; E11.9 Type 2 diabetes mellitus without complications; F17.210 Nicotine dependence, cigarettes, uncomplicated; Z95.5 Presence of coronary angioplasty implant and graft; Z79.84 Long term (current) use of oral hypoglycemic drugs; Z79.899 Other long term (current) drug therapy; Z79.01 Long term (current) use of anticoagulants
CPT/HCPCS: 36415; 71045; 80053; 84484; 85025; 93005; 99285; A9270

== ENCOUNTER 2020-01-17 13:39 | Emergency (ER) | payer MEDICARE, MEDICAID ==
--- NOTE | 2020-01-17 14:23 | EDM.PDOC ---
ED HPI GENERAL MEDICAL PROBLEM - General Chief Complaint: Cardiovascular Problem Stated Complaint: ABD PAIN AND CHEST PAIN Time Seen by Provider: 01/17/20 14:21 - History of Present Illness INITIAL COMMENTS - FREE TEXT/NARRATIVE: 59-year-old male presents the emergency room with left arm pain and upper abdominal pain. This started on Monday. The patient has significant history of type 2 diabetes atherosclerotic cardiovascular disease including 9 stents placed in 2012. 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 Patient has a history of gastric and esophageal ulcers. The patient' s insurance stopped paying for his ranitidine and omeprazole. Patient has left distal forearm pain in the flexor surface almost to the wrist he has a sharp sensation and there. The patient states that when he had his heart attack he had pain in his wrist on the left side that was very sharp similar to this. Lower Mid-Anterior Chest Pain Score (Numeric/FACES): 8 Bilateral Anterior Abdomen Pain Score (Numeric/FACES): 9 - Related Data Allergies Allergy/AdvReac Type Severity Reaction Status Date / Time No Known Allergies Allergy Verified 07/10/18 11:26 Home Meds: Home Meds Diclofenac Sodium [Voltaren] 1 applic TOP TID PRN 01/04/18 [History] LORazepam [Ativan] 2 mg PO DAILY 03/29/18 [History] Acetaminophen/oxyCODONE [Percocet 325-10 MG] 1 tab PO Q6H PRN 07/10/18 [History] Clopidogrel Bisulfate [Clopidogrel] 75 mg PO DAILY 07/10/18 [History] Isosorbide Mononitrate [Isosorbide Mononitrate ER] 120 mg PO DAILY 07/10/18 [ History] Lisinopril 10 mg PO DAILY 07/10/18 [History] Metoprolol Succinate 50 mg PO BID 07/10/18 [History] Pantoprazole Sodium 40 mg PO DAILY 07/10/18 [History] Pregabalin [Lyrica] 100 mg PO TID 07/10/18 [History] Rosuvastatin Calcium 20 mg PO DAILY 07/10/18 [History] Aspirin [Halfprin] 81 mg PO BID 12/13/18 [History] Doxycycline [Vibramycin] 100 mg PO BID #14 cap 12/13/18 [Rx] Omeprazole 20 mg PO Q12H #60 capsule. 01/17/20 [Rx] Sucralfate 1 gm PO ASDIRECTED #24 tablet 01/17/20 [Rx] Past Medical History HEENT History: Reports: Hard of Hearing, Impaired Vision, Other (See Below) Other HEENT History: hard of hearing Cardiovascular History: Reports: Bypass, CAD, High Cholesterol, Hypertension, Stents, Other (See Below) Other Cardiovascular History: Triple Bypass in November 2012, perpipheral vascular disease; 2 stents of Oct 2016: total of 9 stents. 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 Musculoskeletal History: Reports: Arthritis, Back Pain, Chronic, RA Other Musculoskeletal History: compression fracture, chronic pain, lumbar degenerative disc disease, polyarthraliga, sternum pain Neurological History: Reports: None Psychiatric History: Reports: None Endocrine/Metabolic History: Reports: Diabetes, Type II, Other (See Below) Other Endocrine/Metabolic History: hyperglycemia Hematologic History: Reports: None Immunologic History: Reports: None Oncologic (Cancer) History: Reports: None Dermatologic History: Reports: Other (See Below) Other Dermatologic History: sebaceous cyst - Infectious Disease History Infectious Disease History: Reports: Chicken Pox, Measles - Past Surgical History Cardiovascular Surgical History: Reports: Coronary Artery Bypass, Coronary Artery Stent Musculoskeletal Surgical History: Reports: Other (See Below) Social & Family History - Family History Family Medical History: Noncontributory - Caffeine Use Caffeine Use: Reports: Coffee - Living Situation & Occupation Living situation: Reports: Occupation: Unemployed ED ROS GENERAL - Review of Systems Review Of Systems: See Below Constitutional: Reports: No Symptoms HEENT: Reports: No Symptoms Respiratory: Reports: No Symptoms Cardiovascular: Reports: Other (Distal left arm pain suspicious for the same pain he had when he had his heart attack). Denies: Chest Pain GI/Abdominal: Reports: Abdominal Pain. Denies: No Symptoms, Black Stool, Bloody Stool, Constipation, Diarrhea : Reports: No Symptoms Musculoskeletal: Reports: No Symptoms Skin: Reports: No Symptoms Neurological: Reports: No Symptoms Psychiatric: Reports: No Symptoms Hematologic/Lymphatic: Reports: No Symptoms ED EXAM, GENERAL - Physical Exam Exam: See Below Exam Limited By: No Limitations General Appearance: Alert, No Apparent Distress Head: Atraumatic, Normocephalic Neck: Normal Inspection, Supple, Non-Tender, Full Range of Motion. No: Lymphadenopathy (L), Lymphadenopathy (R) Respiratory/Chest: No Respiratory Distress, Lungs Clear, Normal Breath Sounds Cardiovascular: Regular Rate, Rhythm, No Edema, No Murmur GI/Abdominal: Normal Bowel Sounds, Soft, Non-Tender Back Exam: Normal Inspection. No: CVA Tenderness (L), CVA Tenderness (R) Extremities: Normal Inspection, No Pedal Edema Neurological: Alert, Oriented, Normal Cognition Skin Exam: Warm, Dry, Intact Course - Vital Signs Last Recorded V/S: Last Vital Signs Temp 36.4 C 01/17/20 13:50 Pulse 98 01/17/20 16:15 Resp 19 01/17/20 16:15 BP 98/78 01/17/20 16:15 Pulse Ox 98 01/17/20 16:15 - Orders/Labs/Meds Orders: Active Orders 24 hr Category Date Time Status EKG Documentation Completion [RC] ASDIRECTED Care 01/17/20 14:08 Active Chest 1V Frontal [CR] Stat Exams 01/17/20 14:37 Taken fentaNYL [Sublimaze] Med 01/17/20 17:24 Once 50 mcg IVPUSH ONETIME ONE fentaNYL [Sublimaze] Med 01/17/20 17:24 Once 50 mcg IVPUSH ONETIME ONE EKG 12 Lead [EK] Stat Ther 01/17/20 14:07 Ordered Medication Orders Fentanyl (Sublimaze) 50 mcg IVPUSH ONETIME ONE Stop: 01/17/20 17:25 Labs: Laboratory Tests 01/17/20 01/17/20 01/17/20 Range/Units 14:21 14:21 14:21 WBC 5.77 (4.23-9.07) K/mm3 RBC 4.81 (4.63-6.08) M/mm3 Hgb 14.6 D (13.7-17.5) gm/dl Hct 43.9 (40.1-51.0) % MCV 91.3 (79.0-92.2) fl MCH 30.4 (25.7-32.2) pg MCHC 33.3 (32.2-35.5) g/dl RDW Std Deviation 49.5 H (35.1-43.9) fL Plt Count 293 (163-337) K/mm3 MPV 9.3 L (9.4-12.3) fl Neut % (Auto) 60.3 (34.0-67.9) % Lymph % (Auto) 29.1 (21.8-53.1) % [place] % (Auto) 8.3 (5.3-12.2) % Eos % (Auto) 1.7 (0.8-7.0) Baso % (Auto) 0.3 (0.1-1.2) % Neut # (Auto) 3.47 (1.78-5.38) K/mm3 Lymph # (Auto) 1.68 (1.32-3.57) K/mm3 [place] # (Auto) 0.48 (0.30-0.82) K/mm3 Eos # (Auto) 0.10 (0.04-0.54) K/mm3 Baso # (Auto) 0.02 (0.01-0.08) K/mm3 PT 10.9 (9.7-12.0) SECONDS INR 1.00 APTT 30 (22-31) SECONDS Sodium 134 L (136-145) mEq/L Potassium 4.1 (3.5-5.1) mEq/L Chloride 98 (98-107) mEq/L Carbon Dioxide 22 (21-32) mEq/L Anion Gap 18.1 H (5-15) BUN 39 H (7-18) mg/dL Creatinine 3.3 H D (0.7-1.3) mg/dL Est Cr Clr Drug Dosing 27.91 mL/min Estimated GFR (MDRD) 19 (>60) mL/min BUN/Creatinine Ratio 11.8 L (14-18) Glucose 166 H (74-106) mg/dL Calcium 8.4 L (8.5-10.1) mg/dL Total Bilirubin 0.4 (0.2-1.0) mg/dL AST 24 (15-37) U/L ALT 43 (16-63) U/L Alkaline Phosphatase 82 (46-116) U/L Troponin I < 0.017 (0.00-0.056) ng/mL Total Protein 8.2 (6.4-8.2) g/dl Albumin 3.8 (3.4-5.0) g/dl Globulin 4.4 gm/dL Albumin/Globulin Ratio 0.9 L (1-2) Lipase 162 (73-393) U/L Meds: Medications Generic Name Dose Route Start Last Admin Trade Name Freq PRN Reason Stop Dose Admin Fentanyl 50 mcg 01/17/20 17:24 Sublimaze IVPUSH 01/17/20 17:25 ONETIME ONE Discontinued Medications Generic Name Dose Route Start Last Admin Trade Name Freq PRN Reason Stop Dose Admin Al Hydroxide/Mg Hydroxide 30 0 ml 01/17/20 14:36 01/17/20 14:51 ml/ Lidocaine HCl 15 ml PO 01/17/20 14:37 45 ml ONETIME ONE Administration Hydromorphone HCl 0.5 mg 01/17/20 16:41 Dilaudid IVPUSH 01/17/20 16:42 ONETIME ONE Pantoprazole Sodium 40 mg 01/17/20 16:40 01/17/20 16:48 Protonix Iv IVPUSH 01/17/20 16:41 40 mg ONETIME ONE Administration Sucralfate 1 gm 01/17/20 16:40 01/17/20 16:47 Carafate PO 01/17/20 16:41 1 gm ONETIME ONE Administration - Re-Assessments/Exams Free Text/Narrative Re-Assessment/Exam: 01/17/20 17:25 Evaluation is basically unremarkable EKG is unchanged from priors he is got what looks like an interventricular conduction delay nondiagnostic ST depression from V2 to V6. This was compared to 12/13/2018 without significant change. The patient had a GI cocktail with some improvement not complete but this was short-lived. He was then had good relief with Carafate and was given IV Protonix. We will restart him on PPI therapy and Carafate for a week. The patient would like to go home at this point. Did offer observation. Departure - Departure Time of Disposition: 17:56 Disposition: Home, Self-Care 01 Clinical Impression: Dyspepsia, GERD (gastroesophageal reflux disease) Prescriptions: Omeprazole 20 mg PO Q12H #60 capsule. Sucralfate 1 gm PO ASDIRECTED #24 tablet Referrals: Danny Espino MD [Primary Care Provider] - Forms: ED Department Discharge Additional Instructions: Return to the emergency room with any questions problems or worsening symptoms. Take the omeprazole 20 mg 60 minutes before your morning and evening meals while taking the Carafate after you complete the Carafate take it 30 to 60 minutes before meals. Take your other medications at least 1 hour before the Carafate or 2 hours after the Carafate. Follow-up with your regular physician in 1 week Sepsis Event Note - Evaluation Sepsis Screening Result: No Definite Risk - Focused Exam Vital Signs: Vital Signs Temp Pulse Pulse Resp BP BP BP 01/17/20 16:15 98 19 98/78 01/17/20 16:14 98 18 01/17/20 16:01 96 15 88/68 L 01/17/20 16:00 95 18 01/17/20 15:46 100 16 108/66 01/17/20 15:45 96 19 01/17/20 15:31 94 22 H 109/64 01/17/20 15:30 94 22 H 01/17/20 15:16 97 20 95/66 01/17/20 15:15 98 16 01/17/20 15:01 95 20 92/71 01/17/20 15:00 95 16 01/17/20 14:46 94 24 H 98/65 01/17/20 14:45 92 18 01/17/20 14:32 97 24 H 110/61 01/17/20 14:31 96 24 H 01/17/20 14:01 96 20 91/66 01/17/20 14:00 93 22 H 01/17/20 13:52 93 18 94/68 01/17/20 13:51 93 17 01/17/20 13:50 36.4 C 94 94 14 88/64 L 88/64 L 94/68 01/17/20 13:49 94 6 L 01/17/20 13:48 97 93/67 01/17/20 13:47 93 Pulse Ox 01/17/20 16:15 98 01/17/20 16:14 98 01/17/20 16:01 94 L 01/17/20 16:00 95 01/17/20 15:46 95 01/17/20 15:45 95 01/17/20 15:31 95 01/17/20 15:30 94 L 01/17/20 15:16 94 L 01/17/20 15:15 95 01/17/20 15:01 94 L 01/17/20 15:00 95 01/17/20 14:46 95 01/17/20 14:45 94 L 01/17/20 14:32 97 01/17/20 14:31 96 01/17/20 14:01 95 01/17/20 14:00 96 01/17/20 13:52 94 L 01/17/20 13:51 97 01/17/20 13:50 97 01/17/20 13:49 96 01/17/20 13:48 97 01/17/20 13:47 95 Date Exam was Performed: 01/17/20 Time Exam was Performed: 17:25 - My Orders Last 24 Hours: My Active Orders 01/17/20 14:07 EKG 12 Lead [EK] Stat 01/17/20 14:08 EKG Documentation Completion [RC] ASDIRECTED 01/17/20 14:37 Chest 1V Frontal [CR] Stat 01/17/20 17:24 fentaNYL [Sublimaze] 50 mcg IVPUSH ONETIME ONE fentaNYL [Sublimaze] 50 mcg IVPUSH ONETIME ONE - Assessment/Plan Last 24 Hours: My Active Orders 01/17/20 14:07 EKG 12 Lead [EK] Stat 01/17/20 14:08 EKG Documentation Completion [RC] ASDIRECTED 01/17/20 14:37 Chest 1V Frontal [CR] Stat 01/17/20 17:24 fentaNYL [Sublimaze] 50 mcg IVPUSH ONETIME ONE fentaNYL [Sublimaze] 50 mcg IVPUSH ONETIME ONE
[2020-01-17] MEDS ORDERED: Alum Hydrox/Mag Hydrox/Simeth 30 ML, Lidocaine 2% 15 ML PO ONE ×2 (14:36)
[2020-01-17] MEDS ORDERED: Sucralfate Suspension 1 GM/10 ML Cup PO ONE (16:40)
[2020-01-17] MEDS ORDERED: Pantoprazole 40 MG Vial IVPUSH ONE (16:40)
[2020-01-17] MEDS ORDERED: HYDROmorphone 0.5 MG/0.5 ML Syringe IVPUSH ONE (16:41)
[2020-01-17] MEDS ORDERED: fentaNYL 100 MCG/2 ML SDV IVPUSH ONE ×2 (17:24)
[2020-01-17 18:09] VITALS: BP 105/83; PULSE 103
--- NOTE | 2020-01-18 17:04 | CR ---
Chest: Portable view of the chest was obtained. Comparison: Prior chest x-ray of 12/13/18. Heart size and mediastinum are within normal limits for portable technique. Previous sternotomy is noted. Lungs are clear with no acute parenchymal change. Bony structures are grossly intact. Impression: 1. Findings as noted above. 2. Nothing acute is suspected on portable chest x-ray. Diagnostic code #2 This report was dictated in [place] Standard Time
== END 2020-01-17 18:10 | disposition home or self-care (01) ==
LOC: JD.ED 13:39
DX: K21.9 Gastro-esophageal reflux disease without esophagitis (principal); E11.9 Type 2 diabetes mellitus without complications; I10 Essential (primary) hypertension; Z79.899 Other long term (current) drug therapy; Z79.82 Long term (current) use of aspirin
CPT/HCPCS: 36415; 71045; 80053; 83690; 84484; 85025; 85610; 85730; 93005; 96374; 96375; 99284; A9270; C9113; J3010; 99283

== ENCOUNTER 2020-04-27 13:04 | Emergency (ER) | payer MEDICARE, MEDICAID ==
[2020-04-27 13:19] VITALS: BP 111/71; PULSE 116
--- NOTE | 2020-04-27 13:26 | EDM.PDOC ---
ED HPI GENERAL MEDICAL PROBLEM - General Chief Complaint: Chest Pain Stated Complaint: CHEST PAIN Time Seen by Provider: 04/27/20 13:20 Source of Information: Reports: Patient History Limitations: Reports: No Limitations - History of Present Illness INITIAL COMMENTS - FREE TEXT/NARRATIVE: 59-year-old male of [place] ancestry presents to the ED with reported left precordial chest pain rating up into his left mandible jaw areaLeft neck and into his left arm shoulder down to the elbow. He states this started 2 days ago on Monday, April 25. It is been persisting ever since. He still been able to eat and take his normal medications. Patient has an extensive history of coronary disease having had triple bypass and I believe [address] He is on baby aspirin and Plavix daily. Feels short of breath. Denies any pleuritic component to the pain. He has pain in his mid back since a fall several weeks ago and did have an MRI of his thoracic spine performed at [facility] about a week ago but he has not received the results.He does have a mild cough but not bringing up much in the way of sputum. No fever or chills. The patient has known severe gastroesophageal reflux disease and often wakes up in the night with stomach contents in his mouth causing him to choke. He is felt to have chronic esophagitis. Patient denies any recent changes to his medications. Onset: Gradual Onset Date: 04/25/20 Onset Time: 09:00 Duration: Day(s):, Constant (Left chest) Location: Reports: Chest (Precordial chest pain particular upper left anterior chest rating up into the left), Back (Has mid back pain between his shoulder blades for several weeks after a fall. This is being investigated. He had an MRI last week of which she has not received the results.), Upper Extremity, Left ( supraclavicular fossa left neck and mandible and into the left arm and shoulder down to the elbow.) Quality: Reports: Ache, Pressure, Other Severity: Moderate (Pain is described as a deep aching pressure discomfort. It is made worse by exertion. Only 7 out of 10) Improves with: Reports: Rest Worsens with: Reports: Movement (Walking makes it worse.) Associated Symptoms: Reports: Chest Pain, Cough, Malaise, Shortness of Breath, Weakness. Denies: Confusion, cough w sputum, Diaphoresis, Fever/Chills, Headaches, Loss of Appetite, Nausea/Vomiting, Rash, Seizure, Syncope Treatments PROSTHETICS ASSISTANT: Reports: Other (see below) Left Upper Anterior Chest Pain Score (Numeric/FACES): 10 - Related Data Allergies Allergy/AdvReac Type Severity Reaction Status Date / Time No Known Allergies Allergy Verified 04/27/20 13:18 Home Meds: Home Meds Diclofenac Sodium [Voltaren] 1 applic TOP TID PRN 01/04/18 [History] LORazepam [Ativan] 2 mg PO DAILY 03/29/18 [History] Acetaminophen/oxyCODONE [Percocet 325-10 MG] 1 tab PO Q6H PRN 07/10/18 [History] Clopidogrel Bisulfate [Clopidogrel] 75 mg PO DAILY 07/10/18 [History] Isosorbide Mononitrate [Isosorbide Mononitrate ER] 120 mg PO DAILY 07/10/18 [ History] Lisinopril 10 mg PO DAILY 07/10/18 [History] Metoprolol Succinate 50 mg PO BID 07/10/18 [History] Pantoprazole Sodium 40 mg PO DAILY 07/10/18 [History] Pregabalin [Lyrica] 300 mg PO BID 07/10/18 [History] Rosuvastatin Calcium 20 mg PO DAILY 07/10/18 [History] Aspirin [Halfprin] 81 mg PO BID 12/13/18 [History] Doxycycline [Vibramycin] 100 mg PO BID #14 cap 12/13/18 [Rx] Omeprazole 20 mg PO Q12H #60 capsule. 01/17/20 [Rx] Sucralfate 1 gm PO ASDIRECTED #24 tablet 01/17/20 [Rx] Dicyclomine [Bentyl] 20 mg PO Q6H PRN #20 tablet 04/27/20 [Rx] Famotidine [Pepcid AC] 20 mg PO BID #60 tablet 04/27/20 [Rx] Sucralfate 1 gm PO QIDACANDBED #400 ml 04/27/20 [Rx] Past Medical History HEENT History: Reports: Hard of Hearing, Impaired Vision, Other (See Below) Other HEENT History: hard of hearing Cardiovascular History: Reports: Bypass, CAD, High Cholesterol, Hypertension, Stents, Other (See Below) Other Cardiovascular History: Triple Bypass in November 2012, perpipheral vascular disease; 2 stents of Oct 2016: total of 9 stents. Respiratory History: Reports: Asthma, COPD, Sleep Apnea, SOB Gastrointestinal History: Reports: Colon Polyp, GERD, GI Bleed, Helicobacter Pylori, Inflammatory Bowel Disease, PUD, Other (See Below) Other Gastrointestinal History: tubular adenoma, constipation, PUD Genitourinary History: Reports: BPH, Prostate Disorder PAPER PATTERN FOLDER History: Reports: None Musculoskeletal History: Reports: Arthritis, Back Pain, Chronic, RA Other Musculoskeletal History: compression fracture, chronic pain, lumbar degenerative disc disease, polyarthraliga, sternum pain Neurological History: Reports: None Psychiatric History: Reports: None Endocrine/Metabolic History: Reports: Diabetes, Type II, Other (See Below) Other Endocrine/Metabolic History: hyperglycemia Hematologic History: Reports: None Immunologic History: Reports: None Oncologic (Cancer) History: Reports: None Dermatologic History: Reports: Other (See Below) Other Dermatologic History: sebaceous cyst - Infectious Disease History Infectious Disease History: Reports: Chicken Pox, Measles - Past Surgical History Cardiovascular Surgical History: Reports: Coronary Artery Bypass, Coronary Artery Stent Musculoskeletal Surgical History: Reports: Other (See Below) Social & Family History - Family History Family Medical History: Noncontributory - Caffeine Use Caffeine Use: Reports: Coffee - Living Situation & Occupation Living situation: Reports: Occupation: Unemployed ED ROS GENERAL - Review of Systems Review Of Systems: See Below Constitutional: Reports: Malaise, Weakness, Fatigue, Decreased Appetite. Denies : Fever, Chills, Weight Loss HEENT: Reports: No Symptoms Respiratory: Reports: Shortness of Breath, Cough. Denies: Wheezing, Pleuritic Chest Pain, Sputum Cardiovascular: Reports: Chest Pain, Blood Pressure Problem, Dyspnea on Exertion ( Patient will edema of the left lower extremity), Edema (Precordial chest pain for the last 2-1/2 days.), Lightheadedness (He runs too low.), Orthopnea. Denies: Claudication, Palpitations Endocrine: Reports: Fatigue GI/Abdominal: Reports: Other (And suffers from severe gastroesophageal reflux disease with brash water reflux into his throat and mouth often during the night.). Denies: Constipation, Diarrhea, Decreased Appetite, Difficulty Swallowing, Distension, Flatus, Hematemesis, Hematochezia, Melena : Reports: Frequency, Other (Nocturia usually x1 or 2) Musculoskeletal: Reports: Back Pain (Both mid thoracic back pain from a recent fall as well as a diffuse low back pain.) Skin: Reports: Bruising (Bruises easily due to being on) Neurological: Reports: No Symptoms ( aspirin and Plavix.) Psychiatric: Reports: No Symptoms Hematologic/Lymphatic: Reports: No Symptoms Immunologic: Reports: No Symptoms ED EXAM, GENERAL - Physical Exam Exam: See Below Exam Limited By: No Limitations General Appearance: Alert, WD/WN, No Apparent Distress, Other (Temperature is 36.2. Heart rate 116 and sinus on the monitor. Respiratory 16 with O2 sats of 95% room air.. Initial BP was 111/71. He did come down to 103/68.) Eye Exam: Bilateral Eye: Normal Inspection (No blepharal pallor or scleral icterus.), PERRL Throat/Mouth: Normal Inspection, Normal Lips, Normal Oropharynx, Other Head: Atraumatic, Normocephalic (Tongue and oropharynx are moist.) Neck: Normal Inspection, Supple, Non-Tender, Full Range of Motion. No: Carotid Bruit, Lymphadenopathy (L), Lymphadenopathy (R) Respiratory/Chest: No Respiratory Distress, No Accessory Muscle Use, Chest Non- Tender, Rhonchi (Has rhonchi through both posterior upper lung anderson and lower lung anderson on the right side.). No: Lungs Clear, Normal Breath Sounds, Rales, Wheezing Cardiovascular: Normal Peripheral Pulses, No Gallop, No Murmur, No Rub, Tachycardia (Is tachycardia 120/min.), Other (Well-healed midline sternotomy incision.) Peripheral Pulses: 2+: Carotid (L), Carotid (R), Posterior Tibial (L), Posterior Tibial (R), Dorsalis Pedis (L), Dorsalis Pedis (R) GI/Abdominal: Normal Bowel Sounds, Soft, Non-Tender, No Organomegaly, No Abnormal Bruit, No Mass, Pelvis Stable, Other (No hernias or surgical scars.) Back Exam: Normal Inspection, Decreased Range of Motion, Vertebral Tenderness. No: CVA Tenderness (L) (Some pain on sitting in his lower back.), CVA Tenderness (R) Extremities: Normal Inspection (Around the T6-T8 level is tender to touch in the midline.), Normal Range of Motion, Non-Tender, No Pedal Edema Neurological: Alert, Oriented, CN II-XII Intact, Normal Cognition Psychiatric: Normal Affect, Normal Mood Skin Exam: Warm, Dry, Intact, Normal Color, No Rash EKG INTERPRETATION EKG Date: 04/27/20 Time: 13:14 Rhythm: Other Rate (Beats/Min): 112 [place]: Normal P-Wave: Present (First-degree AV block) QRS: Other (There is marked early R wave transition consider right ventricular appeared to be versus septal hypertrophy pattern.) ST-T: Other (ST depression less than 0.5 mm in leads V2 to V4. Consider ischemia. T wave flattening in leads aVL nonspecific finding.) QT: Prolonged (Mildly prolonged) EKG Interpretation Comments: Abnormal ECG Course - Vital Signs Last Recorded V/S: Last Vital Signs Temp 36.2 C 04/27/20 13:13 Pulse 116 H 04/27/20 13:13 Resp 16 04/27/20 13:13 BP 111/71 04/27/20 13:13 Pulse Ox 95 04/27/20 13:13 - Orders/Labs/Meds Orders: Active Orders 24 hr Category Date Time Status EKG Documentation Completion [RC] STAT Care 04/27/20 13:30 Active Oxygen Therapy [RC] ASDIRECTED Care 04/27/20 13:30 Active URINALYSIS W/MICROSCOPIC [UA W/MICROSCOPIC] [URIN] Stat Lab 04/27/20 13:30 Ordered Sodium Chloride 0.9% [Normal Saline] 1,000 ml Med 04/27/20 15:15 Active IV ASDIRECTED Medication Orders Sodium Chloride (Normal Saline) 1,000 mls @ 250 mls/hr IV ASDIRECTED BRYCE Labs: Laboratory Tests 04/27/20 04/27/20 04/27/20 Range/Units 13:23 13:23 13:23 WBC 9.26 H (4.23-9.07) K/mm3 RBC 4.47 L (4.63-6.08) M/mm3 Hgb 13.7 (13.7-17.5) gm/dl Hct 42.0 (40.1-51.0) % MCV 94.0 H (79.0-92.2) fl MCH 30.6 (25.7-32.2) pg MCHC 32.6 (32.2-35.5) g/dl RDW Std Deviation 48.6 H (35.1-43.9) fL Plt Count 433 H D (163-337) K/mm3 MPV 9.3 L (9.4-12.3) fl Neut % (Auto) 68.2 H (34.0-67.9) % Lymph % (Auto) 23.0 (21.8-53.1) % [place] % (Auto) 6.2 (5.3-12.2) % Eos % (Auto) 2.1 (0.8-7.0) Baso % (Auto) 0.2 (0.1-1.2) % Neut # (Auto) 6.32 H (1.78-5.38) K/mm3 Lymph # (Auto) 2.13 (1.32-3.57) K/mm3 [place] # (Auto) 0.57 (0.30-0.82) K/mm3 Eos # (Auto) 0.19 (0.04-0.54) K/mm3 Baso # (Auto) 0.02 (0.01-0.08) K/mm3 PT 10.6 (9.7-12.0) SECONDS INR 0.97 APTT 29 (22-31) SECONDS Sodium 141 (136-145) mEq/L Potassium 3.8 (3.5-5.1) mEq/L Chloride 106 (98-107) mEq/L Carbon Dioxide 26 (21-32) mEq/L Anion Gap 12.8 (5-15) BUN 15 (7-18) mg/dL Creatinine 1.4 H D (0.7-1.3) mg/dL Est Cr Clr Drug Dosing 65.79 mL/min Estimated GFR (MDRD) 52 (>60) mL/min BUN/Creatinine Ratio 10.7 L (14-18) Glucose 201 H (74-106) mg/dL POC Glucose (70-105) mg/dL Hemoglobin A1c (4.50-6.20) % Calcium 8.8 (8.5-10.1) mg/dL Magnesium 1.9 (1.8-2.4) mg/dl Total Bilirubin 0.4 (0.2-1.0) mg/dL AST 14 L (15-37) U/L ALT 15 L (16-63) U/L Alkaline Phosphatase 87 (46-116) U/L CK-MB (CK-2) 0.6 (0-3.6) ng/ml Troponin I 0.046 (0.00-0.056) ng/mL C-Reactive Protein 3.0 H* (<1.0) mg/dL NT-Pro-B Natriuret Pep (0-125) pg/mL Total Protein 7.4 (6.4-8.2) g/dl Albumin 3.5 (3.4-5.0) g/dl Globulin 3.9 gm/dL Albumin/Globulin Ratio 0.9 L (1-2) 04/27/20 04/27/20 04/27/20 Range/Units 13:23 13:23 13:25 WBC (4.23-9.07) K/mm3 RBC (4.63-6.08) M/mm3 Hgb (13.7-17.5) gm/dl Hct (40.1-51.0) % MCV (79.0-92.2) fl MCH (25.7-32.2) pg MCHC (32.2-35.5) g/dl RDW Std Deviation (35.1-43.9) fL Plt Count (163-337) K/mm3 MPV (9.4-12.3) fl Neut % (Auto) (34.0-67.9) % Lymph % (Auto) (21.8-53.1) % [place] % (Auto) (5.3-12.2) % Eos % (Auto) (0.8-7.0) Baso % (Auto) (0.1-1.2) % Neut # (Auto) (1.78-5.38) K/mm3 Lymph # (Auto) (1.32-3.57) K/mm3 [place] # (Auto) (0.30-0.82) K/mm3 Eos # (Auto) (0.04-0.54) K/mm3 Baso # (Auto) (0.01-0.08) K/mm3 PT (9.7-12.0) SECONDS INR APTT (22-31) SECONDS Sodium (136-145) mEq/L Potassium (3.5-5.1) mEq/L Chloride (98-107) mEq/L Carbon Dioxide (21-32) mEq/L Anion Gap (5-15) BUN (7-18) mg/dL Creatinine (0.7-1.3) mg/dL Est Cr Clr Drug Dosing mL/min Estimated GFR (MDRD) (>60) mL/min BUN/Creatinine Ratio (14-18) Glucose (74-106) mg/dL POC Glucose 211 H (70-105) mg/dL Hemoglobin A1c 6.00 (4.50-6.20) % Calcium (8.5-10.1) mg/dL Magnesium (1.8-2.4) mg/dl Total Bilirubin (0.2-1.0) mg/dL AST (15-37) U/L ALT (16-63) U/L Alkaline Phosphatase (46-116) U/L CK-MB (CK-2) (0-3.6) ng/ml Troponin I (0.00-0.056) ng/mL C-Reactive Protein (<1.0) mg/dL NT-Pro-B Natriuret Pep 188 H (0-125) pg/mL Total Protein (6.4-8.2) g/dl Albumin (3.4-5.0) g/dl Globulin gm/dL Albumin/Globulin Ratio (1-2) Meds: Medications Generic Name Dose Route Start Last Admin Trade Name Freq PRN Reason Stop Dose Admin Sodium Chloride 1,000 mls @ 250 mls/hr 04/27/20 15:15 Normal Saline IV ASDIRECTED BRYCE Discontinued Medications Generic Name Dose Route Start Last Admin Trade Name Freq PRN Reason Stop Dose Admin Al Hydroxide/Mg Hydroxide 30 0 ml 04/27/20 13:50 04/27/20 14:25 ml/ Lidocaine HCl 15 ml PO 04/27/20 13:51 15 ml ONETIME ONE Administration Dicyclomine HCl 20 mg 04/27/20 16:16 Bentyl PO 04/27/20 16:17 ONETIME ONE Fentanyl 50 mcg 04/27/20 13:27 04/27/20 13:43 Sublimaze IVPUSH 04/27/20 13:28 50 mcg ONETIME ONE Administration Fentanyl 50 mcg 04/27/20 16:15 Sublimaze IVPUSH 04/27/20 16:16 ONETIME ONE Hydromorphone HCl 0.5 mg 04/27/20 14:59 04/27/20 15:14 Dilaudid IVPUSH 04/27/20 15:00 0.5 mg ONETIME ONE Administration Sodium Chloride 1,000 mls @ 125 mls/hr 04/27/20 13:30 04/27/20 13:43 Normal Saline IV 125 mls/hr ASDIRECTED BRYCE Administration Metoclopramide HCl 10 mg 04/27/20 13:29 04/27/20 13:43 Reglan IVPUSH 04/27/20 13:30 10 mg ONETIME ONE Administration Sucralfate 1 gm 04/27/20 13:50 04/27/20 14:29 Carafate PO 04/27/20 13:51 1 gm ONETIME ONE Administration - Radiology Interpretation Free Text/Narrative:: 59-year-old [place] male who presents to the ED with a 2-day history of left precordial chest pain rating up into the left supraclavicular fossa left lateral neck and mandible area. Also radiates into his left shoulder and down the medial aspect of his left arm to the elbow. He has pain between his shoulder blades but this is since a fall that he experienced about 3 to 4 weeks ago. Apparently had MRI of his thoracic spine last week at [facility] and has not yet heard of the results. On examination he is exhibiting a blood pressure of 101 systolic and therefore is not a candidate for nitroglycerin drip. He has an extensive history of coronary disease having had triple bypass and I believe 9 stents placement. He is on Plavix and aspirin daily. He also has a history of severe gastroesophageal reflux disease with brash water reflux up into his mouth and throat at nighttime quite often. This is believed to be a strong component of his chest pains at time as well. His lungs show rhonchi both upper lobes and left lower lobe. He has a mild cough but no sputum production. No fever or chills. He has no dependent edema. Benign abdominal exam. ECG reveals some slight ST segment depression in leads V2 to V4. Plan IV normal saline at 125 mils per hour. He was given fentanyl 50 mcg IV for pain relief with Reglan 10 mg. Also going to give him a GI cocktail. Will also be given sucralfate suspension 1 g p.o. Will await his cardiac enzymes. - Re-Assessments/Exams Free Text/Narrative Re-Assessment/Exam: 04/27/20 13:54 portable chest x-ray reveals borderline cardiomegaly. Slight prominence of the right pulmonary artery. There appears to be a right pericardial fat pad medial base of right lung. The lungs for the most part are clear. He has some chondrocalcinosis of his right upper second rib. Pleural effusions no pneumonia. 04/27/20 14:04 patient reports that he did get some relief from the fentanyl IV. His blood pressure is currently 82/65. He states that usually is around 95 systolic. However has dropped to 107 sinus tachycardia O2 sats remained 96% on room air. 04/27/20 14:11 White blood cell count is 9.26. Differential is 68% neutrophils on the auto differential. Hemoglobin is 13.7 with hematocrit of 42.0. MCV is 94.0 with a platelet count of 433,000 slightly elevated. Sodium is 141 with a potassium of 3.8. Chloride is 106 with a bicarb of 26. Anion gap is 12.8. BUN is 15 with a creatinine of 1.4. GFR is 52. Glucose is elevated at 201. He is not known to be diabetic although he was diagnosed with prediabetes in the past. Calcium is 8.8 magnesium is 1.9. Bilirubin is 0.4. AST is 14 with an ALT of 15. CK-MB fraction is 0.6 troponin I is less than 0.046. C-reactive protein is 3.0 BNP is 188. Total protein 7.4 with an albumin fraction of 3.5. Therefore there is no evidence of myocardial infarction. I will have a glycosylated protein ordered. Likely has a bit of bronchitis and this may be the reason that his CRP is mildly elevated. 04/27/20 14:59 Patient states he did get significant relief from the GI cocktail and sucralfate. Has some epigastric lower retrosternal chest discomfort and is requesting analgesia. I will proceed with Dilaudid 0.5 mg IV. Will also be given a bolus of IV fluid 250 mils. His BNP came back at 188. His hemoglobin A1c came back at 6.0 indicating he has not diabetic in spite of his elevated blood sugars upon arrival in the ED. Plan will be to discharge him home on sucralfate suspension 1 g 4 times daily half hour before meals and at bedtime. We will place him on Pepcid 20 mg twice daily in addition to his current medications for reflux disease as a clinically he has significant esophagitis causing his chest pain and referring up into his neck. 0 Departure - Departure Time of Disposition: 16:13 Disposition: Home, Self-Care 01 Reason for Transfer *Q: Other Condition: Fair Clinical Impression: Non-cardiac chest pain, Esophageal spasm, GERD with esophagitis Prescriptions: Dicyclomine [Bentyl] 20 mg PO Q6H PRN #20 tablet PRN Reason: Abdominal cramps/diarrhea Famotidine [Pepcid AC] 20 mg PO BID #60 tablet Sucralfate 1 gm PO QIDACANDBED #400 ml Instructions: Food Choices for Gastroesophageal Reflux Disease, Adult, Easy-to- Read, Esophageal Spasm Referrals: Danny Espino MD [Primary Care Provider] - Forms: ED Department Discharge Additional Instructions: Evaluation in the emergency room today in regards to a 2-day history of central chestLeft precordial chest pain rating up into the left side of the neck and jaw at times and also into the left shoulder and arm. Extensive past history of coronary artery disease with triple bypass and 9 stent placement. Work-up in the ED revealed no sign of heart attack with normal cardiac markers. Therefore current chest pain is not heart related. I suspect it is due to esophageal inflammation and spasm. It can mimic heart attack to his a Errol.. You are treated with intravenous fluids in the ED but her blood pressure would not allow for nitroglycerin treatment. Blood pressure is 85-95 systolic. This is due to the medications you take for your heart. You received pain medication fentanyl 50 mcg x 2 doses and and Dilaudid 0.5 mg IV x1 for relief of chest pain and muscle and esophageal spasm. Also Bentyl 20 mg was given by mouth before you left which will take about an hour to work but to be taken every 6 hours as needed for relief of chest pain. Suggest using Pepcid AC tablets twice daily with breakfast and supper for the next month to help lining the esophagus to heal. There is a good chance that you have ulceration of the lower portion of your food pipe which causes the spasm and referred pain up to the neck and throat. May use silk sucralfate suspension 10 mils or 1 g half hour before each meal and at bedtime for the next 10 days which will also help ulceration of the esophagus heal. Symptoms continue you will need to see someone who can perform an upper GI endoscopy to see if there is extensive ulceration of the lower food pipe. You are a high risk surgical candidate but a fundoplication of the stomach could be performed through a laparoscope which would eliminate your reflux disease and likely most of your chest pain. Up with your personal physician if symptoms persist. Sepsis Event Note - Evaluation Sepsis Screening Result: No Definite Risk - Focused Exam Vital Signs: Vital Signs Temp Pulse Resp BP Pulse Ox 04/27/20 13:13 36.2 C 116 H 16 111/71 95 Date Exam was Performed: 04/27/20 Time Exam was Performed: 16:20 - My Orders Last 24 Hours: My Active Orders 04/27/20 13:30 EKG Documentation Completion [RC] STAT Oxygen Therapy [RC] ASDIRECTED URINALYSIS W/MICROSCOPIC [UA W/MICROSCOPIC] [URIN] Stat 04/27/20 15:15 Sodium Chloride 0.9% [Normal Saline] 1,000 ml IV ASDIRECTED - Assessment/Plan Last 24 Hours: My Active Orders 04/27/20 13:30 EKG Documentation Completion [RC] STAT Oxygen Therapy [RC] ASDIRECTED URINALYSIS W/MICROSCOPIC [UA W/MICROSCOPIC] [URIN] Stat 04/27/20 15:15 Sodium Chloride 0.9% [Normal Saline] 1,000 ml IV ASDIRECTED
[2020-04-27] MEDS ORDERED: fentaNYL 100 MCG/2 ML SDV IVPUSH ONE ×2 (13:27→16:15)
[2020-04-27] MEDS ORDERED: Metoclopramide 10 MG/2 ML SDV IVPUSH ONE (13:29)
[2020-04-27] MEDS ORDERED: Sodium Chloride 0.9% 1,000 ML IV SCH ×2 (13:30→15:15)
[2020-04-27] MEDS ORDERED: Sucralfate 1 GM Tab PO ONE (13:50)
[2020-04-27] MEDS ORDERED: Alum Hydrox/Mag Hydrox/Simeth 30 ML, Lidocaine 2% 15 ML PO ONE ×2 (13:50)
--- NOTE | 2020-04-27 13:57 | CR ---
Chest: Portable view of the chest was obtained. Comparison: Prior chest x-ray of 01/17/20. Heart size and mediastinum are within normal limits for portable technique. Lungs show no acute parenchymal change. Prior sternotomy is noted. Impression: 1. Nothing acute is appreciated on portable chest x-ray. Diagnostic code #2 This report was dictated in MDT
[2020-04-27] MEDS ORDERED: HYDROmorphone 0.5 MG/0.5 ML Syringe IVPUSH ONE (14:59)
[2020-04-27] MEDS ORDERED: Dicyclomine 10 MG Cap PO ONE (16:16)
== END 2020-04-27 16:56 | disposition home or self-care (01) ==
LOC: JD.ED 13:04
DX: K21.0 Gastro-esophageal reflux disease with esophagitis (principal); K22.4 Dyskinesia of esophagus; I25.10 Atherosclerotic heart disease of native coronary artery without angina pectoris; E78.00 Pure hypercholesterolemia, unspecified; I10 Essential (primary) hypertension; J44.9 Chronic obstructive pulmonary disease, unspecified; K21.9 Gastro-esophageal reflux disease without esophagitis; M06.9 Rheumatoid arthritis, unspecified; E11.9 Type 2 diabetes mellitus without complications; Z79.899 Other long term (current) drug therapy; Z95.5 Presence of coronary angioplasty implant and graft; Z79.82 Long term (current) use of aspirin; Z79.02 Long term (current) use of antithrombotics/antiplatelets
CPT/HCPCS: 36415; 71045; 80053; 82553; 82962; 83036; 83735; 83880; 84484; 85025; 85610; 85730; 86140; 93005; 96361; 96374; 96375; 96376; 99285; A9270; J1170; J2765; J3010; J7030; 93010; 99283

== ENCOUNTER 2020-06-02 13:23 | Emergency (ER) | payer MEDICARE, MEDICAID ==
[2020-06-02 13:35] VITALS: BP 89/47; PULSE 87
[2020-06-02] MEDS ORDERED: Aspirin 81 MG Tab.Chew PO ONE (13:56)
[2020-06-02] MEDS ORDERED: Sodium Chloride 0.9% 1,000 ML IV ONE (13:56)
--- NOTE | 2020-06-02 14:14 | EDM.PDOC ---
<Radames Rodriguez - Last Filed: 06/02/20 14:00> ED HPI GENERAL MEDICAL PROBLEM - General Chief Complaint: Chest Pain Stated Complaint: CHEST PAIN Time Seen by Provider: 06/02/20 13:42 Source of Information: Reports: Patient History Limitations: Reports: No Limitations - History of Present Illness INITIAL COMMENTS - FREE TEXT/NARRATIVE: Emmett is a 59 YO male presenting to the ED for pain in the LUQ, chest, and right arm. Pain began at 2200 the evening prior in the LUQ and is being described as sharp, and stabbing. LUQ pain is rated at a 7 out of 10. This morning the pain started to radiate to the center of his chest and subsequently the right arm. Chest pain is described as a constant, crushing sensation and is rated at a 9 out of 10. Pain is similar to past cardiac episodes. He experienced an episode of dizziness when standing after the pain began. Admits to fatigue upon exertion for the past week. Extensive cardiac history of 3 vessel CABG X1 and stents X9 was noted with the last procedure being a year and a half ago. Associated symptoms dizziness and cough. Denies diaphoresis, nausea, vomiting, diarrhea, constipation, shortness of breath. Has taken ASA 81mg. No nitro was taken. Onset: Sudden Onset Date: 06/01/20 Onset Time: 22:00 Duration: Hour(s): Location: Reports: Chest, Abdomen, Upper Extremity, Right Quality: Reports: Pressure, Sharp, Stabbing Severity: Moderate Improves with: Reports: None Worsens with: Reports: None Associated Symptoms: Reports: Chest Pain, Cough. 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 Chest Pain Score (Numeric/FACES): 10 - Related Data Allergies Allergy/AdvReac Type Severity Reaction Status Date / Time No Known Allergies Allergy Verified 04/27/20 13:18 Home Meds: Home Meds Diclofenac Sodium [Voltaren] 1 applic TOP TID PRN 01/04/18 [History] LORazepam [Ativan] 2 mg PO DAILY 03/29/18 [History] Acetaminophen/oxyCODONE [Percocet 325-10 MG] 1 tab PO Q6H PRN 07/10/18 [History] Clopidogrel Bisulfate [Clopidogrel] 75 mg PO DAILY 07/10/18 [History] Isosorbide Mononitrate [Isosorbide Mononitrate ER] 120 mg PO DAILY 07/10/18 [History] Lisinopril 10 mg PO DAILY 07/10/18 [History] Metoprolol Succinate 50 mg PO BID 07/10/18 [History] Pantoprazole Sodium 40 mg PO DAILY 07/10/18 [History] Pregabalin [Lyrica] 300 mg PO BID 07/10/18 [History] Rosuvastatin Calcium 20 mg PO DAILY 07/10/18 [History] Aspirin [Halfprin] 81 mg PO BID 12/13/18 [History] Doxycycline [Vibramycin] 100 mg PO BID #14 cap 12/13/18 [Rx] Omeprazole 20 mg PO Q12H #60 capsule. 01/17/20 [Rx] Sucralfate 1 gm PO ASDIRECTED #24 tablet 01/17/20 [Rx] Dicyclomine [Bentyl] 20 mg PO Q6H PRN #20 tablet 04/27/20 [Rx] Famotidine [Pepcid AC] 20 mg PO BID #60 tablet 04/27/20 [Rx] Sucralfate 1 gm PO QIDACANDBED #400 ml 04/27/20 [Rx] Albuterol [Proventil HFA] 2 puff INH Q4H PRN #1 inhaler 06/02/20 [Rx] fentaNYL [Fentanyl] 1 each TD Q72H 06/02/20 [History] Past Medical History HEENT History: Reports: Hard of Hearing, Impaired Vision, Other (See Below) Other HEENT History: hard of hearing Cardiovascular History: Reports: Bypass, CAD, High Cholesterol, Hypertension, Stents, Other (See Below) Other Cardiovascular History: Triple Bypass in November 2012, perpipheral vascular disease; 2 stents of Oct 2016: total of 9 stents. Respiratory History: Reports: Asthma, COPD, Sleep Apnea, SOB Gastrointestinal History: Reports: Colon Polyp, GERD, GI Bleed, Helicobacter Pylori, Inflammatory Bowel Disease, PUD, Other (See Below) Other Gastrointestinal History: tubular adenoma, constipation, PUD Genitourinary History: Reports: BPH, Prostate Disorder CAFE HELPER History: Reports: None Musculoskeletal History: Reports: Arthritis, Back Pain, Chronic, RA Other Musculoskeletal History: compression fracture, chronic pain, lumbar degenerative disc disease, polyarthraliga, sternum pain Neurological History: Reports: None Psychiatric History: Reports: None Endocrine/Metabolic History: Reports: Diabetes, Type II, Other (See Below) Other Endocrine/Metabolic History: hyperglycemia Hematologic History: Reports: None Immunologic History: Reports: None Oncologic (Cancer) History: Reports: None Dermatologic History: Reports: Other (See Below) Other Dermatologic History: sebaceous cyst - Infectious Disease History Infectious Disease History: Reports: Chicken Pox, Measles - Past Surgical History Cardiovascular Surgical History: Reports: Coronary Artery Bypass, Coronary Artery Stent Musculoskeletal Surgical History: Reports: Other (See Below) Social & Family History - Family History Family Medical History: Noncontributory - Tobacco Use Smoking Status *Q: Current Every Day Smoker Years of Tobacco use: 50 Packs/Tins Daily: 1 - Caffeine Use Caffeine Use: Reports: Coffee - Alcohol Use Alcohol Use History: No - Recreational Drug Use Recreational Drug Use: No - Living Situation & Occupation Living situation: Reports: Occupation: Unemployed ED ROS GENERAL - Review of Systems Review Of Systems: See Below Constitutional: Reports: Fatigue. Denies: Fever, Diaphoresis Respiratory: Reports: Cough. Denies: Shortness of Breath Cardiovascular: Reports: Chest Pain, Lightheadedness Endocrine: Reports: Fatigue GI/Abdominal: Reports: Abdominal Pain. Denies: Constipation, Diarrhea, Nausea Musculoskeletal: Reports: Arm Pain Skin: Denies: Diaphoresis Neurological: Reports: Dizziness ED EXAM, GENERAL - Physical Exam Exam: See Below Exam Limited By: No Limitations General Appearance: Alert, Mild Distress Eye Exam: Bilateral Eye: PERRL Throat/Mouth: Normal Inspection Head: Atraumatic, Normocephalic Respiratory/Chest: Crackles (Expiratory crackles) Cardiovascular: Regular Rate, Rhythm, No Gallop, No Murmur, No Rub GI/Abdominal: Normal Bowel Sounds, Soft, No Distention Skin Exam: Warm, Dry, Normal Color Departure - Departure Disposition: Home, Self-Care 01 Clinical Impression: Atypical chest pain Asthma Qualifiers: Asthma severity: mild Asthma persistence: persistent Asthma complication type: with acute exacerbation Qualified Code(s): J45.31 - Mild persistent asthma with (acute) exacerbation Prescriptions: Albuterol [Proventil HFA] 2 puff INH Q4H PRN #1 inhaler PRN Reason: Shortness Of Breath Referrals: Danny Espino MD [Primary Care Provider] - 1 Week Forms: ED Department Discharge Additional Instructions: Take your medications as prescribed. Use the inhaler 2 puffs every 6 hours as needed for any shortness of breath. Please return if you are worse. Sepsis Event Note (ED) - Evaluation Sepsis Screening Result: No Definite Risk <Óscar Maldonado - Last Filed: 06/02/20 17:39> EKG INTERPRETATION EKG Date: 06/02/20 Time: 13:29 Rhythm: NSR Rate (Beats/Min): 86 Kil[place]: Normal P-Wave: Present QRS: Normal ST-T: Normal QT: Normal Course - Vital Signs Last Recorded V/S: Last Vital Signs Temp 96.6 F L 06/02/20 13:31 Pulse 87 06/02/20 13:31 Resp 16 06/02/20 13:31 BP 89/47 L 06/02/20 13:31 Pulse Ox 93 L 06/02/20 14:49 - Orders/Labs/Meds Orders: Active Orders 24 hr Category Date Time Status EKG Documentation Completion [RC] ASDIRECTED Care 06/02/20 13:35 Active RT Aerosol Therapy [RC] ASDIRECTED Care 06/02/20 14:39 Active HYDROmorphone [Dilaudid] Med 06/02/20 17:35 Once 0.5 mg IVPUSH ONETIME ONE EKG 12 Lead [EK] Stat Ther 06/02/20 13:35 Ordered Labs: Laboratory Tests 06/02/20 06/02/20 06/02/20 Range/Units 13:35 13:35 13:35 WBC 8.82 (4.23-9.07) K/mm3 RBC 4.11 L (4.63-6.08) M/mm3 Hgb 12.6 L (13.7-17.5) gm/dl Hct 38.5 L (40.1-51.0) % MCV 93.7 H (79.0-92.2) fl MCH 30.7 (25.7-32.2) pg MCHC 32.7 (32.2-35.5) g/dl RDW Std Deviation 46.7 H (35.1-43.9) fL Plt Count 348 H D (163-337) K/mm3 MPV 9.1 L (9.4-12.3) fl Neut % (Auto) 47.4 (34.0-67.9) % Lymph % (Auto) 36.5 (21.8-53.1) % [place] % (Auto) 9.5 (5.3-12.2) % Eos % (Auto) 5.8 (0.8-7.0) Baso % (Auto) 0.5 (0.1-1.2) % Neut # (Auto) 4.18 (1.78-5.38) K/mm3 Lymph # (Auto) 3.22 (1.32-3.57) K/mm3 [place] # (Auto) 0.84 H (0.30-0.82) K/mm3 Eos # (Auto) 0.51 (0.04-0.54) K/mm3 Baso # (Auto) 0.04 (0.01-0.08) K/mm3 D-Dimer, Quantitative (0.19-0.50) mg/L Sodium 135 L (136-145) mEq/L Potassium 3.9 (3.5-5.1) mEq/L Chloride 101 (98-107) mEq/L Carbon Dioxide 21 (21-32) mEq/L Anion Gap 16.9 H (5-15) BUN 23 H (7-18) mg/dL Creatinine 2.2 H (0.7-1.3) mg/dL Est Cr Clr Drug Dosing 41.87 mL/min Estimated GFR (MDRD) 31 (>60) mL/min BUN/Creatinine Ratio 10.5 L (14-18) Glucose 187 H (74-106) mg/dL Calcium 7.5 L (8.5-10.1) mg/dL Total Bilirubin 0.4 (0.2-1.0) mg/dL AST 12 L (15-37) U/L ALT 19 (16-63) U/L Alkaline Phosphatase 80 (46-116) U/L Troponin I < 0.017 (0.00-0.056) ng/mL Total Protein 6.8 (6.4-8.2) g/dl Albumin 3.4 (3.4-5.0) g/dl Globulin 3.4 gm/dL Albumin/Globulin Ratio 1.0 (1-2) Lipase 98 (73-393) U/L 06/02/20 06/02/20 Range/Units 13:35 16:24 WBC (4.23-9.07) K/mm3 RBC (4.63-6.08) M/mm3 Hgb (13.7-17.5) gm/dl Hct (40.1-51.0) % MCV (79.0-92.2) fl MCH (25.7-32.2) pg MCHC (32.2-35.5) g/dl RDW Std Deviation (35.1-43.9) fL Plt Count (163-337) K/mm3 MPV (9.4-12.3) fl Neut % (Auto) (34.0-67.9) % Lymph % (Auto) (21.8-53.1) % [place] % (Auto) (5.3-12.2) % Eos % (Auto) (0.8-7.0) Baso % (Auto) (0.1-1.2) % Neut # (Auto) (1.78-5.38) K/mm3 Lymph # (Auto) (1.32-3.57) K/mm3 [place] # (Auto) (0.30-0.82) K/mm3 Eos # (Auto) (0.04-0.54) K/mm3 Baso # (Auto) (0.01-0.08) K/mm3 D-Dimer, Quantitative 0.37 (0.19-0.50) mg/L Sodium (136-145) mEq/L Potassium (3.5-5.1) mEq/L Chloride (98-107) mEq/L Carbon Dioxide (21-32) mEq/L Anion Gap (5-15) BUN (7-18) mg/dL Creatinine (0.7-1.3) mg/dL Est Cr Clr Drug Dosing mL/min Estimated GFR (MDRD) (>60) mL/min BUN/Creatinine Ratio (14-18) Glucose (74-106) mg/dL Calcium (8.5-10.1) mg/dL Total Bilirubin (0.2-1.0) mg/dL AST (15-37) U/L ALT (16-63) U/L Alkaline Phosphatase (46-116) U/L Troponin I < 0.017 (0.00-0.056) ng/mL Total Protein (6.4-8.2) g/dl Albumin (3.4-5.0) g/dl Globulin gm/dL Albumin/Globulin Ratio (1-2) Lipase (73-393) U/L Meds: Medications Discontinued Medications Generic Name Dose Route Start Last Admin Trade Name Wu PRN Reason Stop Dose Admin Albuterol/Ipratropium 3 ml 06/02/20 14:39 06/02/20 14:49 Duoneb 3.0-0.5 Mg/3 Ml NEB 06/02/20 14:40 3 ml ONETIME ONE Administration Aspirin 324 mg 06/02/20 13:56 06/02/20 14:04 Aspirin PO 06/02/20 13:57 324 mg ONETIME ONE Administration Hydromorphone HCl 0.5 mg 06/02/20 14:36 06/02/20 15:07 Dilaudid IVPUSH 06/02/20 14:37 0.5 mg ONETIME ONE Administration Hydromorphone HCl 0.5 mg 06/02/20 16:40 06/02/20 16:59 Dilaudid IVPUSH 06/02/20 16:41 0.5 mg ONETIME ONE Administration Sodium Chloride 1,000 mls @ 1,000 mls/hr 06/02/20 13:56 06/02/20 14:04 Normal Saline IV 06/02/20 14:55 1,000 mls/hr ONETIME ONE Administration - Re-Assessments/Exams Free Text/Narrative Re-Assessment/Exam: 06/02/20 14:42 I examined the patient myself and I agree with Radames's assessment and plan. I ordered an IV NS 1L bolus, aspirin 324mg PO, EKG, CXR, and labs. 06/02/20 17:36 His EKG shows a NSR with no acute changes. His CXR looks good. His troponin is negative. I ordered a duoneb and something more for pain. I ordered a repeat troponin and that looked good. I feel this is related to the asthma. I will get him on some albuterol at home. Departure - Departure Time of Disposition: 17:40 Condition: Good Sepsis Event Note (ED) - Focused Exam Vital Signs: Vital Signs Temp Pulse Resp BP Pulse Ox Pulse Ox 06/02/20 14:49 93 L 06/02/20 13:31 96.6 F L 87 16 89/47 L 98 - My Orders Last 24 Hours: My Active Orders 06/02/20 13:35 EKG Documentation Completion [RC] ASDIRECTED EKG 12 Lead [EK] Stat 06/02/20 14:39 RT Aerosol Therapy [RC] ASDIRECTED 06/02/20 17:35 HYDROmorphone [Dilaudid] 0.5 mg IVPUSH ONETIME ONE - Assessment/Plan Last 24 Hours: My Active Orders 06/02/20 13:35 EKG Documentation Completion [RC] ASDIRECTED EKG 12 Lead [EK] Stat 06/02/20 14:39 RT Aerosol Therapy [RC] ASDIRECTED 06/02/20 17:35 HYDROmorphone [Dilaudid] 0.5 mg IVPUSH ONETIME ONE
[2020-06-02] MEDS ORDERED: HYDROmorphone 0.5 MG/0.5 ML Syringe IVPUSH ONE ×3 (14:36→17:35)
--- NOTE | 2020-06-02 14:36 | CR ---
Chest: Portable view of the chest was obtained. Comparison: Prior chest x-ray of 04/27/20. Heart size and mediastinum are normal. Sternotomy is noted. Surgical clips are seen within the mediastinum. Lungs show no acute parenchymal change. Bony structures are grossly intact. Impression: 1. Nothing acute is appreciated on portable chest x-ray. Diagnostic code #2 This report was dictated in MDT
[2020-06-02] MEDS ORDERED: Albuterol/Ipratropium 3.0-0.5 MG/3 ML Neb Soln NEB ONE (14:39)
== END 2020-06-02 18:01 | disposition home or self-care (01) ==
LOC: JD.ED 13:23
DX: J45.31 Mild persistent asthma with (acute) exacerbation (principal); I25.10 Atherosclerotic heart disease of native coronary artery without angina pectoris; E78.00 Pure hypercholesterolemia, unspecified; I10 Essential (primary) hypertension; K21.9 Gastro-esophageal reflux disease without esophagitis; M19.90 Unspecified osteoarthritis, unspecified site; E11.9 Type 2 diabetes mellitus without complications; F17.210 Nicotine dependence, cigarettes, uncomplicated; Z79.02 Long term (current) use of antithrombotics/antiplatelets; Z79.899 Other long term (current) drug therapy; Z79.82 Long term (current) use of aspirin; Z95.5 Presence of coronary angioplasty implant and graft
CPT/HCPCS: 36415; 71045; 80053; 83690; 84484; 85025; 85379; 93005; 94640; 96361; 96374; 96376; 99285; A9270; J1170; J7030; 93010; 99284; J7620-GY